=== PATIENT | female | born 1945 | race Caucasian/White ===

== ENCOUNTER 2023-02-04 09:50 | Outpatient (AMB) | payer MEDICARE, OTHER, SELFPAY ==
--- NOTE | 2023-02-04 09:52 | A.OFFVIS_ITS ---
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 Zheng) Co-flex device implant by Dr. Balbuena, arthritis, history of shingles with residual post herpetic neuralgia pain presents today for evaluation for potential spinal cord stimulator. She was referred to our office by Dr. Salguero at [facility] . Her pain is localized to the lower back with radiation to both legs. Pain is aggravated with prolonged standing and walking and relieved with rest or sitting down. Reports occasional and intermittent stabbing and burning pain in the projections of left T9-T10 dermatomes. Back pain is constant and rated at 6/10 on average after taking her medications for pain. She also uses marijuana which she grows at home. Pain affects her daily activities, functioning, mobility and social activities. Denies any fever, weight loss, abdominal or groin pain, weakness, foot drop, bladder or bowel dysfunction or saddle anesthesia. Location Lower back radiates to upper thighs Duration Chronic pain for many years, worse after last back surgery. PHN >15 years Characteristics of symptom or complaint Stabbing, burning, aching, sharp, crushing, wrenching, tight, radiating Aggravating or associated factors Standing, walking, changing positions, cold weather changes, stress Relieving factors Oxycodone, Tylenol, sitting down, lidocaine patches, gabapentin, Flexeril Treatment Injections, PT- completed 2 weeks, massage therapy [facility] Medical History (Updated 02/06/23 @ 10:52 by ARAM Blanco) Hypertension Arthritis Postlaminectomy syndrome, not elsewhere classified Postherpetic polyneuropathy Radiculopathy, lumbar region Surgical History (Updated 02/04/23 @ 10:40 by Alexandra Sanchez) History of back surgery Social History Alcohol intake: current Alcohol intake frequency: 0-2 drinks per day Patient Tobacco Use Status: Former Tobacco user Substance Use Type: Marijuana Substance Use Frequency: Daily Review of Systems Const All systems reviewed & are unremarkable except as noted in HPI and below Physical Exam Vital Signs: Last Vital Signs Pulse 65 02/04/23 09:57 BP 145/67 H 02/04/23 09:57 Pulse Ox 96 02/04/23 09:57 Oxygen Delivery Method Room Air 02/04/23 09:57 BMI result Body Mass Index 29.1 General: Appears afebrile. Alert and oriented. Mood and affect appropriate. Follows and participates in conversation appropriately. Respiratory effort is unlabored. No cough. Able to transition from sit to stand unassisted. Uses cane with ambulation. Ambulates with bilaterally normal heel strike and toe off. Chest Other: Mild TTP and allodynia in the projection of left T9-T10 dermatomes Chest palpation & inspection: normal inspection of the chest, no localized rib tenderness, tenderness no rib xxx, no clavicular xxx, no sternal xxx and no sternoclavicular joint xxx and No rash Back/Spine/Pelvis Other: Limited lumbar ROM due to pain, worse pain with extension. Can flex forward to 65-75 degrees and extend to 5-10 degrees before experiencing lumbar pain. Demonstrates 5/5 strength of quadriceps bilaterally as well as flexion/dorsiflexion of bilateral feet against resistance. 2+ pedal pulses bilaterally. Seated straight leg rise with dorsiflexion negative bilaterally. Diminished patellar and achilles reflexes bilaterally. Facet loading test positive bilaterally. Matt sign, Yg?s, Pelvic compression and Stinchfield tests are negative bilaterally. No groin pain with I/E hip rotations. Valsalva maneuver negative. Cervical Spine: cervical ROM normal and No Cervical spine tenderness Thoracic/Lumbar Spine: thoracic and lumbar spine normal to inspection, Thoracic/lumbar spine scar(s), Lasegue's sign negative, straight leg raise negative bilaterally, pain with thoraco-lumbar ROM, paraspinal muscle tenderness, thoraco-lumbar ROM limited, No thoracic spinal tenderness and lumbar spinal tenderness at L4 and at L5 Pelvis: no buttock tenderness Sacroiliac joints: bilaterally nontender Results Reviewed Results Reviewed: Assessment & Plan Assessment & Plan (1) Lumbar degenerative disc disease: Code(s): M51.36 - Other intervertebral disc degeneration, lumbar region (2) Radiculopathy, lumbar region: Code(s): M54.16 - Radiculopathy, lumbar region (3) Postherpetic polyneuropathy: Code(s): B02.23 - Postherpetic polyneuropathy (4) Postlaminectomy syndrome, not elsewhere classified: Code(s): M96.1 - Postlaminectomy syndrome, not elsewhere classified Plan Discussed treatment options for post laminectomy, lumbar radiculopathy, and PHN including therapeutic injections and neuromodulation with Nevro SCS trial and implant, Sprint PNS trial and Qutenza for PHN. Informational pamphlets were provided to patient today. Patient is hesitant towards SCS trial at this time, she would to review informational pamphlets at home and discuss it with her family. In meantime, she is interested to undergo Caudal KATLYN with catheter with local and fluoroscopy for postlaminectomy syndrome. Expectations, risks and benefits were reviewed. Patient is aware she will be contacted to schedule this procedure. All questions were answered and the patient is in agreement of plan. Follow-up after injections and sooner as needed. Coding Level of Care Code New Pt Level 4 (89632) Diagnoses Lumbar degenerative disc disease M51.36 Radiculopathy, lumbar region M54.16 Postherpetic polyneuropathy B02.23 Postlaminectomy syndrome, not elsewhere classified M96.1
[2023-02-04 09:57] VITALS: BP 145/67; PULSE 65; O2SAT 96; BMI 29.1
== END 2023-02-04 10:40 | disposition home or self-care (01) ==
PROVIDERS: PCP Physician Assistant Medical; Referring Provider Physician Assistant Medical; Visit Provider Nurse Practitioner Family
DX: M51.36 Other intervertebral disc degeneration, lumbar region (principal); M54.16 Radiculopathy, lumbar region; B02.23 Postherpetic polyneuropathy; M96.1 Postlaminectomy syndrome, not elsewhere classified
CPT/HCPCS: 99204

== ENCOUNTER → 2023-02-04 09:50 | Outpatient (BNVA) | payer MEDICARE, OTHER, SELFPAY | PROVIDERS: PCP Physician Assistant Medical; Referring Provider Physician Assistant Medical; Visit Provider Nurse Practitioner Family | DX: M51.36 Other intervertebral disc degeneration, lumbar region (principal); M54.16 Radiculopathy, lumbar region; M96.1 Postlaminectomy syndrome, not elsewhere classified; B02.23 Postherpetic polyneuropathy | CPT/HCPCS: 99202 ==

== ENCOUNTER 2023-03-02 06:08 | Outpatient (REF) | payer MEDICARE, OTHER, SELFPAY ==
--- NOTE | ~2023-03-02 | FL_ITS ---
EXAMINATION: XR FLUOROSCOPY WITH IMAGES CLINICAL INFORMATION: Postlaminectomy syndrome. COMPARISON: None available. TECHNIQUE: Fluoroscopy Supervised By: Little Perry APRN Fluoroscopy Time: 0.3 minutes. Cumulative Dose: 4.76 mGy. DAP: 0.0671 mGym2. Images: 3. FINDINGS: 3 images demonstrate a needle overlying the region of what appears to be the sacrum but this is not optimally seen. Some contrast appears to be present in the epidural space. Please see Little Perry's procedure note for full details. FL/FL guidance in treatment room IMPRESSION: Fluoroscopy provided to the referring physician for pain management.
== END 2023-03-02 06:09 | disposition home or self-care (01) ==
LOC: CF 06:08
PROVIDERS: Visit Provider Anesthesiology
DX: M96.1 Postlaminectomy syndrome, not elsewhere classified (principal); M51.36 Other intervertebral disc degeneration, lumbar region; M54.16 Radiculopathy, lumbar region; B02.23 Postherpetic polyneuropathy
CPT/HCPCS: 62323; J3301; Q9967

== ENCOUNTER 2023-03-02 08:39 | Outpatient (AMB) | payer MEDICARE, OTHER, SELFPAY ==
[2023-03-02 08:43] VITALS: BP 120/60; PULSE 81; RESP 14; O2SAT 98; BMI 29.1
--- NOTE | 2023-03-02 08:43 | MHC.OFFVIS ---
Intake Vital Signs 03/02/23 08:43 03/02/23 09:37 Height 5 ft 2 in 5 ft 2 in Weight 159 lb 2 oz 159 lb 2 oz BMI 29.1 29.1 BP 120/60 130/76 Blood Pressure Location Rt brachial Lt brachial Position Sitting Sitting Respiration 14 14 Pulse 81 67 Pulse Source Pulse Oximeter Pulse Oximeter Pulse Oximetry (%) 98 100 Oxygen Delivery Method Room Air Room Air Comment pre-op post-op Intake Visit Reasons: CAUDAL KATLYN WITH CATHETER Allergies No Known Allergies Allergy (Verified 03/02/23 08:44) [facility] Medical History (Updated 02/06/23 @ 10:52 by ARAM Blanco) Hypertension Arthritis Postlaminectomy syndrome, not elsewhere classified Postherpetic polyneuropathy Radiculopathy, lumbar region Surgical History (Updated 02/04/23 @ 10:40 by Alexandra Sanchez) History of back surgery Social History Alcohol intake: current Alcohol intake frequency: 0-2 drinks per day Patient Tobacco Use Status: Former Tobacco user Substance Use Type: Marijuana Physical Exam Vital Signs: Last Vital Signs Pulse 67 03/02/23 09:37 Resp 14 03/02/23 09:37 BP 130/76 03/02/23 09:37 Pulse Ox 100 03/02/23 09:37 Oxygen Delivery Method Room Air 03/02/23 09:37 BMI result Body Mass Index 29.1 Assessment & Plan Assessment & Plan (1) Lumbar degenerative disc disease: Code(s): M51.36 - Other intervertebral disc degeneration, lumbar region Plan: Caudal KATLYN with catheter. Informed consent was explained to the patient. All questions were explained and answered. The patient was taken inside of the operating room where she was positioned prone on the operating table. Time-out was performed delineating patient's name and date of , correct site, side, the nature of the procedure, patient's allergy, All operating room staff and the patient were participating in OR time-out procedure. the patient's lower back buttock and intragluteal crease were prepped with ChloraPrep and draped with sterile utility draped. C-arm was brought over the operating field and sq picture of sacral bone was delineated on the screen. the target of needle insertion was chosen as a caudal hiatus. The projection of the caudal hiatus to the skin was chosen as point of local anesthetic injection. 2% lidocaine 3 mls were injected into the skin. After that 18 G Tuohy needle was inserted through the skin and under intermittent AP and lateral guide was advanced into the sacral hiatus and into the caudal canal . injection of the contrast demonstrated epidural spread of the contrast. After that 22 g epidual catheter was advanced into the epidural space until the resistance was met and the injection of the contrast was performed again. The injection of the contrast was delineating epidural space at the S1 intervale. After that injection of 30 mls of normal saline was performed into the catheter. Following this injection of the lidocaine 1% PF mixed with kenalog 40 mg was performed with the catheter. The needle and the catheter were removed en mass, the tip of the catheter was intact. Sterile bandaid was applied.The patient tolerated the procedure very well. (2) Radiculopathy, lumbar region: Code(s): M54.16 - Radiculopathy, lumbar region (3) Postherpetic polyneuropathy: Code(s): B02.23 - Postherpetic polyneuropathy (4) Postlaminectomy syndrome, not elsewhere classified: Code(s): M96.1 - Postlaminectomy syndrome, not elsewhere classified Plan Discussed treatment options for post laminectomy, lumbar radiculopathy, and PHN including therapeutic injections and neuromodulation with Nevro SCS trial and implant, Sprint PNS trial and Qutenza for PHN. Informational pamphlets were provided to patient today. Patient is hesitant towards SCS trial at this time, she would to review informational pamphlets at home and discuss it with her family. In meantime, she is interested to undergo Caudal KATLYN with catheter with local and fluoroscopy for postlaminectomy syndrome. Expectations, risks and benefits were reviewed. Patient is aware she will be contacted to schedule this procedure. All questions were answered and the patient is in agreement of plan. Follow-up after injections and sooner as needed. Orders: Orders FL guidance in treatment room Today M96.1 - Postlaminectomy syndrome, not elsewhere classified Coding Level of Care Code Procedure Only Diagnoses Lumbar degenerative disc disease M51.36 Radiculopathy, lumbar region M54.16 Postherpetic polyneuropathy B02.23 Postlaminectomy syndrome, not elsewhere classified M96.1
[2023-03-02 09:37] VITALS: BP 130/76; PULSE 67; RESP 14; O2SAT 100; BMI 29.1
== END 2023-03-02 09:25 | disposition home or self-care (01) ==
PROVIDERS: PCP Physician Assistant Medical; Visit Provider Anesthesiology
DX: M51.36 Other intervertebral disc degeneration, lumbar region (principal); M54.16 Radiculopathy, lumbar region; B02.23 Postherpetic polyneuropathy; M96.1 Postlaminectomy syndrome, not elsewhere classified
CPT/HCPCS: 62323

== ENCOUNTER 2023-03-09 10:37 | Outpatient (AMB) | payer MEDICARE, OTHER, SELFPAY ==
--- NOTE | 2023-03-09 10:39 | A.OFFVIS_ITS ---
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 Cedeno. Patient reports complete resolution of her symptoms for first 2 days after procedure and ongoing 40% pain relief. She continoues to experience increased back pain with prolonged standing and walking for which she takes oxycodone. Patient reports since procedure last week, she took oxycodone only once. We reviewed SCS trial and implant again today for a longer term pain management. Patient will continue her pain levels for next few months and notify our office regarding neuromodulation treatment with SCS trial. Denies any recent cough, cold, infection, fever or other significant changes in medical history or recent hospitalizations since last office visit. Patient denies bladder or bowel dysfunction or saddle anesthesia. Past Procedures: 03/02/23: Caudal KATLYN with catheter- 100% pain relief for 2 days, ongoing 40% pain relief PRIOR: Patient is a pleasant 77 years old female with past medical history of lumbar fusion (2020 Dr. Zheng) Co-flex device implant by Dr. Balbuena, arthritis, history of shingles with residual post herpetic neuralgia pain presents today for evaluation for potential spinal cord stimulator. She was referred to our office by [facility] . Her pain is localized to the lower back with radiation to both legs. Pain is aggravated with prolonged standing and walking and relieved with rest or sitting down. Reports occasional and intermittent stabbing and burning pain in the projections of left T9-T10 dermatomes. Back pain is constant and rated at 6/10 on average after taking her medications for pain. She also uses marijuana which she grows at home. Pain affects her daily activities, functioning, mobility and social activities. Denies any fever, weight loss, abdominal or groin pain, weakness, foot drop, bladder or bowel dysfunction or saddle anesthesia. Location Lower back radiates to upper thighs Duration Chronic pain for many years, worse after last back surgery. PHN >15 years Characteristics of symptom or complaint Stabbing, burning, aching, sharp, crushing, wrenching, tight, radiating Aggravating or associated factors Standing, walking, changing positions, cold weather changes, stress Relieving factors Oxycodone, Tylenol, sitting down, lidocaine patches, gabapentin, Flexeril Treatment Injections, PT- completed 2 weeks, massage therapy [facility] Medical History Hypertension Arthritis Postlaminectomy syndrome, not elsewhere classified Postherpetic polyneuropathy Radiculopathy, lumbar region Surgical History History of back surgery Social History Alcohol intake: current Alcohol intake frequency: 0-2 drinks per day Patient Tobacco Use Status: Former Tobacco user Substance Use Type: Marijuana Review of Systems Const All systems reviewed & are unremarkable except as noted in HPI and below Physical Exam Vital Signs: Last Vital Signs Pulse 89 03/09/23 10:43 BP 158/72 H 03/09/23 10:43 Pulse Ox 97 03/09/23 10:43 Oxygen Delivery Method Room Air 03/09/23 10:43 BMI result Body Mass Index 29.1 General: Appears afebrile. Alert and oriented. Mood and affect appropriate. Follows and participates in conversation appropriately. Respiratory effort is unlabored. No cough. Able to transition from sit to stand unassisted. Uses cane with ambulation. Ambulates with bilaterally normal heel strike and toe off. Back/Spine/Pelvis Cervical Spine: cervical ROM normal and No Cervical spine tenderness Thoracic/Lumbar Spine: thoracic and lumbar spine normal to inspection, Thoracic/lumbar spine scar(s), Lasegue's sign negative, straight leg raise negative bilaterally, pain with thoraco-lumbar ROM, paraspinal muscle tenderness, thoraco-lumbar ROM limited, No thoracic spinal tenderness and lumbar spinal tenderness at L4 and at L5 Extrem General: Yes capillary refill normal, Yes no clubbing, cyanosis or edema and Yes no calf tenderness Results Reviewed Results Reviewed: Assessment & Plan Assessment & Plan (1) Lumbar degenerative disc disease: Code(s): M51.36 - Other intervertebral disc degeneration, lumbar region (2) Radiculopathy, lumbar region: Code(s): M54.16 - Radiculopathy, lumbar region (3) Postlaminectomy syndrome, not elsewhere classified: Code(s): M96.1 - Postlaminectomy syndrome, not elsewhere classified Plan Patient is status post Caudal KATLYN with catheter injection last week. She had 100% pain relief for the first 2 days after procedure and ongoing 40% pain relief. She will continue to monitor her pain levels and notify our office when her symptoms return to baseline. Patient reports improved functioning, mobility and decreased opioid use since procedure. Patient is aware that she can not receive another injection in this area for another three months. Patient is aware to monitor for side effects. We also reviewed longer term interventional treatments and returned to topic of SCS trial and implant. Patient will notify our office on her decision. She is aware of Behavioral Assessment Referral prior to SCS trial. All questions were answered and the patient is in agreement of plan. Follow-up after injections and sooner as needed. Coding Level of Care Code Est Pt Level 3 (10839) Diagnoses Lumbar degenerative disc disease M51.36 Radiculopathy, lumbar region M54.16 Postlaminectomy syndrome, not elsewhere classified M96.1
[2023-03-09 10:43] VITALS: BP 158/72; PULSE 89; O2SAT 97; BMI 29.1
== END 2023-03-09 11:03 | disposition home or self-care (01) ==
PROVIDERS: PCP Physician Assistant Medical; Visit Provider Nurse Practitioner Family
DX: M51.36 Other intervertebral disc degeneration, lumbar region (principal); M54.16 Radiculopathy, lumbar region; M96.1 Postlaminectomy syndrome, not elsewhere classified
CPT/HCPCS: 99213

== ENCOUNTER → 2023-03-09 10:37 | Outpatient (BNVA) | payer MEDICARE, OTHER, SELFPAY | PROVIDERS: PCP Physician Assistant Medical; Visit Provider Nurse Practitioner Family | DX: M96.1 Postlaminectomy syndrome, not elsewhere classified (principal); M51.36 Other intervertebral disc degeneration, lumbar region; M54.16 Radiculopathy, lumbar region; Z98.890 Other specified postprocedural states | CPT/HCPCS: 99212 ==

== ENCOUNTER 2023-05-14 07:16 | Day surgery (SDC) | payer MEDICARE, OTHER, SELFPAY ==
--- NOTE | 2023-05-13 08:53 | P.CONAN_ITS ---
Documented by User: Lorenza Gonzalez NP 05/13/23 08:53 HPI - Anesthesia Eval Consult details Narrative: 77yo F for Spinal Cord Stimulation Trial [facility] Active Problems Active Problems: All Active Problems (Updated 02/06/23 @ 10:52 by ARAM Blanco) Lumbar degenerative disc disease (Acute) Radiculopathy, lumbar region (Acute) Postherpetic polyneuropathy (Acute) Postlaminectomy syndrome, not elsewhere classified (Acute) Past Medical History Medical History Hypertension Arthritis Postlaminectomy syndrome, not elsewhere classified Postherpetic polyneuropathy Radiculopathy, lumbar region Surgical History Surgical History History of back surgery Social History Social History Alcohol intake: current Alcohol intake frequency: a few times a week Patient Tobacco Use Status: Former Tobacco user Second Hand Smoke Exposure: No Use of substances other than those prescribed or required for medical reasons: Yes Substance Use Type: Marijuana Are you DNR?: No Advance Directives: No Advance Directives Information Provided: Yes Advance Directives on File: No Meds Allergies Allergy/AdvReac Type Severity Reaction Status Date / Time No Known Allergies Allergy Verified 03/09/23 10:45 Home Medications Medication Instructions Recorded Confirmed Last Taken Type amlodipine 10 mg tablet 10 mg PO DAILY 02/04/23 05/14/23 Unknown History atorvastatin 40 mg tablet 40 mg PO BEDTIME 02/04/23 05/14/23 05/14/23 History bupropion HCl 300 mg 24 hr tablet, 300 mg PO QAM 02/04/23 05/14/23 05/14/23 History extended release cyclobenzaprine 5 mg tablet 5 mg PO BEDTIME 02/04/23 05/14/23 Unknown History hydrochlorothiazide 25 mg tablet 25 mg PO DAILY 02/04/23 05/14/23 Unknown History oxycodone 5 mg tablet 5 mg PO TID PRN Pain 02/04/23 05/14/23 Unknown History famotidine 40 mg tablet 40 mg PO DAILY 03/09/23 05/14/23 Unknown History lidocaine 5 % topical patch 1 patch topical 03/09/23 03/09/23 Unknown History Assessment and Plan Assessment Anesthesia Assessment: Chart Reviewed Documented by User: Huan Turner MD 05/14/23 08:18 [facility] Past Medical History Medical History Hypertension Arthritis Postlaminectomy syndrome, not elsewhere classified Postherpetic polyneuropathy Radiculopathy, lumbar region Family History Family history of problems with anesthesia: No Surgical History Surgical History History of back surgery History of Problems with Anesthesia: No Social History Social History Alcohol intake: current Alcohol intake frequency: a few times a week Patient Tobacco Use Status: Former Tobacco user Second Hand Smoke Exposure: No Use of substances other than those prescribed or required for medical reasons: Yes Substance Use Type: Marijuana Are you DNR?: No Advance Directives: No Advance Directives Information Provided: Yes Advance Directives on File: No Meds Allergies Allergy/AdvReac Type Severity Reaction Status Date / Time No Known Allergies Allergy Verified 03/09/23 10:45 Home Medications Medication Instructions Recorded Confirmed Last Taken Type amlodipine 10 mg tablet 10 mg PO DAILY 02/04/23 05/14/23 Unknown History atorvastatin 40 mg tablet 40 mg PO BEDTIME 02/04/23 05/14/23 05/14/23 History bupropion HCl 300 mg 24 hr tablet, 300 mg PO QAM 02/04/23 05/14/23 05/14/23 History extended release cyclobenzaprine 5 mg tablet 5 mg PO BEDTIME 02/04/23 05/14/23 Unknown History hydrochlorothiazide 25 mg tablet 25 mg PO DAILY 02/04/23 05/14/23 Unknown History oxycodone 5 mg tablet 5 mg PO TID PRN Pain 02/04/23 05/14/23 Unknown History famotidine 40 mg tablet 40 mg PO DAILY 03/09/23 05/14/23 Unknown History lidocaine 5 % topical patch 1 patch topical 03/09/23 03/09/23 Unknown History Exam Airway Mallampati Class: II TM Dist: <=3cm Neck ROM: Full Loose/Missing/Broken Teeth: No Heart: rrr Lungs: cta b/l Assessment and Plan Assessment Anesthesia Assessment: Anesthesia Plan Discussed and Smoking Cess. Discussed Final Anesthetic Review Family History of Problems with Anesthesia: No History of Problems with Anesthesia: No NPO: Yes ASA Class: II Final Preanesthetic Review: No Changes in Pt Med Stat, Consent Obtained/Reviewed and Anes Risks/Benef Reviewed Patient Risk: Intermediate Procedure Risk: Low Anesthetic Plan Anesthetic Plan: MAC: Disposition: Standard PACU
[2023-05-14] VITALS (7 sets, daily range): BP systolic 115–141; BP diastolic 62–84; PULSE 69–87; RESP 14–19; TEMP 36.2–36.8; O2SAT 96–99; BMI 29.3
--- NOTE | ~2023-05-14 | FL_ITS ---
EXAMINATION: XR FLUOROSCOPY WITH IMAGES CLINICAL INFORMATION: Spinal cord stimulation trial COMPARISON: Intraprocedural fluoroscopy dated 03/12/2023 TECHNIQUE: Fluoroscopy Supervised By: Little Perry. Fluoroscopy Time: 5 minutes 12 seconds. Cumulative Dose: 25.564 mGy. DAP: 75.103 Gycm2. Images: 2. FINDINGS: 2 images demonstrate a spinal cord stimulator overlying the thoracic spine epidural space. Please see Little Perry's procedure note for full details. FL/FL guidance in OR IMPRESSION: Fluoroscopy provided to the referring physician for pain management.
--- NOTE | 2023-05-14 09:13 | MHC.SHP ---
Pre-Procedural Eval Section A - 24 Hr Update-Section A only Date of Service: 05/14/23 The patient is an INPATIENT: No Changes since office visit: Yes Patient answered all questions The patient has been examined within 24 hours of the surgical procedure. The History & Physical has been completed within 30 days and I have reviewed it.: No Section B - Complete if H&P > 30 days Chief Complaint: Postlaminectomy syndrome,Radiculopathy, lumbar Details of Present Illness: as above Relevant Family History (Specify if Yes): No Relevant Social History: None Present Medications: see Short Stay Collaborative assessment Medical History: No relevant PMH History of Previous Operations: Relevant previous surgery/procedure and date(s) Allergies: Allergies Allergy/AdvReac Type Severity Reaction Status Date / Time No Known Allergies Allergy Verified 03/09/23 10:45 Review of Systems Sugical H&P ROS: Negative: Constitution, Cardiovascular, Respiratory, Neurological, Psychiatric, Hem-Onc, Allergic/Immunologic, Gastrointestinal, Genitourinary, Integumentary, Endocrine and Eyes/Ears/Nose/Throat and Yes, Specify: Musculoskeletal (postlaminectomy syndrome ) Exam Surgical H&P Exam: Normal: HEENT, Normal: Heart, Normal: Lungs, Normal: Extremities, Normal: Abdomen, Normal: Skin and Normal: Neurological Plan I have reviewed the history and physical and performed a pertinent physical examination on my patient. No changes have occurred unless specified. Time Spent With Patient Time: Total time managing care of this patient today __5__ minutes.
--- NOTE | 2023-05-14 10:58 | PM.OP ---
Brief Operative Note Date of Service: 05/14/23 Pre-op diagnosis: postlaminectomy syndrome, chronic pain syndrome. Post-op diagnosis: same Procedure: Trial of Nevro SCS. Surgeon: Abdias Cedeno MD Anesthesia: MAC Was an Digital Marketing Assistant used for this Procedure?: No Estimated blood loss (mL): 10 Condition: stable Disposition: PACU
--- NOTE | 2023-05-14 11:00 | P.OP_ITS ---
Operative Note Operative Note Date of Service: 05/14/23 Narrative: Lesa calderon pleasant 77 y.o. female who came to the operating room for trial of spinal cord stimulator Nevro for the treatment of postlaminectomy syndrome and chronic pain syndrome. ?Preoperatively patient received ? cefazolin 2 g approximately 15 minutes before the procedure. After obtaining informed consent the patient was brought to the operating room, he was positioned prone on operating table, ASA monitors were applied and the patient was sedated. ?Time-out was performed delineating correct site, side, the nature of the procedure, patient's allergy, preoperative antibiotic if needed.? All operating room staff was participating in OR time-out procedure. Patient's entire back was prepped with Chloraprep twice and draped with full body fenestrated laparoscopy drape.? Sterilely draped C-arm was brought over operating field and square picture of the T12, L1 and L2 vertebrae? were demonstrated on the screen.? ?Attention FIRST? was concentrated on the T12-L1 epidural interspace. Right pedicle of the L2 was located on the screen and the projection of the pedicle was injected with 5 cc of lidocaine 2% mixture with ropivacaine 0.5% mixture 1- 1.After that 11 blade was used to make a mulugeta on the skin.? 10 cm 14 gauge? introducer epidural needle was inserted through the mulugeta and advanced to T12- L1 epidural interspace.? The advancement of the needle was performed on anterior posterior and lateral views.?Loss of resistance to air? technique were used to locate epidural space., guitar wire was used to confirm epidural space,epidural lead was inserted through the needle and? advanced to the projection of the top of T8 vertebral body strictly on the midline. Lateral view demonstrated posterior position of the lead. ? .? After that? the location of the projection of the LEFT pedicle center of the?L2 vertebras was found on the skin using C-arm.? This location was injected with mixture of lidocaine 2% and Marcaine 0.5% 5 cc.? After that 11 blade was used to make a mulugeta on the skin.? 10 cm 14 gauge introducer epidural needle was inserted through the mulugeta and advanced to T12-L1 epidural interspace.? The advancement of the needle was performed on anterior posterior and lateral views.? Guitar wire and loss of resistance to air technique were used to locate epidural space.? guitar wire was used to confirm epidural space,epidural lead was inserted through the needle and? advanced to the projection of the top T9 vertebral body left to the existing electrode. Lateral view was obtained demonstrating appropriate position of the electrode in the posterior epidural space. Impedance was checked? and it was found to be satisfactory.? Posterior lead placement was verified by lateral x-ray. ?The needles were withdrawn, the stylette wires were removed from the epidural leads.? The anchoring devices were dislodged on the leads and advanced to the level of the skin.? The anchoring devices were sutured with two 0-0 ?Silk sutures per each anchor to the skin of the patient. The central fixation screw of each anchor was rotated until three clicks were heard. The leads were connected to testing device.? Sterile dressing was applied to the patient's back.? The testing device was also taped to the patient's back.? the patient tolerated procedure well she was awaken and taken outside of the operating room to recovery room. he recovered uneventfully.
--- NOTE | 2023-05-14 11:59 | PC.NURSE ---
Addendum entered by Blake Bynum 05/14/23 12:10: Patient was then cleared to be discharged following [employer]IC[employer] giving oxycodone. Original Note: Patient was beleived to have oxycodone allergy by Dr. Cedeno and RUPERT Sanchez. After speaking to patient it was reveiled she takes oxycodone at home. Wilian Garcia and anesthsia cleared patient to have oxycodone at this time. Anesthesia RUPERT Sanchez pulled oxycodone 5mg and oleg to patient. States she will print anesthesia record
== END 2023-05-14 12:25 | disposition home or self-care (01) ==
PROVIDERS: PCP Physician Assistant Medical; Visit Provider Anesthesiology
PROC: (CPT 63650; principal; 2023-05-14 09:20)
DX: M96.1 Postlaminectomy syndrome, not elsewhere classified (principal); G89.4 Chronic pain syndrome; M51.36 Other intervertebral disc degeneration, lumbar region; M54.16 Radiculopathy, lumbar region; B02.29 Other postherpetic nervous system involvement; I10 Essential (primary) hypertension; M19.90 Unspecified osteoarthritis, unspecified site; Z98.1 Arthrodesis status; Z79.899 Other long term (current) drug therapy; Z87.891 Personal history of nicotine dependence
CPT/HCPCS: 63650 ×2; C1713; C1897; J0131; J0690; J1100; J1596; J2250; J2405; J2704; J2795

== ENCOUNTER → 2023-05-14 07:16 | Outpatient (BNV) | payer MEDICARE, OTHER, SELFPAY | PROVIDERS: PCP Physician Assistant Medical; Visit Provider Anesthesiology | DX: M96.1 Postlaminectomy syndrome, not elsewhere classified (principal); M54.16 Radiculopathy, lumbar region | CPT/HCPCS: 63650 ==

== ENCOUNTER 2023-05-20 09:41 | Outpatient (AMB) | payer MEDICARE, OTHER, SELFPAY ==
--- NOTE | 2023-05-20 09:46 | MHC.OFFVIS ---
Intake Vital Signs 05/20/23 09:51 Height 5 ft 2 in Weight 160 lb BMI 29.3 BP 137/65 Blood Pressure Location Rt brachial Position Sitting Pulse 71 Pulse Source Pulse Oximeter Pulse Oximetry (%) 98 Oxygen Delivery Method Room Air Intake Visit Reasons: S/p NEVRO SCS Trial 05/14/23 Intake Note: Pain today 06/01 Balance Wheel Facer Required: No Accompanied by: Self / Same As Patient Allergies No Known Allergies Allergy (Verified 05/20/23 09:51) HPI HPI Comments History of Present Illness Details Patient presents today status post Nevro SCS trial on with Dr. Cedeno. Patient reports 85% pain relief during one week of SCS trial for her back pain and leg pain. Patient notices increased mobility, better functioning, better range of motion in her symptoms and better sleep. She reports being able to stand up almost straight and sleep through the night. Patient would like to proceed with an implant of SCS with Nevro. Frank samuels from [facility] was also present during today's visit. The tape was removed. The stimulating battery pad was disconnected from the epidural leads. These sites of the insertion were cleansed with ChloraPrep and the sutures were severed. The epidural leads were removed and the tips were intact. No erythema, swelling, tenderness or pathological discharge was noted. Bacitracin ointment, dry sterile and Tegaderm dressing were applied. Past Procedures: 05/14/23: Lumbar SCS Trial-85% pain relief 03/02/23: Caudal KATLYN with catheter- 100% pain relief for 2 days, ongoing 40% pain relief PRIOR: Patient is a pleasant 77 years old female with past medical history of lumbar fusion (2020 Dr. Zheng) Co-flex device implant by Dr. Balbuena, arthritis, history of shingles with residual post herpetic neuralgia pain presents today for evaluation for potential spinal cord stimulator. She was referred to our office by Dr. Salguero at [facility] . Her pain is localized to the lower back with radiation to both legs. Pain is aggravated with prolonged standing and walking and relieved with rest or sitting down. Reports occasional and intermittent stabbing and burning pain in the projections of left T9-T10 dermatomes. Back pain is constant and rated at 6/10 on average after taking her medications for pain. She also uses marijuana which she grows at home. Pain affects her daily activities, functioning, mobility and social activities. Denies any fever, weight loss, abdominal or groin pain, weakness, foot drop, bladder or bowel dysfunction or saddle anesthesia. Location Lower back radiates to upper thighs Duration Chronic pain for many years, worse after last back surgery. PHN >15 years Characteristics of symptom or complaint Stabbing, burning, aching, sharp, crushing, wrenching, tight, radiating Aggravating or associated factors Standing, walking, changing positions, cold weather changes, stress Relieving factors Oxycodone, Tylenol, sitting down, lidocaine patches, gabapentin, Flexeril Treatment Injections, PT- completed 2 weeks, massage therapy [facility] Medical History Hypertension Arthritis Postlaminectomy syndrome, not elsewhere classified Postherpetic polyneuropathy Radiculopathy, lumbar region Surgical History History of back surgery Social History Alcohol intake: current Alcohol intake frequency: a few times a week Patient Tobacco Use Status: Former Tobacco user Second Hand Smoke Exposure: No Substance Use Type: Marijuana Review of Systems Const All systems reviewed & are unremarkable except as noted in HPI and below Physical Exam Vital Signs: Last Vital Signs Pulse 71 05/20/23 09:51 BP 137/65 05/20/23 09:51 Pulse Ox 98 05/20/23 09:51 Oxygen Delivery Method Room Air 05/20/23 09:51 BMI result Body Mass Index 29.3 General: Appears afebrile. Alert and oriented. Mood and affect appropriate. Follows and participates in conversation appropriately. Respiratory effort is unlabored. Able to transition from sit to stand unassisted. Uses cane with ambulation. Ambulates with bilaterally normal heel strike and toe off. Leads removed with tips intact. Assessment & Plan Assessment & Plan (1) Lumbar degenerative disc disease: Code(s): M51.36 - Other intervertebral disc degeneration, lumbar region (2) Radiculopathy, lumbar region: Code(s): M54.16 - Radiculopathy, lumbar region (3) Postlaminectomy syndrome, not elsewhere classified: Code(s): M96.1 - Postlaminectomy syndrome, not elsewhere classified (4) Chronic low back pain: Code(s): M54.50 - Low back pain, unspecified; G89.29 - Other chronic pain Plan Schedule for Lumbar SCS Implant with sedation and fluoroscopy given good relief seen from trial. Reviewed with patient the risks and benefits of spinal cord stimulation implant in greater detail. Patient reports better mobility, better social interactions, better activities of daily living and improved sleep. All questions and concerns have been answered and patient agreed with the plan. Follow up after SCS implant and sooner as needed. Anticoagulation: Patient is not on anticoagulation. Justification for interventional therapy: ? Patient with average pain > 6/10 ? Patient has exhausted conservative therapy ? SCS trial 85% pain relief The risks, consequences, alternatives, and benefits of various treatment options were discussed with the patient in great detail, including conservative management, injections and procedures. Coding Level of Care Code Est Pt Level 4 (95533) Diagnoses Lumbar degenerative disc disease M51.36 Radiculopathy, lumbar region M54.16 Postlaminectomy syndrome, not elsewhere classified M96.1 Chronic low back pain M54.50; G89.29
[2023-05-20 09:51] VITALS: BP 137/65; PULSE 71; O2SAT 98; BMI 29.3
== END 2023-05-20 10:10 | disposition home or self-care (01) ==
PROVIDERS: PCP Physician Assistant Medical; Visit Provider Nurse Practitioner Family
DX: M51.36 Other intervertebral disc degeneration, lumbar region (principal); M54.16 Radiculopathy, lumbar region; M96.1 Postlaminectomy syndrome, not elsewhere classified; M54.50 Low back pain, unspecified; G89.29 Other chronic pain
CPT/HCPCS: 99024

== ENCOUNTER → 2023-05-20 09:41 | Outpatient (BNVA) | payer MEDICARE, OTHER, SELFPAY | PROVIDERS: PCP Physician Assistant Medical; Visit Provider Nurse Practitioner Family | DX: M96.1 Postlaminectomy syndrome, not elsewhere classified (principal); M51.16 Intervertebral disc disorders with radiculopathy, lumbar region; M54.50 Low back pain, unspecified; G89.29 Other chronic pain; B02.23 Postherpetic polyneuropathy | CPT/HCPCS: 99212 ==

== ENCOUNTER 2023-06-11 09:21 | Day surgery (SDC) | payer MEDICARE, OTHER, SELFPAY ==
[2023-06-01 15:05] VITALS: BMI 29.3
[2023-06-11] VITALS (11 sets, daily range): BP systolic 127–149; BP diastolic 56–76; PULSE 58–77; RESP 16–18; TEMP 36.2–37.6; O2SAT 98–100; BMI 30.9
--- NOTE | ~2023-06-11 | FL_ITS ---
EXAMINATION: XR FLUOROSCOPY WITH IMAGES CLINICAL INFORMATION: Spinal cord stimulation implant COMPARISON: Fluoroscopic guidance for 05/12/2023 TECHNIQUE: Fluoroscopy Supervised By: Dr. Abdias Cedeno. Fluoroscopy Time: 4 minutes 19.3 seconds. Cumulative Dose: 43.652 mGy. DAP: 18.988 Gycm2. Images: 3. FINDINGS: 2 images demonstrate a spinal cord stimulator overlying the thoracic spine epidural space. A single image demonstrates interpedicular screws and fusion rods in the lower lumbar spine on the right. Please see Dr. Cedeno's procedure note for full details. FL/FL guidance in OR IMPRESSION: Fluoroscopy provided to the referring physician for pain management.
[2023-06-11] MEDS: Lactated Ringers 1,000 ML 80 ML IVCONT (10:34)
--- NOTE | 2023-06-11 10:55 | HO.ANESPROP2 ---
[facility] Active Problems Active Problems: All Active Problems Chronic low back pain (Acute) Lumbar degenerative disc disease (Acute) Radiculopathy, lumbar region (Acute) Postherpetic polyneuropathy (Acute) Postlaminectomy syndrome, not elsewhere classified (Acute) Past Medical History Medical History (Updated 06/01/23 @ 15:00 by Rylee Goodrich RN) Elevated cholesterol Hypertension Arthritis Postlaminectomy syndrome, not elsewhere classified Postherpetic polyneuropathy Radiculopathy, lumbar region Family History Family history of problems with anesthesia: No Surgical History Surgical History (Updated 06/11/23 @ 09:46 by Arianne Mckeon) H/O lumpectomy History of surgery History of back surgery History of Problems with Anesthesia: No Social History Social History Alcohol intake: current Alcohol intake frequency: a few times a week Patient Tobacco Use Status: Former Tobacco user Quit Date: 2003 Tobacco use type: Cigarette Years Smoked: 30 Smoked in Last 30 Days: No Second Hand Smoke Exposure: No Use of substances other than those prescribed or required for medical reasons: Yes Substance Use Type: Marijuana Substance Use Frequency: Daily Are you DNR?: No Advance Directives: No Advance Directives Information Provided: Yes Meds Allergies Allergy/AdvReac Type Severity Reaction Status Date / Time No Known Allergies Allergy Verified 06/11/23 09:44 Active Medications: Current Medications Lactated Ringer's (Lr) 1,000 mls @ 80 mls/hr IVCONT .[id number] WILSON Last Admin: 06/11/23 10:34 Dose: 80 mls/hr Home Medications ?Medication ?Instructions ?Recorded ?Confirmed ?Last Taken ?Type amlodipine 10 mg tablet 10 mg PO DAILY 02/04/23 06/01/23 Unknown History atorvastatin 40 mg tablet 40 mg PO BEDTIME 02/04/23 06/11/23 06/11/23 History bupropion HCl 300 mg 24 hr tablet, 300 mg PO QAM 02/04/23 06/01/23 05/14/23 History extended release hydrochlorothiazide 25 mg tablet 25 mg PO DAILY 02/04/23 06/11/23 06/10/23 History oxycodone 5 mg tablet 5 mg PO TID PRN Pain 02/04/23 06/01/23 Unknown History famotidine 40 mg tablet 40 mg PO DAILY 03/09/23 06/01/23 Unknown History lidocaine 5 % topical patch 1 patch topical DAILY 03/09/23 06/01/23 Unknown History mirabegron 50 mg tablet,extended 50 mg PO DAILY 05/20/23 06/01/23 Unknown History release 24 hr (Myrbetriq) Tylenol 2 tab PO DAILY PRN Pain 06/11/23 06/11/23 06/11/23 History 1000 mg Exam Height,Weight and Vital Signs: Height 5 ft 2 in Weight 76.657 kg Last Vital Signs Temp 99.7 F 06/11/23 09:56 Pulse 63 06/11/23 09:56 Resp 16 06/11/23 09:56 BP 149/57 H 06/11/23 09:56 Pulse Ox 99 06/11/23 09:56 O2 Del Method Room Air 06/11/23 09:56 Airway Mallampati Class: II TM Dist: >3cm Neck ROM: Full Loose/Missing/Broken Teeth: Yes (18 broken) Heart: rrr Lungs: cta Assessment and Plan Final Anesthetic Review Family History of Problems with Anesthesia: No History of Problems with Anesthesia: No NPO: Yes ASA Class: II Final Preanesthetic Review: No Changes in Pt Med Stat, Meds/Allgs Chart Reviewed, Consent Obtained/Reviewed and Anes Risks/Benef Reviewed Patient Risk: Intermediate Procedure Risk: Intermediate Anesthetic Plan Anesthetic Plan: GA Disposition: Standard PACU
--- NOTE | 2023-06-11 12:26 | MHC.SHP ---
Pre-Procedural Eval Section A - 24 Hr Update-Section A only Date of Service: 06/11/23 The patient is an INPATIENT: No Changes since office visit: Yes Patient answered all questions The patient has been examined within 24 hours of the surgical procedure. The History & Physical has been completed within 30 days and I have reviewed it.: No Section B - Complete if H&P > 30 days Chief Complaint: Postlaminectomy syndrome,Other intervertebral disc Details of Present Illness: as above Relevant Family History (Specify if Yes): No Relevant Social History: None Present Medications: None Medical History: No relevant PMH History of Previous Operations: Relevant previous surgery/procedure and date(s) Allergies: Allergies Allergy/AdvReac Type Severity Reaction Status Date / Time No Known Allergies Allergy Verified 06/11/23 09:44 Review of Systems Sugical H&P ROS: Negative: Constitution, Cardiovascular, Respiratory, Neurological, Psychiatric, Hem-Onc, Allergic/Immunologic, Gastrointestinal, Genitourinary, Integumentary, Endocrine and Eyes/Ears/Nose/Throat and Yes, Specify: Musculoskeletal (postlaminectomy syndrome ) Exam Surgical H&P Exam: Normal: HEENT, Normal: Heart, Normal: Lungs, Normal: Extremities, Normal: Abdomen, Normal: Skin and Normal: Neurological Plan I have reviewed the history and physical and performed a pertinent physical examination on my patient. No changes have occurred unless specified. Time Spent With Patient Time: Total time managing care of this patient today ____ minutes.
--- NOTE | 2023-06-11 14:25 | PM.OP ---
Brief Operative Note Date of Service: 06/11/23 Pre-op diagnosis: Postlaminectomy syndrome chronic pain syndrome Post-op diagnosis: same Procedure: Implantation of Nevro spinal cord stimulator Implants: Omnia Nevro battery and 2 ascending epidural stimulating leads. Surgeon: Abdias Ceedno MD Anesthesia: GETA Was an Manager Educational used for this Procedure?: No Estimated blood loss (mL): 16 Pathology: none sent Condition: stable Disposition: PACU
--- NOTE | 2023-06-11 14:28 | W.PM.OPN ---
Operative Note Operative Note Date of Service: 06/11/23 Narrative: Implantation of the SCS Nevro. Mcfadden is very pleasant 77 years old female who came today into the operating room for implantation of spinal cord stimulator for the treatment of chronic pain syndrome and postlaminectomy syndrome.. Preoperatively patient received ?cefazolin 2 g approximately 30 minutes before the procedure. After obtaining informed consent the patient was brought to the operating room, she was supine on the stretcher? [employer] monitors were applied and general anesthesia was induced with endotracheal intubation. After that patient was transferred to the operating table prone all pressure points were protected. ?Time-out was performed delineating correct site, side, the nature of the procedure, patient's allergy, preoperative antibiotic if needed.? All operating room staff was participating in OR time-out procedure Patient's entire back was prepped with ChloraPrep twice and draped with full body fenestrated drape and ioban film.? Sterilely draped C-arm was brought over operating field and square picture of? T12-L1 and [id number] as were demonstrated on the screen.? The skin was? infiltrated with the mixture of lidocaine 2% and ropivacaine 0.5% in the projection of m L1 and L2? spinouse procesess.?? After that? number 10 Blade scalpel was used to perform strict midline 6 cm? long incision.? the incision was widened and deepened until the prevertebral fascia was reached. Thorough hemostasis was obtained,? After that attention? was concentrated on the T12-L1 epidural interspace.? The location of the projection of the right pedicle center of the? L2 vertebra was found on the fascia using C-arm.? This location was injected with mixture of lidocaine 2% and Marcaine 0.5% 5 cc.? ? 10 cm 14 gauge? introducer epidural needle was inserted through the prevertebral fascia and advanced to? T12-L1 epidural interspace.? The advancement of the needle was performed on anterior posterior and lateral views.? Guitar wire and loss of resistance technique were used to locate epidural space.? When guitar wire was spread in the epidural fashion, epidural lead was inserted through the needle and it was advanced to the posterior epidural space.The lead was advanced? strictly at the midline? approximately to the?bottom of T7 vertebra in the posterior epidural space. Location in posterior epidural space was verified on lateral view. ? After that location of the projection of the LEFT pedicle center of the L2 vertebra was found using C-arm.? This location was injected with mixture of lidocaine 2% and Marcaine 0.5% 5 cc.?10 cm 14 gauge? introducer epidural needle was inserted through the fascia and advanced to T12-L1 epidural interspace.? The advancement of the needle was performed on anterior posterior and lateral views.? Guitar wire and loss of resistance technique were used to locate epidural space.? When guitar wire was spread in the epidural fashion, epidural lead was inserted through the needle.? Loss of resistance to air technique and guitar wire were used to locate epidural space. After that the? epidural lead was advanced? slightly left to the existing electrode to the top of the? T9 vertebra in the posterior epidural space slightly left to the existing electrode.? lateral image was obtained demonstrating both epidural leads in posterior epidural space. After satisfactory position of the leads were established the needles were withdrawn, the stylette wires were removed from the epidural leads.? The anchoring devices were dislodged on the leads and advanced to the level of the prevertebral fascia.?After that the anchoring devices were sutured to the prevertebral fascia using Tycron 0-0 sutures - 2 sutures per each anchoroing device?. The both fixation screws were locked until 3 clicks heard. The wound was irrigated with vancomycin containing saline and packed with the 4x4 soaked with the same saline solution. After that attention was concentrated on the right upper buttock of the patient ? were the decision was made to implant the battery.? Three cm below the top of the right iliac crest horizontal incision was made 6.5 cm long using 10 blade scalpel, hemostasis was performed using? electric cautery..? Using sharp and dull dissection pocket for the battery was formed in caudad direction from the incision.? Thorough hemostasis was performed.? After that the? wound pocket was? irrigated with vancomycin containing normal saline and tunneling device was used to connect midline incision and upper buttock incision Tunneling device was used to connect the two wounds.? The epidural leads were dislodged from midline incision to the right upper buttock incision through the tunneling device.? After that they were connected to the [employer] battery and impedance was checked? and found to be satisfactory with all leads connected.? Anchoring? screws were fixed on the back of the battery until 3 clicks were heard..? Tycron of 0- 0 sutures were applied to the superior lateral and superior medial corners of the upper portion of the pocket? wound and after that the anchoring sutures were connected to the anchoring orifices on the battery.? Electrodes were gathered behind the body of the battery and battery was dislodged into the? subcutaneous pocket wound.? The sutures were tied and? irrigation was repeated.? After that?0-0 Polysorb sutures? used to close the? both wounds and the 0-2 polisorb sutures were used to apptoximate the level of the skin , [place] were applied to the skin and bacitracin ointment was applied to the staple lines. The sterile dressing comprised of several 4x4 for each wound was affixed to the skin using Tegaderm tape.. The patient was transferred supine on the stretcher,? awaken, Extubated and transferred stable to the PACU.
[2023-06-11] MEDS: HYDROmorphone HCl 0.5 MG/0.5 ML SYRINGE IVPUSH ×3 (14:48→15:08)
== END 2023-06-11 16:16 | disposition home or self-care (01) ==
PROVIDERS: PCP Physician Assistant Medical; Visit Provider Anesthesiology
PROC: (CPT 63685; principal; 2023-06-11 11:20)
DX: M51.36 Other intervertebral disc degeneration, lumbar region (principal); M54.16 Radiculopathy, lumbar region; M96.1 Postlaminectomy syndrome, not elsewhere classified; G89.29 Other chronic pain; M54.50 Low back pain, unspecified; B02.23 Postherpetic polyneuropathy; I10 Essential (primary) hypertension; E78.00 Pure hypercholesterolemia, unspecified; M19.90 Unspecified osteoarthritis, unspecified site; Z79.899 Other long term (current) drug therapy; Z98.1 Arthrodesis status; Z87.891 Personal history of nicotine dependence
CPT/HCPCS: 63685; 63650 ×2; C1778; C1889; J0690; J1170; J2250; J2704; J2795; J3010; J3370

== ENCOUNTER → 2023-06-11 09:21 | Outpatient (BNV) | payer MEDICARE, OTHER, SELFPAY | PROVIDERS: PCP Physician Assistant Medical; Visit Provider Anesthesiology | DX: M96.1 Postlaminectomy syndrome, not elsewhere classified (principal); G89.4 Chronic pain syndrome | CPT/HCPCS: 63650; 63685 ==

== ENCOUNTER 2023-06-17 09:40 | Outpatient (AMB) | payer MEDICARE, OTHER, SELFPAY ==
[2023-06-17 09:42] VITALS: BP 150/72; PULSE 69; O2SAT 98; BMI 30.6
--- NOTE | 2023-06-17 09:42 | MHC.OFFVIS ---
Vital Signs 06/17/23 09:42 Height 5 ft 2 in Weight 167 lb 2 oz BMI 30.6 BP 150/72 H Blood Pressure Location Rt brachial Position Sitting Pulse 69 Pulse Source Pulse Oximeter Pulse Oximetry (%) 98 Oxygen Delivery Method Room Air Intake Visit Reasons: S/p Nevro SCS Implant 06/11/23 Allergies No Known Allergies Allergy (Verified 06/17/23 09:46) HPI Comments Details: Lesa is here today status post Nevro SCS implant on 05/11/2023. She reports today pain 5/10. She is on minimal power with her Nevro SCS. She continues to were abdominal binder. The abdominal binder was trimmed today appropriately to apply the pressure on the to the area of the device. Limitation in hygiene and mobility explained to the patient again. The patient was asking multiple questions and they were answered. The dressing was removed the area of the wounds were inspected. There is no redness no swelling no pathological discharge no tenderness on palpation in the area of both wounds. Christian are competent. The dressing was changed with bacitracin and sterile gauze. Tegaderm was applied. Patient will be in my office in 1 week to remove christian. After that the device will be turned on to full power. Patient reports 85% pain relief during one week of SCS trial for her back pain and leg pain. Patient notices increased mobility, better functioning, better range of motion in her symptoms and better sleep. She reports being able to stand up almost straight and sleep through the night. Patient would like to proceed with an implant of SCS with Nevro. Frank samuels from [facility] was also present during today's visit. Past Procedures: 05/14/23: Lumbar SCS Trial-85% pain relief 03/02/23: Caudal KATLYN with catheter- 100% pain relief for 2 days, ongoing 40% pain relief PRIOR: Patient is a pleasant 77 years old female with past medical history of lumbar fusion (2020 Dr. Zheng) Co-flex device implant by Dr. Balbuena, arthritis, history of shingles with residual post herpetic neuralgia pain presents today for evaluation for potential spinal cord stimulator. [facility] Her pain is localized to the lower back with radiation to both legs. Pain is aggravated with prolonged standing and walking and relieved with rest or sitting down. Reports occasional and intermittent stabbing and burning pain in the projections of left T9-T10 dermatomes. Back pain is constant and rated at 6/10 on average after taking her medications for pain. She also uses marijuana which she grows at home. Pain affects her daily activities, functioning, mobility and social activities. Denies any fever, weight loss, abdominal or groin pain, weakness, foot drop, bladder or bowel dysfunction or saddle anesthesia. Location Lower back radiates to upper thighs Duration Chronic pain for many years, worse after last back surgery. PHN >15 years Characteristics of symptom or complaint Stabbing, burning, aching, sharp, crushing, wrenching, tight, radiating Aggravating or associated factors Standing, walking, changing positions, cold weather changes, stress Relieving factors Oxycodone, Tylenol, sitting down, lidocaine patches, gabapentin, Flexeril Treatment Injections, PT- completed 2 weeks, massage therapy [facility] Medical History (Updated 06/01/23 @ 15:00 by Rylee Goodrich RN) Elevated cholesterol Hypertension Arthritis Postlaminectomy syndrome, not elsewhere classified Postherpetic polyneuropathy Radiculopathy, lumbar region Surgical History (Updated 06/11/23 @ 09:46 by Arianne Mckeon) H/O lumpectomy History of surgery History of back surgery Social History Alcohol intake: current Alcohol intake frequency: a few times a week Patient Tobacco Use Status: Former Tobacco user Quit Date: 2003 Tobacco use type: Cigarette Years Smoked: 30 Second Hand Smoke Exposure: No Substance Use Type: Marijuana Review of Systems Const All systems reviewed & are unremarkable except as noted in HPI and below Physical Exam Vital Signs: Last Vital Signs Pulse 69 06/17/23 09:42 BP 150/72 H 06/17/23 09:42 Pulse Ox 98 06/17/23 09:42 Oxygen Delivery Method Room Air 06/17/23 09:42 BMI result Body Mass Index 30.6 General: Appears afebrile. Alert and oriented. Mood and affect appropriate. Follows and participates in conversation appropriately. Respiratory effort is unlabored. No cough. Able to transition from sit to stand unassisted. Uses cane with ambulation. Ambulates with bilaterally normal heel strike and toe off. Chest Other: Mild TTP and allodynia in the projection of left T9-T10 dermatomes Chest palpation & inspection: normal inspection of the chest, no localized rib tenderness, tenderness no rib xxx, no clavicular xxx, no sternal xxx and no sternoclavicular joint xxx and No rash Back/Spine/Pelvis Other: Limited lumbar ROM due to pain, worse pain with extension. Can flex forward to 65-75 degrees and extend to 5-10 degrees before experiencing lumbar pain. Demonstrates 5/5 strength of quadriceps bilaterally as well as flexion/dorsiflexion of bilateral feet against resistance. 2+ pedal pulses bilaterally. Seated straight leg rise with dorsiflexion negative bilaterally. Diminished patellar and achilles reflexes bilaterally. Facet loading test positive bilaterally. Matt sign, Yg?s, Pelvic compression and Stinchfield tests are negative bilaterally. No groin pain with I/E hip rotations. Valsalva maneuver negative. Cervical Spine: cervical ROM normal and No Cervical spine tenderness Thoracic/Lumbar Spine: thoracic and lumbar spine normal to inspection, Thoracic/lumbar spine scar(s), Lasegue's sign negative, straight leg raise negative bilaterally, pain with thoraco-lumbar ROM, paraspinal muscle tenderness, thoraco-lumbar ROM limited, No thoracic spinal tenderness and lumbar spinal tenderness at L4 and at L5 Pelvis: no buttock tenderness Sacroiliac joints: bilaterally nontender Assessment & Plan Assessment & Plan (1) Lumbar degenerative disc disease: Code(s): M51.36 - Other intervertebral disc degeneration, lumbar region Category: Medical (2) Radiculopathy, lumbar region: Code(s): M54.16 - Radiculopathy, lumbar region Category: Medical (3) Postlaminectomy syndrome, not elsewhere classified: Code(s): M96.1 - Postlaminectomy syndrome, not elsewhere classified Category: Medical (4) Chronic low back pain: Code(s): M54.50 - Low back pain, unspecified; G89.29 - Other chronic pain Category: Medical Plan Results of the Lumbar SCS Implant as above. Next appointment in 1 week. Staple removals at that appointment. After that the device will be turned full power. Anticoagulation: Patient is not on anticoagulation. Justification for interventional therapy: ? Patient with average pain > 6/10 ? Patient has exhausted conservative therapy ? SCS trial 85% pain relief Coding Level of Care Code Est Pt Level 3 (56423) Diagnoses Lumbar degenerative disc disease M51.36 Radiculopathy, lumbar region M54.16 Postlaminectomy syndrome, not elsewhere classified M96.1 Chronic low back pain M54.50; G89.29
== END 2023-06-17 10:12 | disposition home or self-care (01) ==
PROVIDERS: PCP Physician Assistant Medical; Visit Provider Anesthesiology
DX: M51.36 Other intervertebral disc degeneration, lumbar region (principal); M54.16 Radiculopathy, lumbar region; M96.1 Postlaminectomy syndrome, not elsewhere classified; M54.50 Low back pain, unspecified; G89.29 Other chronic pain
CPT/HCPCS: 99024

== ENCOUNTER → 2023-06-17 09:40 | Outpatient (BNVA) | payer MEDICARE, OTHER, SELFPAY | PROVIDERS: PCP Physician Assistant Medical; Visit Provider Anesthesiology | DX: M51.36 Other intervertebral disc degeneration, lumbar region (principal); M54.16 Radiculopathy, lumbar region; M54.50 Low back pain, unspecified; G89.29 Other chronic pain; M96.1 Postlaminectomy syndrome, not elsewhere classified; Z96.82 Presence of neurostimulator | CPT/HCPCS: 99212 ==

== ENCOUNTER 2023-06-24 09:32 | Outpatient (AMB) | payer MEDICARE, OTHER, SELFPAY ==
--- NOTE | 2023-06-24 09:35 | A.OFFVIS_ITS ---
Vital Signs 06/24/23 09:42 Height 5 ft 2 in Weight 167 lb 2 oz BMI 30.6 BP 132/84 Blood Pressure Location Lt brachial Position Sitting Respiration 16 Pulse 76 Pulse Source Pulse Oximeter Pulse Oximetry (%) 98 Oxygen Delivery Method Room Air Intake Visit Reasons: 2 Week F/u S/p Nevro SCS Implant 06/11/23 Intake Note: Patient comes in for 2 weeks follow up. Reports pain 06/01. Allergies No Known Allergies Allergy (Verified 06/24/23 09:42) HPI Comments Details: Lesa is here today status post Nevro SCS implant on 05/11/2023. SHE REPORTED VERY GOOD PAIN IMPROVEMENT ON NEVRO SCS. She continues to wear abdominal binder. T she bought electrical bicycle to exercise however I requested her to avoid riding it for 6 more weeks. Limitation in hygiene and mobility explained to the patient again. The dressing was removed the area of the wounds were inspected. There is no redness no swelling no pathological discharge no tenderness on palpation in the area of both wounds. [place] were removed The dressing was changed with bacitracin and Tegaderm. The machine will be turned onto full power and patient will start to charge the battery now. Patient reports 85% pain relief during one week of SCS trial for her back pain and leg pain. Patient notices increased mobility, better functioning, better range of motion in her symptoms and better sleep. She reports being able to stand up almost straight and sleep through the night. Patient would like to proceed with an implant of SCS with Nevro. Frank samuels from [facility] was also present during today's visit. Past Procedures: 05/14/23: Lumbar SCS Trial-85% pain relief 03/02/23: Caudal KATLYN with catheter- 100% pain relief for 2 days, ongoing 40% pain relief PRIOR: Patient is a pleasant 77 years old female with past medical history of lumbar fusion (2020 Dr. Zheng) Co-flex device implant by Dr. Balbuena, arthritis, history of shingles with residual post herpetic neuralgia pain presents today for evaluation for potential spinal cord stimulator. She was referred to our office by Dr. Salguero at [facility] . Her pain is localized to the lower back with radiation to both legs. Pain is aggravated with prolonged standing and walking and relieved with rest or sitting down. Reports occasional and intermittent stabbing and burning pain in the projections of left T9-T10 dermatomes. Back pain is constant and rated at 6/10 on average after taking her medications for pain. She also uses marijuana which she grows at home. Pain affects her daily activities, functioning, mobility and social activities. Denies any fever, weight loss, abdominal or groin pain, weakness, foot drop, bladder or bowel dysfunction or saddle anesthesia. Location Lower back radiates to upper thighs Duration Chronic pain for many years, worse after last back surgery. PHN >15 years Characteristics of symptom or complaint Stabbing, burning, aching, sharp, crushing, wrenching, tight, radiating Aggravating or associated factors Standing, walking, changing positions, cold weather changes, stress Relieving factors Oxycodone, Tylenol, sitting down, lidocaine patches, gabapentin, Flexeril Treatment Injections, PT- completed 2 weeks, massage therapy COUNT INCLUDES [facility] Medical History (Updated 06/01/23 @ 15:00 by Rylee Goodrich RN) Elevated cholesterol Hypertension Arthritis Postlaminectomy syndrome, not elsewhere classified Postherpetic polyneuropathy Radiculopathy, lumbar region Surgical History (Updated 06/11/23 @ 09:46 by Arianne Mckeon) H/O lumpectomy History of surgery History of back surgery Social History Alcohol intake: current Alcohol intake frequency: a few times a week Patient Tobacco Use Status: Former Tobacco user Quit Date: 2003 Tobacco use type: Cigarette Years Smoked: 30 Second Hand Smoke Exposure: No Substance Use Type: Marijuana Review of Systems Const All systems reviewed & are unremarkable except as noted in HPI and below Physical Exam Vital Signs: Last Vital Signs Pulse 76 06/24/23 09:42 Resp 16 06/24/23 09:42 BP 132/84 06/24/23 09:42 Pulse Ox 98 06/24/23 09:42 Oxygen Delivery Method Room Air 06/24/23 09:42 BMI result Body Mass Index 30.6 General: Appears afebrile. Alert and oriented. Mood and affect appropriate. Follows and participates in conversation appropriately. Respiratory effort is unlabored. No cough. Able to transition from sit to stand unassisted. Uses cane with ambulation. Ambulates with bilaterally normal heel strike and toe off. Chest Other: Mild TTP and allodynia in the projection of left T9-T10 dermatomes Chest palpation & inspection: normal inspection of the chest, no localized rib tenderness, tenderness no rib xxx, no clavicular xxx, no sternal xxx and no sternoclavicular joint xxx and No rash Back/Spine/Pelvis Other: Limited lumbar ROM due to pain, worse pain with extension. Can flex forward to 65-75 degrees and extend to 5-10 degrees before experiencing lumbar pain. Demonstrates 5/5 strength of quadriceps bilaterally as well as flexion/dorsiflexion of bilateral feet against resistance. 2+ pedal pulses bilaterally. Seated straight leg rise with dorsiflexion negative bilaterally. Diminished patellar and achilles reflexes bilaterally. Facet loading test positive bilaterally. Matt sign, Yg?s, Pelvic compression and Stinchfield tests are negative bilaterally. No groin pain with I/E hip rotations. Valsalva maneuver negative. Cervical Spine: cervical ROM normal and No Cervical spine tenderness Thoracic/Lumbar Spine: thoracic and lumbar spine normal to inspection, Thoracic/lumbar spine scar(s), Lasegue's sign negative, straight leg raise negative bilaterally, pain with thoraco-lumbar ROM, paraspinal muscle tenderness, thoraco-lumbar ROM limited, No thoracic spinal tenderness and lumbar spinal tenderness at L4 and at L5 Pelvis: no buttock tenderness Sacroiliac joints: bilaterally nontender Assessment & Plan Assessment & Plan (1) Lumbar degenerative disc disease: Code(s): M51.36 - Other intervertebral disc degeneration, lumbar region Category: Medical (2) Radiculopathy, lumbar region: Code(s): M54.16 - Radiculopathy, lumbar region Category: Medical (3) Postlaminectomy syndrome, not elsewhere classified: Code(s): M96.1 - Postlaminectomy syndrome, not elsewhere classified Category: Medical (4) Chronic low back pain: Code(s): M54.50 - Low back pain, unspecified; G89.29 - Other chronic pain Category: Medical Plan Results of the Lumbar SCS Implant as above. Christian are removed next appointment is as needed. Coding Level of Care Code Est Pt Level 3 (57485) Diagnoses Lumbar degenerative disc disease M51.36 Radiculopathy, lumbar region M54.16 Postlaminectomy syndrome, not elsewhere classified M96.1 Chronic low back pain M54.50; G89.29
[2023-06-24 09:42] VITALS: BP 132/84; PULSE 76; RESP 16; O2SAT 98; BMI 30.6
== END 2023-06-24 10:05 | disposition home or self-care (01) ==
PROVIDERS: PCP Physician Assistant Medical; Visit Provider Anesthesiology
DX: M51.36 Other intervertebral disc degeneration, lumbar region (principal); M54.16 Radiculopathy, lumbar region; M96.1 Postlaminectomy syndrome, not elsewhere classified; M54.50 Low back pain, unspecified; G89.29 Other chronic pain
CPT/HCPCS: 99213

== ENCOUNTER → 2023-06-24 09:32 | Outpatient (BNVA) | payer MEDICARE, OTHER, SELFPAY | PROVIDERS: PCP Physician Assistant Medical; Visit Provider Anesthesiology | DX: M51.36 Other intervertebral disc degeneration, lumbar region (principal); M54.16 Radiculopathy, lumbar region; M96.1 Postlaminectomy syndrome, not elsewhere classified; M54.50 Low back pain, unspecified; G89.29 Other chronic pain | CPT/HCPCS: 99212 ==

== ENCOUNTER → 2023-11-18 14:35 | Outpatient (BNVA) | payer MEDICARE, OTHER, SELFPAY | PROVIDERS: PCP Physician Assistant Medical; Visit Provider Nurse Practitioner Family ==

== ENCOUNTER 2024-01-27 08:41 | Outpatient (AMB) | payer MEDICARE, OTHER, SELFPAY ==
--- NOTE | 2024-01-27 08:46 | A.OFFVIS_ITS ---
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 Physical exam is as below. I suspect the arthritis of the right hip. I will send her for the x-ray. The battery of Nevro SCS is implanted on the right and could be an obstacle to perform the images as well as to perform the injection. But I do not mind to try. I also recommended her to take ibuprofen 200 mg q.6 hours not p.r.n. and rather on the clock for the next 10 days to help her pain. I will see her for the right hip injection. Prior: status post Nevro SCS implant on 05/11/2023. Past Procedures: 05/14/23: Lumbar SCS Trial-85% pain relief 03/02/23: Caudal KATLYN with catheter- 100% pain relief for 2 days, ongoing 40% pain relief PRIOR: Patient is a pleasant 77 years old female with past medical history of lumbar fusion (2020 Dr. Zheng) Co-flex device implant by Dr. Balbuena, arthritis, history of shingles with residual post herpetic neuralgia pain presents today for evaluation for potential spinal cord stimulator. She was referred to our office by Dr. Salguero at [facility] . Her pain is localized to the lower back with radiation to both legs. Pain is aggravated with prolonged standing and walking and relieved with rest or sitting down. Reports occasional and intermittent stabbing and burning pain in the projections of left T9-T10 dermatomes. Back pain is constant and rated at 6/10 on average after taking her medications for pain. She also uses marijuana which she grows at home. Pain affects her daily activities, functioning, mobility and social activities. Denies any fever, weight loss, abdominal or groin pain, weakness, foot drop, bladder or bowel dysfunction or saddle anesthesia. Location Lower back radiates to upper thighs Duration Chronic pain for many years, worse after last back surgery. PHN >15 years Characteristics of symptom or complaint Stabbing, burning, aching, sharp, crushing, wrenching, tight, radiating Aggravating or associated factors Standing, walking, changing positions, cold weather changes, stress Relieving factors Oxycodone, Tylenol, sitting down, lidocaine patches, gabapentin, Flexeril Treatment Injections, PT- completed 2 weeks, massage therapy [facility] Medical History (Updated 01/27/24 @ 09:19 by Abdias Cedeno MD) Elevated cholesterol Hypertension Arthritis Postlaminectomy syndrome, not elsewhere classified Postherpetic polyneuropathy Radiculopathy, lumbar region Surgical History (Updated 06/11/23 @ 09:46 by Arianne Mckeon RN) H/O lumpectomy History of surgery History of back surgery Social History Alcohol intake: current Alcohol intake frequency: a few times a week Patient Tobacco Use Status: Former Tobacco user Tobacco use type: Cigarette Years Smoked: 30 Second Hand Smoke Exposure: No Substance Use Type: Marijuana Review of Systems Const All systems reviewed & are unremarkable except as noted in HPI and below Physical Exam Vital Signs: Last Vital Signs Pulse 71 01/27/24 08:50 BP 159/73 H 01/27/24 08:50 Pulse Ox 98 01/27/24 08:50 Oxygen Delivery Method Room Air 01/27/24 08:50 BMI result Body Mass Index 28.9 General: Appears afebrile. Alert and oriented. Mood and affect appropriate. Follows and participates in conversation appropriately. Respiratory effort is unlabored. No cough. Able to transition from sit to stand unassisted. Uses cane with ambulation. Ambulates with bilaterally normal heel strike and toe off. Chest Other: Mild TTP and allodynia in the projection of left T9-T10 dermatomes Chest palpation & inspection: normal inspection of the chest, no localized rib tenderness, tenderness no rib xxx, no clavicular xxx, no sternal xxx and no sternoclavicular joint xxx and No rash Back/Spine/Pelvis Other: Limited lumbar ROM due to pain, worse pain with extension. Can flex forward to 65-75 degrees and extend to 5-10 degrees before experiencing lumbar pain. Demonstrates 5/5 strength of quadriceps bilaterally as well as flexion/dorsiflexion of bilateral feet against resistance. 2+ pedal pulses bilaterally. Seated straight leg rise with dorsiflexion negative bilaterally. Diminished patellar and achilles reflexes bilaterally. Facet loading test positive bilaterally. Matt sign, Yg?s, Pelvic compression and Stinchfield tests are negative bilaterally. No groin pain with I/E hip rotations. Valsalva maneuver negative. Cervical Spine: cervical ROM normal and No Cervical spine tenderness Thoracic/Lumbar Spine: thoracic and lumbar spine normal to inspection, Thoracic/lumbar spine scar(s), Lasegue's sign negative, straight leg raise negative bilaterally, pain with thoraco-lumbar ROM, paraspinal muscle tenderness, thoraco-lumbar ROM limited, No thoracic spinal tenderness and lumbar spinal tenderness at L4 and at L5 Pelvis: no buttock tenderness Sacroiliac joints: bilaterally nontender Extrem Other: Lateral and medial rotation of the right thigh severe discomfort in the right groin. Assessment & Plan Assessment & Plan (1) Osteoarthritis of right hip: Code(s): M16.11 - Unilateral primary osteoarthritis, right hip Category: Medical (2) Right hip pain: Code(s): M25.551 - Pain in right hip Category: Medical (3) Lumbar degenerative disc disease: Code(s): M51.36 - Other intervertebral disc degeneration, lumbar region Category: Medical (4) Radiculopathy, lumbar region: Code(s): M54.16 - Radiculopathy, lumbar region Category: Medical (5) Postlaminectomy syndrome, not elsewhere classified: Code(s): M96.1 - Postlaminectomy syndrome, not elsewhere classified Category: Medical (6) Chronic low back pain: Code(s): M54.50 - Low back pain, unspecified; G89.29 - Other chronic pain Category: Medical Plan Status post Nevro SCS implant as above. The implant was performed in April of 2023. Now patient is in my office complaining on pain in the right hip joint. I will schedule her for right hip steroid injection. I will schedule her for x-ray of the right hip with x-ray of the pelvis. It could be difficult evaluation because of the presence of the Nevro battery on the right. Meanwhile while waiting for the procedure I will recommend her to start taking ibuprofen for next 10 days on the clock 200 mg every 6 hours not p.r.n.. I will see her after the procedure. Orders: Orders XR hip RT w PEL1V Today M16.11 - Unilateral primary osteoarthritis, right hip, M25.551 - Pain in right hip Patient Instructions: I here by testify that I spent 32 minutes in conversation with this patient as well as planning her care and organizing this note. Coding Level of Care Code Est Pt Level 4 (17657) Diagnoses Osteoarthritis of right hip M16.11 Right hip pain M25.551 Lumbar degenerative disc disease M51.36 Radiculopathy, lumbar region M54.16 Postlaminectomy syndrome, not elsewhere classified M96.1 Chronic low back pain M54.50; G89.29
[2024-01-27 08:50] VITALS: BP 159/73; PULSE 71; O2SAT 98; BMI 28.9
== END 2024-01-27 09:19 | disposition home or self-care (01) ==
PROVIDERS: PCP Physician Assistant Medical; Visit Provider Anesthesiology
DX: M16.11 Unilateral primary osteoarthritis, right hip (principal); M25.551 Pain in right hip; M51.369 Other intervertebral disc degeneration, lumbar region without mention of lumbar back pain or lower extremity pain; M54.16 Radiculopathy, lumbar region; M96.1 Postlaminectomy syndrome, not elsewhere classified; M54.50 Low back pain, unspecified; G89.29 Other chronic pain
CPT/HCPCS: 99214

== ENCOUNTER 2024-01-27 08:41 | Outpatient (REF) | payer MEDICARE, OTHER, SELFPAY ==
--- NOTE | ~2024-01-27 | XR_ITS ---
EXAMINATION: XR RIGHT HIP CLINICAL INFORMATION: Unilateral primary osteoarthritis, right hip M16.11. COMPARISON: None available. TECHNIQUE: Two views of the right hip. FINDINGS: Bones and soft tissues are normal. No fracture. Alignment is anatomic. Mild right hip degenerative changes. XR/XR hip RT w PEL1V IMPRESSION: Mild right hip degenerative changes. Electronically signed by: Maldonado Kate MD 02/15/2024 01:24 PM EST
== END 2024-01-27 08:42 | disposition home or self-care (01) ==
LOC: HO.XRAY 08:41
PROVIDERS: PCP Physician Assistant Medical; Visit Provider Anesthesiology
DX: M16.11 Unilateral primary osteoarthritis, right hip (principal); M25.551 Pain in right hip; M51.360 Other intervertebral disc degeneration, lumbar region with discogenic back pain only; M54.16 Radiculopathy, lumbar region; M96.1 Postlaminectomy syndrome, not elsewhere classified; M54.50 Low back pain, unspecified; G89.29 Other chronic pain
CPT/HCPCS: 73502; 99212

== ENCOUNTER 2024-06-29 09:48 | Outpatient (AMB) | payer MEDICARE, OTHER, SELFPAY ==
--- NOTE | 2024-06-29 09:52 | A.OFFVIS_ITS ---
Vital Signs 3 06/29/24 09:54 Height 5 ft 2 in Weight 170 lb BMI 31.1 BP 182/75 H Blood Pressure Location Lt brachial Position Sitting Respiration 16 Pulse 78 Pulse Source Pulse Oximeter Pulse Oximetry (%) 98 Oxygen Delivery Method Room Air Intake Visit Reasons: SCS implant not helping/FATOUMATA 01/27/24 Records Officer Required: No Allergies No Known Allergies Allergy (Verified 06/29/24 09:55) Medication List - Last Reconciled 06/29/24 by Yulia Alcocer LPN amlodipine 5 mg PO DAILY atorvastatin 40 mg PO BEDTIME bupropion HCl XL 300 mg PO QAM celecoxib (Celebrex) 200 mg PO DAILY famotidine 40 mg PO DAILY hydrochlorothiazide 25 mg PO DAILY lidocaine 5% 1 patch topical DAILY losartan 50 mg PO DAILY mirabegron ER (Myrbetriq) 50 mg PO DAILY [Tylenol 2 tabs PO DAILY PRN] HPI Comments Details: Lesa is here today with complains on pain in the right hip area. She complains on pain in the right hip and in the right groin. on the x-ray there are mild right hip degenerative changes. Physical exam is as below. Last time she was offered hip steroid injection and she did not want to go for the procedure. She insisted on the procedure to be performed under deep sedation. I agreed to perform this procedure under deep sedation. The battery of Nevro SCS is implanted on the right and could be an obstacle to perform the images as well as to perform the injection. status post Nevro SCS implant on 05/11/2023. She reports that Nevro SCS does not help her pain in the right hip. Past Procedures: 05/14/23: Lumbar SCS Trial-85% pain relief 03/02/23: Caudal KATLYN with catheter- 100% pain relief for 2 days, ongoing 40% pain relief PRIOR: Patient is a pleasant 77 years old female with past medical history of lumbar fusion (2020 Dr. Zheng) Co-flex device implant by Dr. Balbuena, arthritis, history of shingles with residual post herpetic neuralgia pain presents today for evaluation for potential spinal cord stimulator. She was referred to our office by Dr. Salguero at [facility]. Her pain is localized to the lower back with radiation to both legs. Pain is aggravated with prolonged standing and walking and relieved with rest or sitting down. Reports occasional and intermittent stabbing and burning pain in the projections of left T9-T10 dermatomes. Back pain is constant and rated at 6/10 on average after taking her medications for pain. She also uses marijuana which she grows at home. Pain affects her daily activities, functioning, mobility and social activities. Denies any fever, weight loss, abdominal or groin pain, weakness, foot drop, bladder or bowel dysfunction or saddle anesthesia. Location Lower back radiates to upper thighs Duration Chronic pain for many years, worse after last back surgery. PHN >15 years Characteristics of symptom or complaint Stabbing, burning, aching, sharp, crushing, wrenching, tight, radiating Aggravating or associated factors Standing, walking, changing positions, cold weather changes, stress Relieving factors Oxycodone, Tylenol, sitting down, lidocaine patches, gabapentin, Flexeril Treatment Injections, PT- completed 2 weeks, massage therapy [facility] Medical History (Updated 01/27/24 @ 09:19 by Abdias Cedeno MD) Elevated cholesterol Hypertension Arthritis Postlaminectomy syndrome, not elsewhere classified Postherpetic polyneuropathy Radiculopathy, lumbar region Surgical History (Updated 06/11/23 @ 09:46 by Arianne Mckeon RN) H/O lumpectomy History of surgery History of back surgery Social History Alcohol intake: current Alcohol intake frequency: a few times a week Patient Tobacco Use Status: Former Tobacco user Tobacco use type: Cigarette Years Smoked: 30 Second Hand Smoke Exposure: No Substance Use Type: Marijuana Review of Systems Const All systems reviewed & are unremarkable except as noted in HPI and below Physical Exam Vital Signs: Last Vital Signs Pulse 78 06/29/24 09:54 Resp 16 06/29/24 09:54 BP 182/75 H 06/29/24 09:54 Pulse Ox 98 06/29/24 09:54 Oxygen Delivery Method Room Air 06/29/24 09:54 BMI result Body Mass Index 31.1 General: Appears afebrile. Alert and oriented. Mood and affect appropriate. Follows and participates in conversation appropriately. Respiratory effort is unlabored. No cough. Able to transition from sit to stand unassisted. Uses cane with ambulation. Ambulates with bilaterally normal heel strike and toe off. Chest Other: Mild TTP and allodynia in the projection of left T9-T10 dermatomes Chest palpation & inspection: normal inspection of the chest, no localized rib tenderness, tenderness no rib xxx, no clavicular xxx, no sternal xxx and no sternoclavicular joint xxx and No rash Back/Spine/Pelvis Other: Limited lumbar ROM due to pain, worse pain with extension. Can flex forward to 65-75 degrees and extend to 5-10 degrees before experiencing lumbar pain. Demonstrates 5/5 strength of quadriceps bilaterally as well as flexion/dorsiflexion of bilateral feet against resistance. 2+ pedal pulses bilaterally. Seated straight leg rise with dorsiflexion negative bilaterally. Diminished patellar and achilles reflexes bilaterally. Facet loading test positive bilaterally. Matt sign, Yg?s, Pelvic compression and Stinchfield tests are negative bilaterally. No groin pain with I/E hip rotations. Valsalva maneuver negative. Cervical Spine: cervical ROM normal and No Cervical spine tenderness Thoracic/Lumbar Spine: thoracic and lumbar spine normal to inspection, Thoracic/lumbar spine scar(s), Lasegue's sign negative, straight leg raise negative bilaterally, pain with thoraco-lumbar ROM, paraspinal muscle tenderness, thoraco-lumbar ROM limited, No thoracic spinal tenderness and lumbar spinal tenderness at L4 and at L5 Pelvis: no buttock tenderness Sacroiliac joints: bilaterally nontender Extrem Other: Lateral and medial rotation of the right thigh severe discomfort in the right groin. Results Reviewed Results Reviewed: Assessment & Plan Assessment & Plan (1) Osteoarthritis of right hip: Code(s): M16.11 - Unilateral primary osteoarthritis, right hip Category: Medical (2) Right hip pain: Code(s): M25.551 - Pain in right hip Category: Medical (3) Lumbar degenerative disc disease: Code(s): M51.36 - Other intervertebral disc degeneration, lumbar region Category: Medical (4) Radiculopathy, lumbar region: Code(s): M54.16 - Radiculopathy, lumbar region Category: Medical (5) Postlaminectomy syndrome, not elsewhere classified: Code(s): M96.1 - Postlaminectomy syndrome, not elsewhere classified Category: Medical (6) Chronic low back pain: Code(s): M54.50 - Low back pain, unspecified; G89.29 - Other chronic pain Category: Medical Plan Status post Nevro SCS implant April of 2023. Now patient is in my office complaining on pain in the right hip joint. I will schedule her for right hip steroid injection. This will be performed under deep sedation. Coding Level of Care Code Est Pt Level 3 (83026) Diagnoses Osteoarthritis of right hip M16.11 Right hip pain M25.551 Lumbar degenerative disc disease M51.36 Radiculopathy, lumbar region M54.16 Postlaminectomy syndrome, not elsewhere classified M96.1 Chronic low back pain M54.50; G89.29
[2024-06-29 09:54] VITALS: BP 182/75; PULSE 78; RESP 16; O2SAT 98; BMI 31.1
--- OUTSIDE RECORDS SUMMARY | 2024-06-29 10:38 | XMS_ITS | Clinical Summary ---
Author Organization [facility] Address [address] [place] [address] Care Team Providers Care Dining Service Inspector Name Role Phone Nahid Geiger MD Primary Care Provider [phone] Social History Tobacco Use Types Packs/Day Years Used Date Smoking Tobacco: Never Assessed Sex and Gender Information Value Date Recorded Sex Assigned at Not on file Gender Identity Not on file Sexual Orientation Not on file Plan of Treatment Health Maintenance Due Date Last Done Comments Hepatitis C Screening 1945 Depression Screening 1958 Preventative Health Evaluation 1964 Shingrix-Zoster Vaccine (1 of 2) 1996 Fall Risk Assessment 11/14/2011 Osteoporosis Screening (DEXA Scan) 11/14/2011 RSV Adult > 60+ Yrs or (1 - 1-dose 75+ series) 2021 COVID-19 Vaccine ( season) 2023 03/26/2020 Influenza Vaccine (#1) 2023 0, 10/11/2018, 11/03/2017, Additional history exists DTap / Tdap / Td (3 - Td or Tdap) 05/26/2027 05/25/2017, 12/28/2007 Pneumococcal Vaccine Completed 12/19/2015, 12/07/19 15 Hepatitis B Vaccines Aged Out No long er eligible based on patient's age to complete this topic RSV Ped < 20 months Aged Out No longe r eligible based on patient's age to complete this topic Care Teams Dining Service Inspector Relationship Specialty Start Date End Date Nahid Geiger MD [address] [phone] PCP - General Internal Medicine 09/19/19
--- OUTSIDE RECORDS SUMMARY | 2024-06-29 10:38 | XMS_ITS | Clinical Summary ---
Author Organization [facility] Address [address] [place] [phone] Phone Care Team Providers Care Investigator Narcotics Name Role Phone America Hall Primary Care Provider [phone] Allergies Active Allergy Reactions Criticality Noted Date Comments Pollen Extract 02/26/2023 Other reaction(s): sneezing Medications ACETAMINOPHEN-D M PO Take by mouth Active atorvastatin (LIPITOR) 40 MG tablet Take 40 mg by mouth 1 (one) time each day Active Biotin 1 MG capsule Take by mouth Active buPROPion XL (WELLBUTRIN XL) 300 MG 24 hr tablet Take 300 mg by mouth 1 (one) time each day Do not crush, chew, or split. Active fluticasone (FLONASE) 50 MCG/ACT nasal spray Administer 1 spray into each nostril 1 (one) time each day Active hydroCHLOROthia zide 25 MG tablet Take 25 mg by mouth 1 (one) time each day Active Mirabegron ER (Myrbetriq) 50 MG tablet sustained-relea se 24 hour Take 50 mg by mouth 1 (one) time each day Active oxyCODONE (ROXICODONE) 5 MG immediate release tablet Take 5 mg by mouth 3 (three) times a day if needed 3 Active famotidine (PEPCID) 20 MG tablet TAKE 1 TABLET (20 MG TOTAL) BY MOUTH ONE TIME EACH DAY 90 tablet 11 4 Active Additional Information Patient taking differently: 40 mgOral Daily, Reported on 04/25/2024 amLODIPine (NORVASC) 10 MG tablet Take 10 mg by mouth 1 (one) time each day Active gabapentin (NEURONTIN) 300 MG capsule Take 300 mg by mouth 1 (one) time each day 5 Active losartan (COZAAR) 50 MG tablet Take 50 mg by mouth 1 (one) time each day 4 Active exemestane (AROMASIN) 25 MG chemo tablet Take 25 mg by mouth 1 (one) time each day 4 Active Methylcobalamin (O49-KGKONQ PO) Take by mouth Active VITAMIN D PO Take by mouth Act martine Calcium Carbonate Antacid (TUMS PO) Take by mouth Active Active Problems Problem Noted Date Diagnosed Date Chronic kidney disease, stage 2 (mild) 5 Acid reflux 02/26/2023 Arthritis 02/26/2023 Hyperlipidemia 02/26/2023 Hypertension 02/26/2023 Mild major depression 02/26/2023 Severe pediatric obstructive sleep apnea 024 Encounters Date Type Department Care Team Description 05/26/2024 Telephone [facility] [id number] [phone] Stephani Lassiter ARNP 04/25/2024 12:00 PM EST Office Visit [facility] [address] [phone] Stephani Lassiter ARNP Chronic kidney disease, stage 2 (mild) (Primary Dx); Hypertension from Last 3 Months Family History Medical History Relation Comments Deep vein thrombosis Brother Hyperlipidemia Father Hypertension Father Stroke Father Breast cancer Maternal Grandmother Endometriosis Other Cervical cancer Paternal Grandmother Relation Status Comments Brother Father Maternal Grandmother Other Alive Paternal Grandmother Social History Tobacco Use Types Packs/Day Years Used Date Smoking Tobacco: Unknown Comments Unknown Sex and Gender Information Value Date Recorded Sex Assigned at Not on file Legal Sex Female 9:37 AM EDT Gender Identity Not on file Sexual Orientation Not on file Last Filed Vital Signs Vital Sign Reading Time Taken Comments Blood Pressure 120/50 04/25/2024 12:29 PM EST Pulse 75 04/25/2024 11:59 AM EST Temperature - - Respiratory Rate - - Oxygen Saturation 98% 04/25/2024 11:59 AM EST Inhaled Oxygen Concentration - - Weight 77.6 kg (171 lb) 04/25/2024 11:59 AM EST Height - - Body Mass Index - - Plan of Treatment Upcoming Encounters Date Type Department Care Team (Late st Contact Info) Description 04/24/2025 1:00 PM EST Office Visit [facility] [address] [facility] [address] [place] [phone] Rikki Malagon MD [address] [phone] Health Maintenance Due Date Last Done Comments Pneumococcal Vaccine: 50+ Years Completed 12/19/2015, 12/06/2014 Pneumococcal Vaccine: Peds (0 to 5 Years) and At-Risk Patients (6 to 49 Years) Discontinued 12/19/2015, 12/06/2014 Influenza Vaccine Completed 10/21/2023, , 10/11/2018, Additional history exists Hepatitis B Vaccine Aged Out No longe r eligible based on patient's age to complete this topic Procedures Procedure Name Priority Date/Time Associated Diagnosis Comments VITAMIN D 25 HYDROXY Routine 04/26/2024 12:13 PM EST Chronic kidney disease, stage 2 (mild) Hypertension CBC Routine 04/26/2024 12:13 PM EST Chronic kidney disease, stage 2 (mild) Hypertension RENAL FUNCTION PANEL Routine 04/26/2024 12:13 PM EST Chronic kidney disease, stage 2 (mild) Hypertension PTH, INTACT Routine 04/26/2024 12:13 PM EST Chronic kidney disease, stage 2 (mild) Hypertension from Last 3 Months Results * Vitamin D 25 hydroxy (04/26/2024 12:13 PM EST) Vitamin D, 25-OH, Total 47.4 30.0 - 100.0 ng/mL [facility] Comment: Vitamin D deficiency has been defined by the [place] of Medicine and an Endocrine Society practice guideline as a level of serum 25-OH vitamin D less than 20 ng/mL (1,2). The Endocrine Society went on to further define vitamin D insufficiency as a level between 21 and 29 ng/mL (2). 1. IOM ([place] of Medicine). 2010. Dietary reference ?? intakes for calcium and D. [place]: The ?? National Academies Press. 2. Bob MF, Dora NC, Jammie ROONEY, et al. ?? Evaluation, treatment, and prevention of vitamin D ?? deficiency: an Endocrine Society clinical practice ?? guideline. JCEM. 2010; 96(7):1911-30. Blood (Blood, Venous) 04/26/2024 12:13 PM EST 04/26/2024 Stephani OKEEFE LAB BLOOD ORDERABLES Final Result [facility] [address] [place] [address] * CBC (04/26/2024 12:13 PM EST) WBC 9.9 3.4 - 10.8 x10E3/uL [facility] RBC 4.39 3.77 - 5.28 x10E6/uL [facility] Hemoglobin 13.1 11.1 - 15.9 g/dL [facility] Hematocrit 39.7 34.0 - 46.6 % [facility] MCV 90 79 - 97 fL [facility] MCH 29.8 26.6 - 33.0 pg [facility] MCHC 33.0 31.5 - 35.7 g/dL [facility] RDW 13.4 11.7 - 15.4 % [facility] Platelets 352 150 - 450 x10E3/uL [facility] Blood (Blood, Venous) 04/26/2024 12:13 PM EST 04/26/[address] [facility] LAB BLOOD ORDERABLES Final Result [facility] [address] [place] [address] * PTH, intact (04/26/2024 12:13 PM EST) PTH 58 15 - 65 pg/mL [facility] Blood (Blood, Venous) 04/26/2024 12:13 PM EST 04/26/2024 Stephani [facility] LAB BLOOD ORDERABLES Final Result Performing Organization Address City/[facility]/ZIP Co de Phone Number [facility] [place] [address] [place] [phone] * (ABNORMAL) Renal function panel (04/26/2024 12:13 PM EST) Glucose 96 70 - 99 mg/dL [facility] BUN 22 8 - 27 mg/dL [facility] Creatinine 1.19(H) 0.57 - 1.00 mg/dL [facility] eGFR CKD-EPI CR 2020 47(L) >59 mL/min/1.7 3 [facility] BUN/Creatinine Ratio 18 12 - 28 [facility] Sodium 137 134 - 144 mmol/L [facility] Potassium 4.4 3.5 - 5.2 mmol/L [facility] Chloride 100 96 - 106 mmol/L [facility] Bicarbonate (CO2) 21 20 - 29 mmol/L [facility] Calcium 9.2 8.7 - 10.3 mg/dL [facility] Phosphorus 3.5 3.0 - 4.3 mg/dL [facility] Albumin 4.6 3.8 - 4.8 g/dL [facility] Blood (Blood, Venous) 04/26/2024 12:13 PM EST 04/26/2024 Stephani Maikol [facility] LAB BLOOD ORDERABLES Final Result [facility] [address] [place] [phone] from Last 3 Months Insurance Medicare Medicare [facility] Medicare [facility] Care Teams Investigator Narcotics Relationship Specialty Start Date End Date America Hall PA [address] PCP - General Physician Lump Receiver 04/25/24
--- OUTSIDE RECORDS SUMMARY | 2024-06-29 10:39 | XMS_ITS | Data Portability ---
Author Organization [facility], Main Office Address [address] [facility] [address] [place] [address] Care Team Providers Care Field Marketing Specialist Name Role Phone LUISA MCARTHUR Orthopedic Surgeon ELADIA FERRARI Urologist DUSTIN JOHN Tread Cutter OSMIN QUIROZ Physical Therapy Attendant CLARIBEL QUIJANO Manager Metal IBRAHIMA REGALADO [facility] BRYANT BEAUCHAMP Primary Care Provider SOPHIE NICOLAS Neurosurgeon MANOJ ANDERSON Referring Provider [phone] Assessment Encounter Date Assessment Date Assessment LastModified by Organization Details LastModified Time 10/18/2023 10/18/2023 Discussed with patient the signs/symptoms warranted for a return to office visit and/or an ER visit. Patient understood and agreed with the plan. Not available 10/18/2023 10:27:22 12/02/2023 12/02/2023 This diabetes screening test suggests prediabetes. We should recheck this in 6-12 months. In the meantime regular exercise, lower carbohydrate intake and weight loss are the best way to limit the risk of progression. Not available 12/02/2023 15:22:16 Plan of Treatment Reminders Order Date Submit Date Provider Last Modified By Organization Details Last Modified Time Details Appointments FOLLOW UP 2024 10:30A [place] Beauchamp PA-C Not available Not available Not available Lab HbA1c (hemoglob in A1c), blood 2024 GABY [facility] (Centralized Electronic Ordering - All Locations), Patient Can Go To The Location Of Their Choice, 04/27/2024 06:08:49 TSH, ultra-sen sitive, serum 2024 GABY [facility] (Centralized Electronic Ordering - All Locations), Patient Can Go To The Location Of Their Choice, 04/27/2024 06:08:49 microalbu min/creat inine, mass ratio, urine 2024 GABY [facility] (Centralized Electronic Ordering - All Locations), Patient Can Go To The Location Of Their Choice, 04/29/2024 12:06:34 CMP, serum or plasma 2024 GABY [facility] (Centralized Electronic Ordering - All Locations), Patient Can Go To The Location Of Their Choice, 04/27/2024 06:08:48 lipid panel, serum 2024 GABY [facility] (Centralized Electronic Ordering - All Locations), Patient Can Go To The Location Of Their Choice, 04/27/2024 06:08:48 lipid panel, serum 2023 GABY [facility] (Centralized Electronic Ordering - All Locations), Patient Can Go To The Location Of Their Choice, 12/28/2023 14:35:37 CMP, serum or plasma 2023 GABY [facility] (Centralized Electronic Ordering - All Locations), Patient Can Go To The Location Of Their Choice, 12/28/2023 14:35:36 HbA1c (hemoglob in A1c), blood 2023 GABY [facility] (Centralized Electronic Ordering - All Locations), Patient Can Go To The Location Of Their Choice, 12/28/2023 14:35:36 urinalysi s complete, reflex culture 2023 GABY [facility] (Centralized Electronic Ordering - All Locations), Patient Can Go To The Location Of Their Choice, 10/23/2023 12:06:15 urinalysi s, dipstick 2023 024 GABY [facility] (Centralized Electronic Ordering - All Locations), Patient Can Go To The Location Of Their Choice, [address] 10/23/2023 12:06:14 Referral hand surgeon referral 2023 024 vikram Meraz MD, [address] [place] [address] Dimitri Garcia, [place], [address], 02/04/2024 09:18:24 physical therapist referral - At risk for falling 2023 024 [facility], [address], [place], [address], 12/28/2023 14:39:46 Procedures None recorded. Surgeries None recorded. Imaging None recorded. Medication Orders Celebrex 200 mg capsule [address] [facility]acy #[id number], [address] [place] [address], [id number], 06/06/2024 09:31:32 albuterol sulfate HFA 90 mcg/actua tion aerosol inhaler 2023 024 [id number] [address] [place] [address], [address], 12/02/2023 15:23:23 gabapenti n 300 mg capsule 2023 024 [id number] [address] [place] [address], [address], 10/18/2023 10:33:11 Flonase Sensimist 27.5 mcg/actua tion nasal spray,izabella pension [address] [facility] #[id number], [address] [place] [address], [address], 12/28/2023 13:29:57 Patient TargetsNo targets recorded. Patient Instructions Encounter Date Encounter Id Patient Instructions Last Modified By Organization Details Last Modified Time 10/18/2023 [id number] painful urinatio n (dysuria): care instructions Not available 10/18/2023 10:33:11 12/28/2023 [id number] Dupuytren's Dise ase: Care Instructions Not available 12/28/2023 14:35:25 gastroesophageal reflux disease (GERD): care instructions srenzullo Not available 12/28/2023 14:20:18 preventing falls : care instructions srenzullo Not available 12/28/2023 14:20:18 well visit, over 65: care instructions srenzullo Not available 12/28/2023 14:20:18 high cholesterol : care instructions srenzullo Not available 12/28/2023 14:20:17 Urge Incontinenc e: Care Instructions srenzullo Not available 12/28/2023 14:20:18 prediabetes: car e instructions srenzullo Not available 12/28/2023 14:20:17 hearing loss: ca re instructions srenzullo Not available 12/28/2023 14:20:18 lumbar spinal stenosis: care instructions srenzullo Not available 12/28/2023 14:20:18 sleep apnea: car e instructions srenzullo Not available 12/28/2023 14:20:18 medicines to jacob id with kidney disease: care instructions srenzullo Not available 12/28/2023 14:20:17 learning about healthy weight srenzullo Not available 12/28/2023 14:20:18 04/26/2024 [id number] prediabetes: car e instructions Not available 04/26/2024 11:58:52 dash diet: care instructions Not available 04/26/2024 12:51:39 medicines to jacob id with kidney disease: care instructions Not available 04/26/2024 11:55:26 high cholesterol : care instructions Not available 04/26/2024 11:57:55 06/06/2024 [id number] rotator cuff problems: care instructions Not available 06/06/2024 09:31:46 Reason for Referral Physical Therapist Referral for Adult health examination At risk for falling Referring Physician: Bryant Beauchamp, Internal Medicine, Encounter Date: 12/28/2023 Hand Surgeon Referral for Du puytren's disease of palm Referring Physician: Bryant Beauchamp, Internal Medicine, Encounter Date: 12/28/2023 Results Created Date Observation Date Name Description Value Unit Range Abnormal Flag Note LastModifiedBy Organization Detail LastModifiedTime 10/19/19 24 10/20/2023 URINA LYSIS , ROUTI NE specific gravity 1.012 1.005- 1.030 normal Not Available [facility] ([facility]) [address] [place], [address], 10/23/2023 12:06:14 10/19/1910/20/2023 URINA LYSIS , ROUTI NE pH 5.5 5.0-7. 5 normal Not Available [facility] ([facility]) [address] [place], [address], 10/23/2023 12:06:14 10/19/19 24 10/20/2023 URINA LYSIS , ROUTI NE urine-color Yellow yellow Not Available [facility] ([facility]) [address] [place], [address], 10/23/2023 12:06:14 10/19/19 24 10/20/2023 URINA LYSIS , ROUTI NE appearance Cloudy clear abnormal Not Available [facility] ([facility]) [address] [place], [address], 10/23/2023 12:06:14 10/19/19 24 10/20/2023 URINA LYSIS , ROUTI NE WBC esterase 3+ negati ve abnormal Not Available [facility] ([facility]) [address] [place], [address], 10/23/2023 12:06:14 10/19/19 24 10/20/2023 URINA LYSIS , ROUTI NE protein Negati ve negati ve/tra ce Not Available [facility] ([facility]) [address] [place], [address], 10/23/2023 12:06:14 10/19/19 24 10/20/2023 URINA LYSIS , ROUTI NE glucose Negati ve negati ve Not Available [facility] ([facility]) [address] [facility], [place], [address], 10/23/2023 12:06:14 10/19/19 24 10/20/2023 URINA LYSIS , ROUTI NE ketones Negati ve negati ve Not Available [facility] ([facility]) [address] [place], [address], 10/23/2023 12:06:14 10/19/19 24 10/20/2023 URINA LYSIS , ROUTI NE occult blood Trace negati ve abnormal Not Available [facility] ([facility]) [address] [place], [address], 10/23/2023 12:06:14 10/19/19 24 10/20/2023 URINA LYSIS , ROUTI NE bilirubin Negati ve negati ve Not Available [facility] ([facility]) [address] [place], [address], 10/23/2023 12:06:14 10/19/19 24 10/20/2023 URINA LYSIS , ROUTI NE urobilinogen ,semi-qn 0.2 mg/dL 0.2-1. 0 normal Not Available [facility] ([facility]) [address] [place], [address], 10/23/2023 12:06:14 10/19/19 24 10/20/2023 URINA LYSIS , ROUTI NE nitrite, urine Positi ve negati ve abnormal Not Available [facility] ([facility]) [address] [place], [address], 10/23/2023 12:06:14 10/19/19 24 10/20/2023 URINA LYSIS , ROUTI NE microscopic examination See below: Micro scopi c was indic ated and was perfo rmed. Not Available [facility] ([facility]) [address] [facility], [place], [address], 10/23/2023 12:06:14 10/19/19 24 10/20/2023 URINA LYSIS , ROUTI NE WBC >30 /hpf 0 - 5 abnormal Not Available [facility] ([facility]) [address] [facility], [place], [address], 10/23/2023 12:06:14 10/19/19 24 10/20/2023 URINA LYSIS , ROUTI NE RBC None seen /hpf 0 - 2 Not Available [facility] ([facility]) [address] [facility], [place], [address], 10/23/2023 12:06:14 10/19/19 24 10/20/2023 URINA LYSIS , ROUTI NE epithelial cells (non renal) 0-10 /hpf 0 - 10 Not Available [facility] ([facility]) [address] [facility], [place], [address], 10/23/2023 12:06:14 10/19/19 24 10/20/2023 URINA LYSIS , ROUTI NE epithelial cells (renal) SUPERVISOR COREMAKER Not Available [facility] ([facility]) [address] [facility], [place], [address], 10/23/2023 12:06:14 10/19/19 24 10/20/2023 URINA LYSIS , ROUTI NE casts None seen /lpf none seen Not Available [facility] ([facility]) [address] [facility], [place], [address], 10/23/2023 12:06:14 10/19/19 24 10/20/2023 URINA LYSIS , ROUTI NE cast type SUPERVISOR COREMAKER Not Available [facility] ([facility]) [address] [facility], [place], [address], 10/23/2023 12:06:14 10/19/19 24 10/20/2023 URINA LYSIS , ROUTI NE crystals SUPERVISOR COREMAKER Not Available [facility] ([facility]) [address] [facility], [place], [address], 10/23/2023 12:06:14 10/19/19 24 10/20/2023 URINA LYSIS , ROUTI NE crystal type SUPERVISOR COREMAKER Not Available [facility] ([facility]) [address] [facility], [place], [address], 10/23/2023 12:06:14 10/19/19 24 10/20/2023 URINA LYSIS , ROUTI NE mucus threads SUPERVISOR COREMAKER Not Available [facility] ([facility]) [address] [facility], [place], [address], 10/23/2023 12:06:14 10/19/19 24 10/20/2023 URINA LYSIS , ROUTI NE bacteria Many none seen/f ew abnormal Not Available [facility] ([facility]) [address] [facility], [place], [address], 10/23/2023 12:06:14 10/19/19 24 10/20/2023 URINA LYSIS , ROUTI NE yeast SUPERVISOR COREMAKER Not Available [facility] ([facility]) [address] [facility], [place], [address], 10/23/2023 12:06:14 10/19/19 24 10/20/2023 URINA LYSIS , ROUTI NE trichomonas SUPERVISOR COREMAKER Not Available [facility] ([facility]) [address] [facility], [place], [address], 10/23/2023 12:06:14 10/19/19 24 10/20/2023 URINA LYSIS , ROUTI NE comment SUPERVISOR COREMAKER Not Available [facility] ([facility]) [address] [facility], [place], [address], 10/23/2023 12:06:14 10/19/19 24 10/20/2023 UA/M W/RFL X CULTU RE, ROUTI NE microscopic examination SUPERVISOR COREMAKER Not Available [facility]) [address] [facility], [place], [address], 10/23/2023 12:06:15 10/19/19 24 10/20/2023 UA/M W/RFL X CULTU RE, ROUTI NE urinalysis reflex Commen t This speci men has refle xed to a Urine Cultu re. Not Available [facility] ([facility]) [address] [facility], [place], [address], 10/23/2023 12:06:15 10/19/19 24 10/23/2023 UA/M W/RFL X CULTU RE, ROUTI NE urine culture, routine Final report abnormal Not Available [facility] ([facility]) [address] [facility], [place], [address], 10/23/2023 12:06:15 10/19/19 24 10/23/2023 UA/M W/RFL X CULTU RE, ROUTI NE result 1 Escher ichia coli abnormal Great er than 100,0 00 colon y formi ng units per mL Cefaz maciel <=4 ug/mL Cefaz amciel with an MADHU <=16 predi cts susce ptibi lity to the oral agent s cefac cassius, cefdi gabo, cefpo doxim e, cefpr ozil, cefur oxime , cepha lexin , and lorac arbef when used for thera py of uncom plica carin urina ry tract infec tions due to E. coli, Klebs iella pneum oniae , and Prote us mirab ilis. This speci men was submi tted in a steri le cup which requi res refri gerat ed tempe ratur es to maint ain the organ isms witho ut exces sive growt h in trans port. [facility] recom mends the use of the urine cultu re trans port devic e (avai lable from your profe janine al servi eden repre senta tive) for clean catch urine speci mens. Not Available [facility] ([facility]) [address] [place], [address], 10/23/2023 12:06:15 10/19/19 24 10/23/2023 UA/M W/RFL X CULTU RE, ROUTI NE antimicrobia l susceptibili ty Commen t S = Susce ptibl e; I = Inter media te; R = Resis tant P = Posit martine; N = Negat martine MICS are expre ssed in micro grams per mL Antib iotic RSLT# 1 RSLT# 2 RSLT# 3 RSLT# 4 Amoxi cilli n/Cla vulan ic Acid S Ampic illin S Cefep felix S Ceftr iaxon e S Cefur oxime S Cipro floxa la S Ertap enem S Genta micin S Imipe nem S Levof loxac in S Merop enem S Nitro furan toin S Piper acill in/Ta zobac sloan S Tetra cycli ne S Tobra mycin S Trime thopr im/Stratton lfa S Not Available [facility] ([facility]) [address] [place], [address], 10/23/2023 12:06:15 04/27/19 25 04/26/2024 COMP. METAB OLIC PANEL (14) glucose 99 mg/dL 70-99 normal Not Available [facility] ([facility]) [address] [place], [address], 04/27/2024 06:08:48 04/27/19 25 04/26/2024 COMP. METAB OLIC PANEL (14) BUN 22 mg/dL 8-27 normal Not Available [facility] ([facility]) [address] [place], [address], 04/27/2024 06:08:48 04/27/19 25 04/26/2024 COMP. METAB OLIC PANEL (14) creatinine 1.16 mg/dL 0.57-1 .00 above high normal Not Available [facility] ([facility]) [address] [place], [address], 04/27/2024 06:08:48 04/27/19 25 04/26/2024 COMP. METAB OLIC PANEL (14) eGFR 49 mL/mi n/1.7 3 >59 below low normal Not Available [facility] ([facility]) [address] [place], [address], 04/27/2024 06:08:48 04/27/19 25 04/26/2024 COMP. METAB OLIC PANEL (14) BUN/creatini ne ratio 19 12-28 normal Not Available [facility] ([facility]) [address] [place], [address], 04/27/2024 06:08:48 04/27/19 25 04/26/2024 COMP. METAB OLIC PANEL (14) sodium 137 mmol/ L 134-14 4 normal Not Available [facility] ([facility]) [address] [facility] [place], [address], 04/27/2024 06:08:48 04/27/19 25 04/26/2024 COMP. METAB OLIC PANEL (14) potassium 4.3 mmol/ L 3.5-5. 2 normal Not Available [facility] ([facility]) [address] [place], [address], 04/27/2024 06:08:48 04/27/19 25 04/26/2024 COMP. METAB OLIC PANEL (14) chloride 100 mmol/ L 96-106 normal Not Available [facility] ([facility]) [address] [place], [address], 04/27/2024 06:08:48 04/27/19 25 04/26/2024 COMP. METAB OLIC PANEL (14) carbon dioxide, total 21 mmol/ L 20-29 normal Not Available [facility] ([facility]) [address] [facility] [place], [address], 04/27/2024 06:08:48 04/27/19 25 04/26/2024 COMP. METAB OLIC PANEL (14) calcium 9.3 mg/dL 8.7-10 .3 normal Not Available [facility] ([facility]) [address] [place], [address], 04/27/2024 06:08:48 04/27/19 25 04/26/2024 COMP. METAB OLIC PANEL (14) protein, total 7.1 g/dL 6.0-8. 5 normal Not Available [facility] ([facility]) [address] [place], [address], 04/27/2024 06:08:48 04/27/19 25 04/26/2024 COMP. METAB OLIC PANEL (14) albumin 4.5 g/dL 3.8-4. 8 normal Not Available [facility] ([facility]) [address] [place], [address], 04/27/2024 06:08:48 04/27/19 25 04/26/2024 COMP. METAB OLIC PANEL (14) globulin, total 2.6 g/dL 1.5-4. 5 Not Available [facility] ([facility]) [address] [place], [address], 04/27/2024 06:08:48 04/27/19 25 04/26/2024 COMP. METAB OLIC PANEL (14) bilirubin, total 0.4 mg/dL 0.0-1. 2 normal Not Available [facility] ([facility]) [address] [place], [address], 04/27/2024 06:08:48 04/27/19 25 04/26/2024 COMP. METAB OLIC PANEL (14) alkaline phosphatase 81 IU/L 44-121 normal Not Available [facility]) [address] [place], [address], 04/27/2024 06:08:48 04/27/19 25 04/26/2024 COMP. METAB OLIC PANEL (14) AST (SGOT) 16 IU/L 0-40 normal Not Available [facility] ([facility]) [address] [place], [address], 04/27/2024 06:08:48 04/27/19 25 04/26/2024 COMP. METAB OLIC PANEL (14) ALT (SGPT) 14 IU/L 0-32 normal Not Available [facility] ([facility]) [address] [place], [address], 04/27/2024 06:08:48 04/27/19 25 04/26/2024 LIPID PANEL cholesterol, total 195 mg/dL 100-19 9 normal Not Available [facility] ([facility]) [address] [place], [address], 04/27/2024 06:08:48 04/27/19 25 04/26/2024 LIPID PANEL triglyceride s 104 mg/dL 0-149 normal Not Available [facility] ([facility]) [address] [place], [address], 04/27/2024 06:08:48 04/27/19 25 04/26/2024 LIPID PANEL HDL cholesterol 69 mg/dL >39 normal Not Available [facility]) [address] [place], [address], 04/27/2024 06:08:48 04/27/19 25 04/26/2024 LIPID PANEL VLDL cholesterol saurabh 18 mg/dL 5-40 Not Available [facility] ([facility]) [address] [place], [address], 04/27/2024 06:08:48 04/27/19 25 04/26/2024 LIPID PANEL LDL chol calc ([facility]) 108 mg/dL 0-99 above high normal Not Available [facility] ([facility]) [address] [place], [address], 04/27/2024 06:08:48 04/27/19 25 04/26/2024 LIPID PANEL LDL calc comment: SUPERVISOR COREMAKER Not Available [facility] ([facility]) [address] [facility], [place], [address], 04/27/2024 06:08:48 04/27/19 25 04/26/2024 HEMOG LOBIN A1C hemoglobin A1C 5.8 % 4.8-5. 6 above high normal Predi abete s: 5.7 - 6.4 Diabe saul: >6.4 Glyce madhu contr ol for adult s with diabe saul: <7.0 Not Available [facility] ([facility]) [address] [place], [address], 04/27/2024 06:08:49 04/27/19 25 04/26/2024 TSH TSH 1.640 uIU/m L 0.450- 4.500 normal Not Available [facility] ([facility]) [address] [place], [address], 04/27/2024 06:08:49 04/27/19 25 04/29/2024 ALBUM IN/CR EAT RATIO , RANDO M UR creatinine, urine 73.8 mg/dL not estab. normal Not Available [facility] ([facility]) [address] [place], [address], 04/29/2024 12:06:34 04/27/19 25 04/29/2024 ALBUM IN/CR EAT RATIO , RANDO M UR albumin, urine 8.5 ug/mL not estab. Not Available [facility] ([facility]) [address] [place], [address], 04/29/2024 12:06:34 04/27/19 25 04/29/2024 ALBUM IN/CR EAT RATIO , RANDO M UR alb/creat ratio 12 mg/g_ creat 0-29 Mayra l: 0 - 29 Moder ately incre ased: 30 - 300 Sever brea incre ased: >300 Not Available [facility] ([facility]) [address], [place], [address], 04/29/2024 12:06:34 12/24/19 24 12/24/2023 LDCT, chest , for lung arnol glasgow No observ ation record ed. [facility] [address] [facility], [place], [address], 12/24/2023 13:46:28 12/24/19 24 12/24/2023 CT chest ldct lung progr am CT Chest LDCT Lung Progra m Reason : Other: ; LDCT LUNG CANCER SCREEN ING PROGRA M, FORMER SMOKER , QUIT AT AGE 66, 50 PACK YEAR HX; Clinic al Quest[facility] on(s): Other: ; Specia l Instru ctions : BOOK AT [address], [place] BOOK AFTER [address] IN THE LAST 12 MONTHS NO LUNG CA OR SIGNS AND SYMPTO MS OF LUNG CA Visit type: Annual Screen ing TECHNI QUE: Low-do se helica l CT of the chest withou t IV contra st (Adult Lung Cancer Screen ing) protoc ol was perfor med. Soares l reform ats were obtain ed. Weight -based protoc ol using automa tic tube modula tion was used to optimi ze exposu re parame ters. CTDIvo l Body: 2.38 mGy, DLP Body: 86 mGy*cm . COMPAR MIGUEL: 2022 FINDIN GS: LUNG NODULE S (measu red on thin axial series 4): RIGHT lung: No new pulmon yohana nodule . Unchan ged granul jack at image 147 in the right upper lobe LEFT lung: No new pulmon yohana nodule . Unchan ged 3 mm nodule anteri or left upper lobe abutti ng the anteri or juncti on line. OTHER FINDIN GS: Data Recovery Planner view findin gs, lines and tubes: Stimul ator leads projec ting at the level of the mid thorac ic spine. Trache a and airway s: Patent withou t eviden ce of trache al or endobr onchia l lesion . Lungs and pleura : Clear lungs. No effusi on or pneumo thorax . Medias tinum and camille: No mass or hemato ma. No medias tinal or hilar lympha denopa thy. No esopha geal abnorm ality. Partia lly imaged thyroi d is unrema rkable . Heart: Heart is normal in size. No perica rdial effusi on. Modera te to severe soares ry artery calcif icatio n. Aorta: Mild vascul ar calcif icatio n but no aneury sm. Pulmon yohana arteri es: Normal calibe r. Chest wall soft tissue s: No axilla ry adenop athy. No acute abnorm ality. Diaphr agm: Intact . Upper abdome n: No acute abnorm ality. Vascul ar athero sclero sis. Bones: No acute abnorm ality. IMPRES SARAH: 1. LungRa d Catego ry: 2 Benign Appear ance or Behavi or. Nodule s with a very low likeli jose of becomi ng a clinic ally active cancer due to size or lack of growth . Contin ue annual screen ing with LDCT in 12 months . 2. No signif icant additi onal findin gs requir ing furthe r evalua tion. Lung-R AD Catego ry Modifi er: None. Catego rizati on based on Lung-R ADS 2021 criter ia. [email or web address]: [email or web address] R/File s/RADS /Lung- RADS/L inder-RA DS-[email or web address] 2.pdf WSN: [id number] 1 Orderi ng Physic stephie: Melvin Beauchamp ia Dictat ed By: Charline Mcleod MD Dictat ed Date/T felix: 11:40 a Review ed By: Charline Mcleod MD Signed By: Charline Mcleod MD Signed Date/T felix: 11:40 am Transc ribed By: ROBINSON Transc ribed Date/T felix: 11:35 am Patien t Class: [facility] [address] , [place], [address], 01/07/2024 11:54:18 11/04/20 24 12/24/2023 LDCT, chest , for lung martice r gonzalo glasgow No observ ation record ed. [facility] [address] [place], [address], 01/10/2024 09:35:09 02/15/20 24 01/27/2024 XR, hip, unila teral No observ ation record ed. [email or web address] [facility] (Medical Records) [address] [facility], [place], [address], 02/17/2024 08:21:53 Result Notes None recorded. Problems Name Problem SNOMED Code Status Onset Date Resolution Date Notes Provider Name and Address Organization Details Recorded Time Acute sinusiti s 55467228 Completed 200809/12/2013 RECORDED 04/02/19 09 3:39PM BY URI SAVAGE, NEELIMAATI ON/ADDEN DUM Not Available [facility] 4 15:04:04 Adult health examinat ion Completed 201312/19/2015 URI Bunn [facility] 6 14:03:03 Screenin g for malignan t neoplasm of breast Completed 201109/12/2013 RECORDED 10/06/19 12 3:45PM BY RUSTY WILCOX MA, NEELIMAATI ON/ADDEN DUM Not Available [facility] 4 15:04:04 Screenin g for malignan t neoplasm of cervix Completed 201109/12/2013 RECORDED 10/06/19 12 3:45PM BY RUSTY WILCOX MA, NEELIMAATI ON/ADDEN DUM Not Available [facility] 4 15:04:04 Neck pain [id number] Completed 201307/01/2016 Pooja potter [facility] 7 09:28:47 Chest pain [id number] Completed 200709/12/2013 RECORDED 11/07/19 08 2:49PM BY RUSTY WILCOX MA, ALEJANDRO ON/ADDEN DUM Not Available [facility] 4 15:04:04 Malaise and fatigue [id number] Completed 201307/01/2016 Pooja potter, [place] 7 09:28:41 Tobacco user [id number] Completed 201312/19/2015 Removal Reason: quit URI Bunn, [place] 6 14:04:28 History of clinical finding in subject [id number] Completed 201312/19/2015 URI Bunn, [place] 6 14:03:36 Gastroes ophageal reflux disease 258356266 Active 2013 Not Available [facility] 3 12:18:48 Hearing loss 91772015 Completed 201312/13/2018 Removal Reason: entered twice Jessie Jigar potter, [place] 9 16:51:59 Herpes zoster [id number] Completed 201307/09/2023 Bryant Beauchamp PA-C [address], [place], [address] , [facility] 4 11:17:16 Hyperlip idemia 83956161 Active 2013 Not Available [facility] 3 12:18:48 Low back pain 271510696 Completed 201209/12/2013 RECORDED 03/16/19 13 1:57PM BY RUSTY WILCOX MA, ANNOTATI ON/ADDEN DUM Bryant Beauchamp PA-C [address], [place], [address] , [facility] 4 11:16:47 Renewal of prescrip tion Completed 201209/12/2013 RECORDED 03/16/19 13 1:57PM BY RUSTY I MERRILL- JERI, MA, ANNOTATI ON/ADDEN DUM Not Available [facility] 4 15:04:05 Influenz a vaccine needed [id number] 06 Completed 201209/12/2013 RECORDED 03/16/19 13 1:57PM BY RUSTY WILCOX MA, ANNOTATI ON/ADDEN DUM Not Available [facility] 4 15:04:05 Administ ration of viral vaccine Completed 200809/12/2013 RECORDED 10/12/19 09 4:46PM BY NAHID GEIGER MD, OFFICE VISIT Not Available [facility] 4 15:04:05 Administ ration of bacteria l and viral vaccine Completed 200709/12/2013 RECORDED 12/28/19 08 3:42PM BY MARIELY MOORE, OFFICE VISIT Not Available [facility] 4 15:04:05 Osteoart hritis 070047813 Completed 201312/13/2018 Bryant Beauchamp PA-C [address], [place], [address] , [facility] 9 11:40:52 Infectiv e otitis externa 02814023 Completed 201109/12/2013 RECORDED 10/06/19 12 3:45PM BY RUSTY WILCOX MA, ANNOTATI ON/ADDEN DUM Not Available [facility] 4 15:04:05 Enthesop athy of ankle AND/OR tarsus 51435691 Completed 201109/12/2013 RECORDED 10/06/19 12 3:45PM BY RUSTY WILCOX MA, ANNOTATI ON/ADDEN DUM Not Available [facility] 4 15:04:05 Polymyal clark rheumati ca 95969725 Completed 201209/12/2013 RECORDED 03/16/19 13 1:57PM BY NAHID GEIGER MD, ANNOTATI ON/ADDEN DUM Not Available [facility] 4 15:04:05 Screenin g for malignan t neoplasm of colon Completed 200809/12/2013 RECORDED 10/12/19 09 3:56PM BY URI SALES, NEELIMAATI ON/ADDEN DUM Not Available [facility] 4 15:04:05 Spinal stenosis 73163852 Completed 201312/13/2018 Bryant Beauchamp PA-C [address], [place], [address] , [facility] 9 11:46:20 Spinal stenosis of lumbar region 58842883 Active 2013 S/p Nervo CSC implanta tion in April. Bryant Beauchamp PA-C [address], [place], [address] , [facility] 4 11:19:02 Temporom andibula r joint disorder 76884640 Completed 201301/02/2020 Bryant Beauchamp PA-C [address], [place], [address] , [facility] 0 11:52:19 Tobacco dependen ce syndrome 01291594 Completed 201109/12/2013 RECORDED 03/31/19 12 4:11PM BY RUSTY WILCOX MA, NEELIMAATI ON/ADDEN DUM Not Available [facility] 4 15:04:05 Enthesop athy of hip region 62243932 Completed 201109/12/2013 RECORDED 10/06/19 12 3:45PM BY RUSTY WILCOX MA, ANNOTATI ON/ADDEN DUM Not Available [facility] 4 15:04:05 Patient status finding [id number] Completed 201312/19/2015 URI Bunn, [place] 6 14:02:48 Acute sinusiti s 68119177 Completed 200810/02/2013 RECORDED 04/02/19 09 3:39PM BY URI SAVAGE, NEELIMAATI ON/ADDEN DUM Not Available [facility] 4 06:58:53 Adult health examinat ion Completed 201310/02/2013 RECORDED 09/01/19 14 10:24AM BY RUSTY WILCOX MA, ANNOTATI ON/ADDEN DUM URI Bunn, [place] 6 14:03:03 Screenin g for malignan t neoplasm of breast Completed 201110/02/2013 RECORDED 10/06/19 12 3:45PM BY RUSTY WILCOX MA, ANNOTATI ON/ADDEN DUM Not Available [facility] 4 06:58:53 Open wound [id number] Completed 201310/02/2013 RECORDED 09/02/19 14 11:57AM BY LA NENA PEREZ I, ANNOTATI ON/ADDEN DUM Not Available [facility] 4 06:58:53 Screenin g for malignan t neoplasm of cervix Completed 201110/02/2013 RECORDED 10/06/19 12 3:45PM BY RUSTY WILCOX MA, ANNOTATI ON/ADDEN DUM Not Available [facility] 4 06:58:53 Chest pain 28793799 Completed 200710/02/2013 RECORDED 11/07/19 08 2:49PM BY RUSTY WILCOX MA, ANNOTATI ON/ADDEN DUM Not Available [facility] 4 06:58:53 Malaise and fatigue 358634596 Completed 201310/02/2013 RECORDED 09/01/19 14 10:24AM BY RUSTY WILCOX MA, ANNOTATI ON/ADDEN DUM Pooja potter, [place] 7 09:28:41 Tobacco user [id number] Completed 201310/02/2013 RECORDED 09/01/19 14 10:24AM BY RUSYT WILCOX MA, ANNOTATI ON/ADDEN DUM RUI Bunn, [place] 6 14:04:28 Low back pain 060862230 Completed 201210/02/2013 RECORDED 03/16/19 13 1:57PM BY RUSTY WILCOX MA, ANNOTATI ON/ADDEN DUM Bryant Beauchamp PA-C [address] [facility] [address], [place], [address] , [facility] 4 11:16:47 Renewal of prescrip tion Completed 201210/02/2013 RECORDED 03/16/19 13 1:57PM BY RUSTY WILCOX MA, ANNOTYOLIS ON/ADDEN DUM Not Available [facility] 4 06:58:54 Influenz a vaccine needed [id number] 06 Completed 201210/02/2013 RECORDED 03/16/19 13 1:57PM BY RUSTY WILCOX MA, ANNOTATI ON/ADDEN DUM Not Available [facility] 4 06:58:54 Administ ration of viral vaccine Completed 200810/02/2013 RECORDED 10/12/19 09 4:46PM BY NAHID GEIGER MD, OFFICE VISIT Not Available [facility] 4 06:58:54 Administ ration of bacteria l and viral vaccine Completed 200710/02/2013 RECORDED 12/28/19 08 3:42PM BY MARIELY MOORE, OFFICE VISIT Not Available [facility] 4 06:58:54 Infectiv e otitis externa 35620400 Completed 201110/02/2013 RECORDED 10/06/19 12 3:45PM BY RUSTY WILCOX MA, ANNOTATI ON/ADDEN DUM Not Available [facility] 4 06:58:54 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 Not Available [facility] 3 12:18:48 Enthesop athy of ankle AND/OR tarsus 02317202 Completed 201110/02/2013 RECORDED 10/06/19 12 3:45PM BY RUSTY WILCOX MA, ANNOTATI ON/ADDEN DUM Not Available [facility] 4 06:58:54 Polymyal clark rheumati ca 05386533 Completed 201210/02/2013 RECORDED 03/16/19 13 1:57PM BY NAHID GEIGER MD, ANNOTATI ON/ADDEN DUM Not Available [facility] 4 06:58:54 Screenin g for malignan t neoplasm of colon Completed 200810/02/2013 RECORDED 10/12/19 09 3:56PM BY URI SALES, ANNOTATI ON/ADDEN DUM Not Available [facility] 4 06:58:54 Tobacco dependen ce syndrome 04820185 Completed 201110/02/2013 RECORDED 03/31/19 12 4:11PM BY RUSTY WILCOX MA, ANNOTATI ON/ADDEN DUM Not Available [facility] 4 06:58:54 Enthesop athy of hip region 07065923 Completed 201110/02/2013 RECORDED 10/06/19 12 3:45PM BY RUSTY WILCOX MA, ANNOTATI ON/ADDEN DUM Not Available [facility] 4 06:58:54 Fatigue 79347410 Completed 07/01/2016 Pooja potter [place] 7 09:28:51 Body mass index 30+ - obesity 314573857 Completed 12/13/2018 Removal Reason: dx changed Jessie potter [place] 9 16:52:08 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 wrist correcte d Bryant Beauchamp PA-C [address] [address], [place], [address] , [facility] 4 11:17:08 Elevated blood-pr essure reading without diagnosi s of hyperten sarah 637716567 Completed 05/25/2017 Bryant Beauchamp PA-C [address], [place], [address] , [facility] 8 10:47:33 Ex-smoke r 6322222 Active 2015 Not Available [facility] 3 12:18:49 Osteopen ia 402063230 Active 2017 Not Available [facility] 3 12:18:48 Hyperten sive disorder 62416807 Completed 201701/02/2020 Bryant [employer] [address], [place], [address] , [facility] 0 12:06:51 Stress-r elated problem 462169038 Completed 201712/13/2018 Bryant ABEL[employer]PlayWinBernadette [address], [place], [address] , [facility] 9 11:46:27 Impaired fasting glycemia 451944012 Active 2018 Not Available [facility] 3 12:18:48 Hearing loss 24714256 Active 2018 Not Available [facility] 3 12:18:48 Urge incontin ence of urine 70207555 Active 2018 Not Available [facility] 3 12:18:49 Obesity 178899104 Completed 201801/02/2020 [facility] 12:45[facility]16 Postherp etic neuralgi a 0483576 Completed 201801/02/2020 Bryant [employer]ette [address], [place], [address] , [facility] 0 11:51:48 Major depressi on in full remissio n 17666040 Completed 201907/09/2023 Bryant [employer] [address], [place], [address] , [facility] 4 11:16:31 Hyperten sive renal disease 82165414 Active 2019 Not Available [facility] 3 12:18:48 Obstruct martine sleep apnea of adult 32560131623 03 Active 2019 Not Available [facility] 3 12:18:48 Obesity 108181944 Active 2021 Not Available [facility] 3 12:18:48 Obstruct martine sleep apnea syndrome 08485164 Active 2021 Not Available [facility] 3 12:18:48 Periodic limb movement disorder 535673704 Active 2022 Not Available [facility] 3 12:18:48 Muscle spasm of cervical muscle of neck 08770338190 4 Active 2022 Not Available [facility] 3 12:18:48 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 01544563136 16805 Active 2023 Bryant Beauchamp PA-C [address], [place], [address] , [facility] 4 13:27:23 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 90279950588 9108 Active 2023 Bryant ABEL-C [address], [place], [address] , [facility] 4 11:16:06 Body mass index 25-29 - overweig ht 972043190 Active 2023 Bryant ABEL-C [address], [place], [address] , [facility] 4 13:40:21 Dupuytre n's disease of palm 237413507 Active 2023 Bryant DE LA OC [address], [place], [address] , [facility] 4 14:32:00 Chronic kidney disease stage 3A 468261623 Active 2024 Bryant Beauchamp PA-C [address], [place], [address] , [facility] 5 20:04:34 Prediabe saul 903164727 Active 2024 Bryant Beauchamp PA-C [address], [place], [address] , [facility] 5 20:07:06 Notes:Some problems listed i n Document: #[id number] could not be added to this patient's chart. Please review this document and add these problems to the patient's chart manually as needed. Problem Notes None recorded. Procedures Surgical History Date Name Laterality Status Provider Name and Address Organization Details Recorded Time 12/28/19 24 Advanced Care Planning completed Saniya Jackson LPN [place] 12/28/2023 13:23:47 12/24/19 24 CT of lungs completed Tiffanie Lawrence [place] 01/10/2024 09:35:07 06/11/19 24 implantation of temporary spinal cord stimulator completed Tiffanie Lawrence [place] 06/14/2023 10:27:58 05/14/19 24 implantation of temporary spinal cord stimulator completed Tiffanie Lawrence [place] 05/17/2023 09:06:53 04/09/19 24 Most Recent Mammogram completed Tiffanie Lawrence [place] 02/17/2024 08:22:32 08/12/19 23 Advanced Care Planning completed Yana Carias MA [place] 08/11/2022 14:34:06 09/16/19 22 transforaminal lumbar interbody fusion completed Simona Lora [place] 09/23/2021 15:53:19 04/01/19 22 Mammogram screening completed Leticia Ruiz [place] 04/07/2021 13:21:53 03/22/19 21 Most Recent Bone Density completed Kay David MA [place] 04/30/2021 15:12:39 01/02/20 20 Six-Item Cognitive Test completed Eliane Sales MA [place] 01/02/2020 11:19:38 11/13/19 20 Egd diagnostic brush wash completed Saniyadeja Centeno [place] 11/14/2019 10:08:01 09/28/19 20 epidural steroid injection completed [facility] 10/02/2019 09:09:17 02/18/20 19 injection of tendon sheath completed [facility] 02/20/2019 15:08:15 12/14/19 19 Mini-Cog Test completed Rusty barth [facility] 12/13/2018 11:23:15 07/13/19 18 Dxa bone density stacia vrt fx completed Rusty barth [facility] 12/13/2018 11:09:12 05/26/19 18 Mini-Cog Test completed La Nena Guillen [place] 05/25/2017 10:01:28 05/14/19 17 Date of Last Colonoscopy completed Rusty barth [facility] 12/13/2018 11:19:18 05/14/19 17 Colonoscopy completed Rusty barth [facility] 12/13/2018 11:19:08 12/19/19 16 Fall Risk Assessment completed Rusty barth [facility] 12/19/2015 14:16:52 12/19/19 16 Mini-Cog Test completed Rusty GageChrisade barth [facility] 12/19/2015 14:18:45 12/07/19 15 Fall Risk Assessment completed Rusty barth [facility] 12/06/2014 09:28:12 12/07/19 15 Mini-Cog Test completed Rusty barth [facility] 12/06/2014 09:30:58 04/01/19 14 completed Keeley Bowman MA [place] 11/14/2013 13:20:07 03/27/19 14 Back Surgery completed Rusty barth MA [place] 12/06/2014 09:29:02 08/31/19 13 Date of Last Pap Smear completed Keeley Bowman MA [place] 11/14/2013 13:20:07 06/15/19 07 completed Keeley Bowman MA [place] 11/14/2013 13:20:07 Imaging Results Imaging Date Name Status LastModified by [facility] Details LastModified Time 12/24/2023 LDCT, chest, for lung cancer screening completed [address] [facility] [address] [place], [address], 12/24/2023 13:46:28 12/24/2023 CT chest ldct lung program completed [facility] (Outpt Imaging) [address] [place], [address], 01/07/2024 11:54:18 12/24/2023 LDCT, chest, for lung cancer screening completed [address] [facility] [address] [place], [address], 01/10/2024 09:35:09 01/27/2024 XR, hip, unilateral completed [address] (Medical Records) [address] [place], [address], 02/17/2024 08:21:53 Procedure Notes None recorded. Medical Equipment None Reported. Allergies No known drug allergies Medications Name Sig Start Date Stop Date Status Note LastModified by Organization Details LastModified Time Prescript ion - Prior Authoriza tion Request 12/18 completed Not Available Not Available Not Available losartan 50 mg tablet TAKE 1 TABLET BY MOUTH EVERY DAY active Not Available Not Available No t Available celecoxib 200 mg capsule TAKE 1 CAPSULE BY MOUTH EVERY DAY active Not Available Not Available No t Available amoxicill in 500 mg capsule TAKE 1 TABLET THREE TIMES DAILY 09/05 completed Not Available Not Available Not Available atorvasta tin 40 mg tablet TAKE 1 TABLET BY MOUTH EVERY DAY active Not Available Not Available No t Available anastrozo le 1 mg tablet TAKE 1 TABLET BY MOUTH EVERY DAY 06/06 completed Not Available Not Available Not Available prednison e 10 mg tablet 09/30 completed Not Available Not Available Not Available gabapenti n 600 mg tablet TAKE 1 TABLET BY MOUTH EVERYDAY AT BEDTIME and 1 in the am 11/05 completed decrease d Not Available Not Available Not Available atorvasta tin 20 mg tablet TAKE 1 TABLET BY MOUTH EVERY DAY DIRECTED 01/01 completed Not Available Not Available Not Available oxybutyni n chloride ER 10 mg tablet,ex tended release 24 hr Take 1 tablet every day by oral route for 30 days. 12/13 completed changed to Myrbetri q Not Available Not Available Not Available biotin 5 mg capsule Take 1 capsule every day by oral route. active Not Available Not Available No t Available ibuprofen 800 mg tablet active Not Available Not Available Not Available tizanidin e 4 mg tablet TAKE 1 TABLET BY MOUTH THREE TIMES DAY 03/03 completed Not Available Not Available Not Available benzonata te 200 mg capsule 10/23 completed Not Available Not Available Not Available valacyclo vir 1 gram tablet EVERY 8 HOURS for 1 week 11/01 completed Not Available Not Available Not Available meloxicam 15 mg tablet Take 1 tablet every day by oral route for 30 days. 12/11 completed Not Available Not Available Not Available famotidin e 40 mg tablet TAKE 1 TABLET BY MOUTH EVERYDAY AT BEDTIME active Not Available Not Available No t Available prednison e 20 mg tablet TAKE 2 TABLETS BY MOUTH EVERY DAY DIRECTED FOR 5 DAYS 09/30 completed Not Available Not Available Not Available cyanocoba iftikhar (vit B-12) 1,000 mcg tablet Take 1 tablet every day by oral route. active Not Available Not Available No t Available amlodipin e 5 mg tablet TAKE 1 TABLET BY MOUTH EVERY DAY active Not Available Not Available No t Available sulfameth oxazole 800 mg-trimet hoprim 160 mg tablet TAKE 1 TABLET BY MOUTH EVERY 12 HOURS DIRECTED FOR 3 DAYS 12/01 completed Not Available Not Available Not Available Ditropan 5 mg tablet 11/26 completed RECORDED 11/27/19 10 2:59PM BY URI SALES OFFICE VISIT;DR Jerald AGUIRRE I Not Available Not Available Not Available acetamino phen 500 mg tablet Take 2 tablets 3 times a day by oral route as needed. 04/30 completed per rheumato logist Not Available Not Available Not Available simvastat in 40 mg tablet TAKE 1 TABLET BY MOUTH EVERY DAY 11/23 completed Not Available Not Available Not Available acetamino phen ER 650 mg tablet,ex tended release Take 2 tablets every 8 hours by oral route as needed. active Not Available Not Available No t Available ketorolac 0.5 % eye drops INSTILL 1 DROP INTO AFFECTED EYE 3 TIMES A DAY START 2 DAYS PRIOR TO EACH SURGERY. TAPER DIRECTED 08/11 completed Not Available Not Available Not Available Aleve 220 mg tablet Take 1 tablet every 12 hours by oral route as needed. active Not Available Not Available No t Available oxycodone -acetamin ophen 5 mg-325 mg tablet EVERY 6 HOURS NEEDED 02/20 completed RECORDED 09/20/19 11 12:51PM BY LETY PRICE MD, MEDICATI ON AUTO-BEN CTIVATIO N; Not Available Not Available Not Available hydromorp alphonso 2 mg tablet active Not Available Not Available Not Available famotidin e 20 mg tablet TAKE 1 TABLET (20 MG TOTAL) BY MOUTH ONCE DAILY 04/26 completed Not Available Not Available Not Available cyanocoba iftikhar (vit B-12) 500 mcg tablet Take 1 tablet every day by oral route. 04/30 completed Not Available Not Available Not Available exemestan e 25 mg tablet TAKE 1 TABLET BY MOUTH EVERY DAY active Not Available Not Available No t Available desonide 0.05 % topical ointment Apply by topical route as needed for 7 days. active Not Available Not Available No t Available gabapenti n 800 mg tablet Take 1 tablet every day by oral route as directed . 12/13 completed Not Available Not Available Not Available amlodipin e 5 mg-benaze pril 10 mg capsule Take 1 capsule every day by oral route as directed for 90 days. 11/23 completed Not Available Not Available Not Available amlodipin e 10 mg tablet TAKE 1 TABLET BY MOUTH EVERY DAY active Not Available Not Available No t Available benzonata te 100 mg capsule Take 1 capsule 3 times a day by oral route for 10 days. 08/11 completed Not Available Not Available Not Available econazole nitrate 1 % topical cream 12/18 completed Not Available Not Available Not Available cephalexi n 500 mg capsule TAKE 2 CAPS BY MOUTH EVERY 8 HOURS FOR 6 DAYS 07/08 completed Not Available Not Available Not Available biotin 10,000 mcg capsule Take 1 capsule every day by oral route. active Not Available Not Available No t Available Tums Ultra 400 mg (as calcium carbonate 1,000 mg) chewable tablet Take 2 tablets 3 times a day by oral route. active for calcium Not Available Not Available Not Available lisinopri l 10 mg tablet TAKE 1 TABLET BY MOUTH EVERY DAY 10/23 completed Not Available Not Available Not Available lidocaine 5 % topical patch APPLY 1-3 TOPICAL EVERY DAY FOR 30 DAYS. 12 HOURS ON/12 HOURS OFF active Not Available Not Available No t Available brimonidi ne 0.2 % eye drops INSTILL 1 DROP IN RIGHT EYE THREE TIMES DAILY 09/01 completed Not Available Not Available Not Available oxycodone 5 mg capsule 07/08 completed Not Available Not Available Not Available oxybutyni n chloride ER 5 mg tablet,ex tended release 24 hr 05/25 completed Not Available Not Available Not Available gabapenti n 300 mg capsule PLEASE TAKE 1 CAPSULE IN THE EVENING NEEDED FOR THE PAIN active Not Available Not Available No t Available omeprazol e 20 mg capsule,d elayed release TAKE 1 CAPSULE BY MOUTH TWICE A DAY DIRECTED 03/24 completed Not Available Not Available Not Available hydrochlo rothiazid e 25 mg tablet TAKE 1 TABLET BY MOUTH EVERY DAY active Not Available Not Available No t Available mirtazapi ne 15 mg tablet TAKE 1 TABLET BY MOUTH EVERYDAY AT BEDTIME 09/05 completed Not Available Not Available Not Available methylpre dnisolone 4 mg tablets in a dose pack TAKE 6 TABLETS ON DAY 1 DIRECTED ON PACKAGE AND DECREASE BY 1 TAB EACH DAY FOR A TOTAL OF 6 DAYS 03/03 completed Not Available Not Available Not Available albuterol sulfate HFA 90 mcg/actua tion aerosol inhaler INHALE 2 PUFFS INTO THE LUNGS EVERY 4 HOURS NEEDED active Not Available Not Available No t Available Cortispor in-TC 3.3 mg-3 mg-10 mg-0.5 mg/mL ear drops,izabella pension 3 TIMES A DAY FOR INFECTIV E OTITIS EXTERNA 10/05 completed RECORDED 10/06/19 12 3:58PM BY RUSTY WILCOX MA, OFFICE VISIT; Not Available Not Available Not Available losartan 100 mg tablet TAKE 1 TABLET BY MOUTH EVERY DAY active Not Available Not Available No t Available fluticaso ne propionat e 50 mcg/actua tion nasal spray,izabella pension Inhale 1 spray every day by nasal route as needed for 30 days. 06/16 completed Not Available Not Available Not Available ipratropi um bromide 21 mcg (0.03 %) nasal spray [place] 1 spray every day by nasal route for 90 days. 12/01 completed Not Available Not Available Not Available diazepam 5 mg tablet 10/11 completed RECORDED 10/12/19 13 3:59PM BY RUSTY WILCOX MA, OFFICE VISIT; Not Available Not Available Not Available amoxicill in 875 mg-potass ium clavulana te 125 mg tablet TAKE 1 TABLET BY MOUTH EVERY 12 HOURS FOR 10 DAYS 08/11 completed Not Available Not Available Not Available oxycodone 5 mg tablet TAKE 1 TABLET BY MOUTH EVERY 6 HOURS FOR 1 DAYS NEEDED FOR PAIN 06/06 completed Not Available Not Available Not Available Estrace 0.01% (0.1 mg/gram) vaginal cream Insert 1 g every 72 hours by vaginal route as directed for 120 days. 12/13 completed Not Available Not Available Not Available Saline Nasal 0.65 % spray aerosol Take 1 spray every day by nasal route in the morning for 30 days. 2022 active Not Available Not Available Not Avai lable Vitamin D3 25 mcg (1,000 unit) capsule Take 1 capsule every day by oral route. active Not Available Not Available No t Available cyclobenz aprine 5 mg tablet TAKE 1 TABLET BY MOUTH THREE TIMES A DAY DIRECTED FOR 10 DAYS 12/11 completed Not Available Not Available Not Available Premarin 0.625 mg/gram vaginal cream Insert 1 applicat ion 3 times a week by vaginal route for 30 days. 10/23 completed Not Available Not Available Not Available bupropion HCl XL 300 mg 24 hr tablet, extended release TAKE 1 TABLET BY MOUTH EVERY DAY active Not Available Not Available No t Available Prefest 1 mg (15)/1 mg-0.09 mg (15) tablet QD 12/27 completed RECORDED 12/28/19 08 3:39PM BY MARIELY MOORE, OFFICE VISIT;DR Jerald AGUIRRE I Not Available Not Available Not Available Boostrix Tdap 2.5 Lf unit-8 mcg-5 Lf/0.5 mL intramusc ular syringe 06/22 completed Not Available Not Available Not Available Lyrica 75 mg capsule Take 1 capsule twice a day by oral route for 30 days. 12/11 completed Not Available Not Available Not Available chlorhexi dine gluconate 0.12 % mouthwash Place by mucous mem route for 30 days. 12/18 completed Not Available Not Available Not Available Vicodin QID PRN 06/12 completed RECORDED 10/11/19 09 10:26AM BY NAHID GEIGER MD, MEDICATI ON AUTO-BEN CTIVATIO N; Not Available Not Available Not Available omeprazol e NEEDED 11/26 completed RECORDED 11/27/19 10 2:59PM BY URI SALES, OFFICE VISIT; Not Available Not Available Not Available varenicli ne tartrate 1 mg tablet BID 12/26 completed RECORDED 02/14/20 10 9:31AM BY NAHID GEIGER MD, MEDICATI ON AUTO-BEN CTIVATIO N; Not Available Not Available Not Available Zostavax (PF) 19,400 unit/0.65 mL subcutane ous suspensio n YOLIS X 1 10/12 completed RECORDED 10/13/19 09 8:52AM BY NAHID GEIGER MD, MEDICATI ON AUTO-BEN CTIVATIO N; Not Available Not Available Not Available Chantix Starting Month Peng 0.5 mg (11)-1 mg (42) tablets in dose pack BID 12/24 completed RECORDED 02/14/20 10 9:31AM BY NAHID GEIGER MD, MEDICATI ON AUTO-BEN CTIVATIO N; Not Available Not Available Not Available peg 3350-elec trolytes 236 gram-22.7 4 gram-6.74 gram-5.86 gram solution 07/01 completed Not Available Not Available Not Available biotin 2,500 mcg capsule Take 1 capsule every day by oral route. 05/25 completed Not Available Not Available Not Available Myrbetriq 25 mg tablet,ex tended release TAKE 1 TABLET BY MOUTH EVERY DAY DO NOT CRUSH OR CHEW 08/11 completed Not Available Not Available Not Available Myrbetriq 50 mg tablet,ex tended release TAKE 1 TABLET BY MOUTH EVERY DAY DO NOT CRUSH OR CHEW active Not Available Not Available No t Available Caltrate with Vitamin D3 600 mg-20 mcg (800 unit) tablet Take 1 tablet every day by oral route. 05/25 completed Not Available Not Available Not Available Flonase Sensimist 27.5 mcg/actua tion nasal spray,izabella pension Take 1 spray every day by nasal route at bedtime for 30 days. 2022 active PRN Not Available Not Available Not Avai lable Fluad 65yr up(PF)45 mcg(15 mcgx3)/0. 5 mL intramusc ular syringe 11/15 completed Not Available Not Available Not Available Vitals Date Recorded Body height Body mass index (BMI) Body weight Heart rate Oxygen saturation Oxygen saturation in Arterial blood by Pulse oximetry Body temperature Systolic blood pressure Diastolic blood pressure Provider Name and Address Organization Details Last Updated DateTime 159.39 cm 29.5 kg/m2 07001.7 4 g 76 /min 96 % 96 % 97.5 [degF] 123 mm[Hg] 68 mm[Hg] Pamella samuel MA [facility] 4 10:21:06 Date Recorded Heart rate Systolic blood pressure Diastolic blood pressure Provider Name and Address Organization Details Last Updated DateTime 10/19/2023 75 /min 124 mm[Hg] 78 mm[Hg] Not Available [facility] 10/19/2023 12:13:03 Date Recorded Heart rate Systolic blood pressure Diastolic blood pressure Provider Name and Address Organization Details Last Updated DateTime 10/22/2023 66 /min 140 mm[Hg] 65 mm[Hg] Not Available [facility] 10/22/2023 10:41:04 Date Recorded Heart rate Systolic blood pressure Diastolic blood pressure Provider Name and Address Organization Details Last Updated DateTime 10/23/2023 85 /min 125 mm[Hg] 63 mm[Hg] Not Available [facility] 10/23/2023 11:53:03 Date Recorded Heart rate Systolic blood pressure Diastolic blood pressure Provider Name and Address Organization Details Last Updated DateTime 10/31/2023 72 /min 129 mm[Hg] 63 mm[Hg] Not Available [facility] 10/31/2023 11:30:05 Date Recorded Heart rate Systolic blood pressure Diastolic blood pressure Provider Name and Address Organization Details Last Updated DateTime 11/03/2023 66 /min 147 mm[Hg] 73 mm[Hg] Not Available [facility] 11/03/2023 09:35:02 Date Recorded Heart rate Systolic blood pressure Diastolic blood pressure Provider Name and Address Organization Details Last Updated DateTime 11/05/2023 63 /min 138 mm[Hg] 62 mm[Hg] Not Available [facility] 11/05/2023 10:20:01 Date Recorded Heart rate Systolic blood pressure Diastolic blood pressure Provider Name and Address Organization Details Last Updated DateTime 11/06/2023 70 /min 134 mm[Hg] 68 mm[Hg] Not Available [facility] 11/06/2023 10:51:05 Date Recorded Heart rate Systolic blood pressure Diastolic blood pressure Provider Name and Address Organization Details Last Updated DateTime 11/09/2023 90 /min 132 mm[Hg] 67 mm[Hg] Not Available [facility] 11/09/2023 13:32:06 Date Recorded Heart rate Systolic blood pressure Diastolic blood pressure Provider Name and Address Organization Details Last Updated DateTime 11/11/2023 74 /min 131 mm[Hg] 66 mm[Hg] Not Available [facility] 11/11/2023 11:14:06 Date Recorded Heart rate Systolic blood pressure Diastolic blood pressure Provider Name and Address Organization Details Last Updated DateTime 11/12/2023 70 /min 133 mm[Hg] 68 mm[Hg] Not Available [facility] 11/12/2023 09:33:05 Date Recorded Heart rate Systolic blood pressure Diastolic blood pressure Provider Name and Address Organization Details Last Updated DateTime 11/15/2023 70 /min 120 mm[Hg] 61 mm[Hg] Not Available [facility] 11/15/2023 12:39:04 Date Recorded Heart rate Systolic blood pressure Diastolic blood pressure Provider Name and Address Organization Details Last Updated DateTime 11/22/2023 68 /min 142 mm[Hg] 65 mm[Hg] Not Available [facility] 11/22/2023 09:22:02 Date Recorded Heart rate Systolic blood pressure Diastolic blood pressure Provider Name and Address Organization Details Last Updated DateTime 11/23/2023 68 /min 141 mm[Hg] 69 mm[Hg] Not Available [facility] 11/23/2023 08:42:03 Date Recorded Heart rate Systolic blood pressure Diastolic blood pressure Provider Name and Address Organization Details Last Updated DateTime 12/02/2023 106 /min 98 mm[Hg] 57 mm[Hg] Not Available [facility] 12/02/2023 13:03:04 Date Recorded Body height Body mass index (BMI) Body weight Heart rate Oxygen saturation Oxygen saturation in Arterial blood by Pulse oximetry Body temperature Systolic blood pressure Diastolic blood pressure Provider Name and Address Organization Details Last Updated DateTime 159.39 cm 27.9 kg/m2 50670.8 1 g 85 /min 97 % 97 % 98 [degF] 128 mm[Hg] 76 mm[Hg] Kay Andersen [facility] 15:13:02 Date Recorded Heart rate Systolic blood pressure Diastolic blood pressure Provider Name and Address Organization Details Last Updated DateTime 12/04/2023 90 /min 114 mm[Hg] 69 mm[Hg] Not Available [facility] 12/04/2023 10:35:07 Date Recorded Heart rate Systolic blood pressure Diastolic blood pressure Provider Name and Address Organization Details Last Updated DateTime 12/06/2023 75 /min 145 mm[Hg] 70 mm[Hg] Not Available [facility] 12/06/2023 08:32:06 Date Recorded Heart rate Systolic blood pressure Diastolic blood pressure Provider Name and Address Organization Details Last Updated DateTime 12/14/2023 84 /min 111 mm[Hg] 52 mm[Hg] Not Available [facility] 12/14/2023 14:00:11 Date Recorded Heart rate Heart rate Systolic blood pressure Diastolic blood pressure Systolic blood pressure Diastolic blood pressure Provider Name and Address Organization Details Last Updated DateTime 90 /min 96 /min 117 mm[Hg] 81 mm[Hg] 127 mm[Hg] 58 mm[Hg] Not Available [facility] 10:08:03 Date Recorded Heart rate Systolic blood pressure Diastolic blood pressure Provider Name and Address Organization Details Last Updated DateTime 12/17/2023 88 /min 117 mm[Hg] 70 mm[Hg] Not Available [facility] 12/17/2023 09:15:03 Date Recorded Heart rate Systolic blood pressure Diastolic blood pressure Provider Name and Address Organization Details Last Updated DateTime 12/21/2023 90 /min 132 mm[Hg] 69 mm[Hg] Not Available [facility] 12/21/2023 11:06:07 Date Recorded Heart rate Systolic blood pressure Diastolic blood pressure Provider Name and Address Organization Details Last Updated DateTime 12/24/2023 75 /min 126 mm[Hg] 62 mm[Hg] Not Available [facility] 12/24/2023 09:38:03 Date Recorded Heart rate Systolic blood pressure Diastolic blood pressure Provider Name and Address Organization Details Last Updated DateTime 12/26/2023 81 /min 137 mm[Hg] 70 mm[Hg] Not Available [facility] 12/26/2023 11:55:03 Date Recorded Heart rate Systolic blood pressure Diastolic blood pressure Provider Name and Address Organization Details Last Updated DateTime 12/28/2023 83 /min 115 mm[Hg] 58 mm[Hg] Not Available [facility] 12/28/2023 08:41:07 Date Recorded Body height Body mass index (BMI) Body weight Heart rate Oxygen saturation Oxygen saturation in Arterial blood by Pulse oximetry Body temperature Systolic blood pressure Diastolic blood pressure Provider Name and Address Organization Details Last Updated DateTime 159.39 cm 27.9 kg/m2 81955.5 1 g 92 /min 98 % 98 % 98.5 [degF] 121 mm[Hg] 71 mm[Hg] Saniya Jackson LPN [facility] 13:28:31 Date Recorded Heart rate Systolic blood pressure Diastolic blood pressure Provider Name and Address Organization Details Last Updated DateTime 01/03/2024 72 /min 127 mm[Hg] 61 mm[Hg] Not Available [facility] 01/03/2024 07:30:05 Date Recorded Heart rate Systolic blood pressure Diastolic blood pressure Provider Name and Address Organization Details Last Updated DateTime 01/21/2024 74 /min 138 mm[Hg] 68 mm[Hg] Not Available [facility] 01/21/2024 11:11:06 Date Recorded Heart rate Systolic blood pressure Diastolic blood pressure Provider Name and Address Organization Details Last Updated DateTime 01/24/2024 96 /min 104 mm[Hg] 57 mm[Hg] Not Available [facility] 01/24/2024 12:28:05 Date Recorded Heart rate Systolic blood pressure Diastolic blood pressure Provider Name and Address Organization Details Last Updated DateTime 02/02/2024 69 /min 133 mm[Hg] 66 mm[Hg] Not Available [facility] 02/02/2024 08:33:02 Date Recorded Heart rate Systolic blood pressure Diastolic blood pressure Provider Name and Address Organization Details Last Updated DateTime 02/07/2024 77 /min 137 mm[Hg] 64 mm[Hg] Not Available [facility] 02/07/2024 10:36:07 Date Recorded Heart rate Systolic blood pressure Diastolic blood pressure Provider Name and Address Organization Details Last Updated DateTime 02/19/2024 85 /min 115 mm[Hg] 54 mm[Hg] Not Available [facility] 02/19/2024 12:13:06 Date Recorded Heart rate Systolic blood pressure Diastolic blood pressure Provider Name and Address Organization Details Last Updated DateTime 02/23/2024 84 /min 113 mm[Hg] 64 mm[Hg] Not Available [facility] 02/23/2024 12:29:03 Date Recorded Heart rate Heart rate Systolic blood pressure Diastolic blood pressure Systolic blood pressure Diastolic blood pressure Provider Name and Address Organization Details Last Updated DateTime 63 /min 68 /min 141 mm[Hg] 64 mm[Hg] 137 mm[Hg] 68 mm[Hg] Not Available [facility] 09:10:06 Date Recorded Heart rate Systolic blood pressure Diastolic blood pressure Provider Name and Address Organization Details Last Updated DateTime 03/06/2024 74 /min 134 mm[Hg] 69 mm[Hg] Not Available [facility] 03/06/2024 09:46:07 Date Recorded Heart rate Systolic blood pressure Diastolic blood pressure Provider Name and Address Organization Details Last Updated DateTime 03/28/2024 87 /min 121 mm[Hg] 64 mm[Hg] Not Available [facility] 03/28/2024 10:13:03 Date Recorded Heart rate Systolic blood pressure Diastolic blood pressure Provider Name and Address Organization Details Last Updated DateTime 04/02/2024 94 /min 121 mm[Hg] 62 mm[Hg] Not Available [facility] 04/02/2024 09:53:07 Date Recorded Heart rate Systolic blood pressure Diastolic blood pressure Provider Name and Address Organization Details Last Updated DateTime 04/04/2024 76 /min 121 mm[Hg] 61 mm[Hg] Not Available [facility] 04/04/2024 10:38:02 Date Recorded Heart rate Systolic blood pressure Diastolic blood pressure Provider Name and Address Organization Details Last Updated DateTime 04/12/2024 86 /min 125 mm[Hg] 66 mm[Hg] Not Available [facility] 04/12/2024 10:37:02 Date Recorded Heart rate Systolic blood pressure Diastolic blood pressure Provider Name and Address Organization Details Last Updated DateTime 04/19/2024 72 /min 126 mm[Hg] 60 mm[Hg] Not Available [facility] 04/19/2024 10:27:09 Date Recorded Heart rate Systolic blood pressure Diastolic blood pressure Provider Name and Address Organization Details Last Updated DateTime 04/20/2024 92 /min 99 mm[Hg] 56 mm[Hg] Not Available [facility] 04/20/2024 09:04:02 Date Recorded Heart rate Systolic blood pressure Diastolic blood pressure Provider Name and Address Organization Details Last Updated DateTime 04/24/2024 69 /min 152 mm[Hg] 73 mm[Hg] Not Available [facility] 04/24/2024 09:47:07 Date Recorded Body height Body mass index (BMI) Body weight Heart rate Oxygen saturation Oxygen saturation in Arterial blood by Pulse oximetry Body temperature Systolic blood pressure Diastolic blood pressure Provider Name and Address Organization Details Last Updated DateTime 159.39 cm 30 kg/m2 52103.5 2 g 69 /min 96 % 96 % 98.1 [degF] 137 mm[Hg] 67 mm[Hg] Rusty gonzalez MA [facility] 11:46:01 Date Recorded Heart rate Systolic blood pressure Diastolic blood pressure Provider Name and Address Organization Details Last Updated DateTime 05/05/2024 68 /min 154 mm[Hg] 73 mm[Hg] Not Available [facility] 05/05/2024 08:16:39 Date Recorded Heart rate Systolic blood pressure Diastolic blood pressure Provider Name and Address Organization Details Last Updated DateTime 05/23/2024 65 /min 133 mm[Hg] 63 mm[Hg] Not Available [facility] 05/23/2024 09:25:36 Date Recorded Heart rate Systolic blood pressure Diastolic blood pressure Provider Name and Address Organization Details Last Updated DateTime 06/01/2024 76 /min 139 mm[Hg] 71 mm[Hg] Not Available [facility] 06/01/2024 09:53:37 Date Recorded Heart rate Heart rate Systolic blood pressure Diastolic blood pressure Systolic blood pressure Diastolic blood pressure Provider Name and Address Organization Details Last Updated DateTime 89 /min 74 /min 97 mm[Hg] 53 mm[Hg] 112 mm[Hg] 56 mm[Hg] Not Available [facility] 11:22:37 Date Recorded Body height Body mass index (BMI) Body weight Heart rate Oxygen saturation Oxygen saturation in Arterial blood by Pulse oximetry Body temperature Systolic blood pressure Diastolic blood pressure Provider Name and Address Organization Details Last Updated DateTime 159.39 cm 29.8 kg/m2 53384.9 3 g 69 /min 96 % 96 % 98.1 [degF] 133 mm[Hg] 68 mm[Hg] Pamella samuel MA [facility] 09:11:56 Date Recorded Heart rate Systolic blood pressure Diastolic blood pressure Provider Name and Address Organization Details Last Updated DateTime 06/07/2024 66 /min 139 mm[Hg] 64 mm[Hg] Not Available [facility] 06/07/2024 09:35:36 Date Recorded Heart rate Systolic blood pressure Diastolic blood pressure Provider Name and Address Organization Details Last Updated DateTime 06/08/2024 65 /min 127 mm[Hg] 66 mm[Hg] Not Available [facility] 06/08/2024 08:32:41 Date Recorded Heart rate Systolic blood pressure Diastolic blood pressure Provider Name and Address Organization Details Last Updated DateTime 06/18/2024 71 /min 143 mm[Hg] 66 mm[Hg] Not Available [facility] 06/18/2024 09:35:35 Date Recorded Heart rate Systolic blood pressure Diastolic blood pressure Provider Name and Address Organization Details Last Updated DateTime 06/23/2024 63 /min 134 mm[Hg] 63 mm[Hg] Not Available [facility] 06/23/2024 09:53:40 Date Recorded Heart rate Systolic blood pressure Diastolic blood pressure Provider Name and Address Organization Details Last Updated DateTime 06/25/2024 59 /min 134 mm[Hg] 63 mm[Hg] Not Available [facility] 06/25/2024 09:55:38 Date Recorded Heart rate Systolic blood pressure Diastolic blood pressure Provider Name and Address Organization Details Last Updated DateTime 06/28/2024 65 /min 148 mm[Hg] 68 mm[Hg] Not Available [facility] 06/28/2024 08:34:36 Social History Question Answer Notes LastModified by Organizat ion Details LastModified Time Tobacco Smoking Status Former Smoker Keeley Bowman MA [facility] 11/14/2013 15:12:21 Do You Have An Advance Directive? Yes Claribel Mejia Information not available 12/02/2021 What Is Your Level Of Alcohol Consumption? Occasional Information not available 11/14/2013 Is Blood Transfusion Acceptable In An Emergency? Yes Information not available 12/06/2014 What Is Your Level Of Caffeine Consumption? Moderate 2 Servings Of Coffee Daily Information not available 04/30/2021 How Much Tobacco Do You Chew? None Information not available 12/06/2014 Are You Currently Employed? No Retired As Of 06/22/2014 Information not available 06/07/2014 What Type Of Diet Are You Following? REGULAR Information not available 11/14/2013 Which Illicit Or Recreational Drugs Have You Used? Marijuana Information not available 04/30/2021 Do You Or Have You Ever Used E-cigarettes Or Vape? 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 6-10yearssinc elastcigarett e Information not available 04/03/2020 Live Alone Or With Others? With Others (Claribel) Information not available 12/02/2021 Do You Take Precautions To Prevent Distracted Driving? Yes Information not available 12/06/2014 How Often Do You Need To Have Someone Help You When You Read Instructions, Pamphlets, Or Other Written Material From Your Doctor Or Pharmacy? Never Information not available 12/06/2014 Have You Served In The ? No Information not available 12/19/2015 *AWV ONLY* Are You Presently Prescribed Opioid Medication By PCP Or Specialist? If YES -Provider Assess The Benefit For Other, Non-opioid Pain Therapies Instead, Even If The Patient Does Not Have OUD But Is Possibly At Risk. No Information not available 04/03/2020 What Was The Date Of Your Most Recent Tobacco Screening? 06/16/2022 Information not available 06/16/2022 How Many Children Do You Have? 3 Jammie, Neyda, And Jerrica Information not available 12/13/2018 What Is Your Current Pack Years? 30ormorepacky ears Information not available 12/02/2021 Do You Use Your Seat Belt Or Car Seat Routinely? Yes Information not available 04/30/2021 Seat Belts Used Routinely Yes Information not available 12/02/2021 Are You Sexually Active? No Information not available 12/06/2014 Smoke Alarm In Home Yes Information not available 12/02/2021 Do You Have Smoke And Carbon Monoxide Detectors In Your Home? Yes Information not available 04/30/2021 At What Age Did You Start Smoking Tobacco? 13 Quit Age 66 Information not available 12/06/2014 Are You Passively Exposed To Smoke? No Information not available 12/06/2014 Do You Or Have You Ever Used Smokeless Tobacco? Never Used Smokeless Tobacco [email or web address] Information not available 01/02/2020 How Much Tobacco Do You Smoke? 1 PPD Information not available 01/02/2020 Do You Use Any Illicit Or Recreational Drugs? Yes Information not available 06/16/2022 Do You Use Sunscreen Routinely? Yes Information not available 04/30/2021 How Many Years Have You Smoked Tobacco? 53 Information not available 12/06/2014 Do You Or Have You Ever Used Any Other Forms Of Tobacco Or Nicotine? No Information not available 06/16/2022 Sex: Unknown Functional Status Question Answer Note LastModified by Organization D etails LastModified Time Are you able to walk? YESWOREST Information not available 12/02/2021 Are you able to care for yourself? Yes Information not available 12/06/2014 What is your exercise level? None Information not available 04/30/2021 Mental Status None recorded. Family History Relationship Description Onset Age of this Age Resolved Age Notes LastModified by Organization Details LastModified Time Father Hypertensive disorder [email or web address] Not available 12/06/2014 09:24:17 Father Chronic obstructive pulmonary disease Not available 2021 14:55:04 Maternal Aunt Malignant neoplastic disease Not available 2021 10:33:48 Maternal Grandmother Malignant neoplastic disease Not available 2021 10:33:48 Paternal Grandmother Malignant neoplastic disease Not available 2021 10:33:48 Mother Chronic obstructive pulmonary disease Not available 2021 14:55:04 Paternal Aunt Diabetes mellitus Not available 2021 14:55:04 Paternal Uncle Diabetes mellitus Not available 2021 14:55:05 Medical History Condition Response Coronary Artery Disease N Other N Gout N Kidney Stones N Blood Diseases N Hyperthyroidism N Breast Cancer N mrsa exposure N Hypothyroidism N Depression N COPD N Lung Disease N Developmental or Behavioral Disorders N Defects or Inherited Disease N Breast Problem N Anesthesia Complications N Headaches/Migraines N Varicose Veins N Anxiety Disorder N Muscle, Joint, or Bone Problems N Obesity Y Vision or Eye Problems Y Arthritis N Head Injury/Concussion N Polyps N Infertility N Mental Disorder N Congenital Anomalies N Acid Reflux (GERD) Y Cancer N Stroke N ADHD N Endometriosis N High Cholesterol Y Liver Disease N Headaches N Fibromyalgia N Kidney Disease N Heart Problems N Ear or Hearing Problems N Hospitalizations Y Thyroid Problems N GI Problems N Developmental Delay N Acne N Skin Problems N Eating Disorder N Anemia N Constipation N Bladder Problems Y Mental Illness N Ovarian Cancer N Diabetes N Bedwetting N Blood Transfusions N Seizures/Epilepsy N Heart Problems/Murmur N Tuberculosis N AIDS/HIV N Congestive Heart Failure (CHF) N Eczema N Diverticulitis N Abuse/Domestic Violence N Asthma N Allergies N Reflux/GERD Y Hepatitis N Heart Disease N Pulmonary Embolism N Hypertension Y Chicken Pox N Autism Spectrum Disorder (ASD) N Osteoporosis N Gynecological History Statement/Question Response Date of Last Pap Smear 08/30/2012 Most Recent Mammogram 04/09/2023 04/01/2013 Date of Last Colonoscopy 05/13/2016 Most Recent Bone Density 03/22/2020 06/14/2006 Obstetrics History GPAL:G 0 P 0 0 0 0 Immunizations Vaccine Type Date Status Note Provider Nam e and Address Organization Details Recorded Time Influenza, split virus, trivalent, preservative 8 completed Tiffanie potter [place] 11/27/2022 12:31:13 Tdap 8 completed Tiffanie potter [place] 11/27/2022 12:31:13 Influenza, split virus, trivalent, preservative 1 completed Tiffanie potter [place] 11/27/2022 12:31:13 zoster live 2 completed Tiffanie potter [place] 11/27/2022 12:31:13 Influenza, split virus, trivalent, preservative 2 completed Tiffanie potter [place] 11/27/2022 12:31:13 Influenza, high-dose, trivalent, PF 5 completed Tiffanie potter [place] 11/27/2022 12:31:13 Tdap 8 completed Tiffanie potter [place] 11/27/2022 12:31:13 Influenza, adjuvanted, trivalent, PF 9 completed Tiffanie potter [place] 11/27/2022 12:31:13 Influenza, high-dose, trivalent, PF 0 completed Tiffanie Lawrence null, [place] 11/27/2022 12:31:13 COVID-19, mRNA, LNP-S, PF, 30 mcg/0.3 mL dose 1 completed Tiffanie Lawrence null, [place] 11/27/2022 12:31:13 Influenza, adjuvanted, trivalent, PF 7 completed Tiffanie Lawrence null, [place] 11/27/2022 12:31:13 Influenza, adjuvanted, trivalent, PF 8 completed Tiffanie Lawrence null, [place] 11/27/2022 12:31:13 COVID-19, mRNA, LNP-S, PF, 30 mcg/0.3 mL dose 1 completed Tiffanie Lawrence null, [place] 11/27/2022 12:31:13 Influenza, high-dose, quadrivalent, PF 1 completed Tiffanie Lawrence null, [place] 11/27/2022 12:31:13 COVID-19, mRNA, LNP-S, PF, 30 mcg/0.3 mL dose 1 completed Tiffanie Lawrence null, [place] 11/27/2022 12:31:13 Influenza, adjuvanted, trivalent, PF 6 completed Tiffanie Lawrence null, [place] 11/27/2022 12:31:13 pneumococcal polysaccharide PPV23 5 completed Tiffanie Lawrence null, [place] 11/27/2022 12:31:13 Influenza, split virus, trivalent, PF 4 completed Tiffanie Lawrence null, [place] 11/27/2022 12:31:13 Pneumococcal conjugate PCV 13 6 completed Tiffanie Lawrence null, [place] 11/27/2022 12:31:13 Influenza, split virus, trivalent, preservative 1 completed Tiffanie Lawrence null, [place] 11/27/2022 12:31:13 COVID-19, mRNA, LNP-S, PF, 30 mcg/0.3 mL dose, drew-sucrose 2 completed Tiffanie Lawrence null, [place] 11/27/2022 12:31:13 Influenza, high-dose, quadrivalent, PF 2 completed Tiffanie Lawrence null, [place] 11/27/2022 12:31:13 zoster recombinant 2 completed Tiffanie Lawrence null, [place] [facility] 11/27/2022 12:31:13 COVID-19, mRNA, LNP-S, bivalent, PF, 50 mcg/0.5 mL or 25mcg/0.25 mL dose 2 completed Tiffanie Howard null, [place] [facility] 11/27/2022 12:31:13 zoster recombinant 2 completed Tiffanie Lawrence null, [place] 11/27/2022 12:31:13 Influenza, high-dose, quadrivalent, PF 3 completed Tiffanie Lawrence null, [place] 11/27/2022 12:31:13 COVID-19, mRNA, LNP-S, PF, 50 mcg/0.5 mL 3 completed Tiffanie Lawrence null, [place] 11/27/2022 12:31:13 SARS-COV-2 (COVID-19) vaccine, UNSPECIFIED 4 completed Tiffanie Lawrence null, [place] 10/29/2023 08:44:29 influenza, unspecified formulation 4 completed Tiffanie Lawrence null, [place] 10/26/2023 10:03:36 Influenza, high-dose, trivalent, PF 4 completed Tiffanietoshia Lawrence null, [place] [facility] 10/26/2023 10:03:36 COVID-19, mRNA, LNP-S, PF, 50 mcg/0.5 mL 4 completed Tiffanie potter [facility] 10/29/2023 08:44:29 Pneumococcal conjugate PCV20, polysaccharide [id number] conjugate, adjuvant, PF 4 completed URI Fuentes, [place] [facility] 04/26/2024 11:32:05 RSV, recombinant, protein subunit RSVpreF, adjuvant reconstituted, 0.5 mL, PF 4 completed URI Fuentes, [place] 04/26/2024 11:32:05 Past Encounters Encounter ID Performer Location Encounter Start Date Encounter Closed Date Diagnosis/Indication Diagnosis SNOMED-CT Code Diagnosis ICD10 Code Diagnosis Note [id number] [facility] [address] [facility] [place] [address] 12/31/2006 00:00:00 [id number] [facility] [address] [facility] [place] [address] 03/30/2007 00:00:00 [id number] [facility] [address] [facility] [place] [address] 03/30/2007 00:00:00 [id number] [facility] [address] [facility] [place] [address] 05/30/2007 00:00:00 [id number] [facility] [address] [facility] [place] [address] 05/30/2007 00:00:00 [id number] [facility] [address] [facility] [place] [address] 02/23/2006 00:00:00 [id number] [facility] [address] [facility] [place] [address] 02/23/2006 00:00:[address] [id number] [facility] [address] [place] [address] 07/04/2007 00:00:00 [id number] [facility] [address] [place] [address] 07/04/2007 00:00:00 [id number] [facility] [address] [facility] [address] [place] [address] 11/07/2007 00:00:00 [id number] [facility] [address] [facility] [address] [place] [address] 11/07/2007 00:00:00 [id number] [facility] [address] [facility] [place] [address] 12/28/2007 00:00:00 [id number] [facility] [address] [facility] [place] [address] 12/28/2007 00:00:00 [id number] [facility] [address] [facility] [place] [address] 12/28/2007 00:00:00 [id number] [facility] [address] [facility] [place] [address] 04/02/2008 00:00:00 [id number] [facility] [address] [facility] [place] [address] 05/22/2008 00:00:00 [id number] [facility] [address] [facility] [place] [address] 05/22/2008 00:00:00 [id number] [facility] [address] [facility] [place] [address] 10/11/2008 00:00:00 [id number] [facility] [address] [facility] [place] [address] 04/09/2009 00:00:00 [id number] [facility] [address] [facility] [place] [address] 04/09/2009 00:00:00 [id number] [facility] [address] [place] [address] 04/09/2009 00:00:00 [id number] [facility] [address] [place] [address] 11/26/2009 00:00:00 [id number] [facility] [address] [place] [address] 11/26/2009 00:00:00 [id number] [facility] [address] [place] [address] 11/26/2009 00:00:00 [id number] [facility] [address] [place] [address] 02/13/2010 00:00:00 [id number] [facility] [address] [facility] [address] [place] [address] 09/24/2010 00:00:00 [id number] [facility] [address] [facility] [address] [place] [address] 09/24/2010 00:00:00 [id number] [facility] [address] [facility] [address] [place] [address] 09/24/2010 00:00:00 [id number] [facility] [address] [facility] [address] [place] [address] 09/24/2010 00:00:00 [id number] [facility] [address] [place] [address] 03/31/2011 00:00:00 [id number] [facility] [address] [place] [address] 03/31/2011 00:00:00 [id number] [facility] [address] [facility] [place] [address] 10/06/2011 00:00:00 [id number] [facility] [address] [facility] [address] [place] [address] 10/06/2011 00:00:00 [id number] [facility] [address] [place] [address] 03/16/2012 00:00:00 [id number] [facility] [address] [place] [address] 03/16/2012 00:00:00 [id number] [facility] [address] [place] [address] 04/04/2012 00:00:00 [id number] [facility] [address] [facility] [place] [address] 04/04/2012 00:00:00 [id number] [facility] [address] [facility] [place] [address] 10/11/2012 00:00:00 [id number] [facility] [address] [facility] [place] [address] 06/06/2013 00:00:00 [id number] [facility] [address] [facility] [place] [address] 06/06/2013 00:00:00 [id number] [facility] [address] [facility] [place] [address] 08/31/2013 00:00:00 [id number] [facility] [address] [facility] [place] [address] 08/31/2013 00:00:00 [id number] [facility] [address] [facility] [place] [address] 08/31/2013 00:00:00 [id number] Nahid Geiger MD Main Office [address] [facility] [address] [place] [address] 11/14/2013 15:02:44 11/14/2013 16:11:48 Adult health examination 294058352 Needs infl uenza immunization 914945694 Spinal stenosis 79914169 Hyperlipidemia 76118925 Fatigue 66851652 Body mass index 30+ - obesity 455685176 [id number] Nahid Geiger MD Main Office [address] [address] [place] [address] 06/07/2014 08:55:20 06/07/2014 09:33:10 Hyperlipidemia 81899663 Spinal stenosis 95473391 S/P decompress ion in 03/2014. [id number] Nahid Geiger MD Main Office [address] [address] [place] [address] 12/06/2014 09:03:40 12/06/2014 10:14:07 Adult health examination 719071727 Z00.00 Gastroesop hageal reflux disease 714662774 K21.9 Administra tion of pneumococcal vaccine 85155065 Z23 Hyperlipidemia 61032812 E78.5 Fatigue 48965603 R53.83 Arthritis of acromioclavicular joint 084977517 M13.811 Carpal rommel moose syndrome 75830315 G56.01 Menopause present 816616 006 Z78.0 Elevated blood-pressure reading without diagnosis of hypertension 849741860 R03.0 Will monitor home readings [id number] Nahid Geiger MD Main Office [address] [address] [place] [address] 12/19/2015 13:47:42 12/19/2015 15:19:40 Adult health examination 475247950 Z00.00 Screening for malignant neoplasm of colon 100792006 Z12.11 Screening for malignant neoplasm of lung 247709003 Z12.2 Elevated blood-pressure reading without diagnosis of hypertension 043058538 R03.0 Blood pressure in the pre-hypert ensive range. Discussed management of cardiovasc ular risks and strategies to control BP. Administra tion of pneumococcal vaccine 23843869 Z23 [id number] Nahid Geiger MD Main Office [address] [address] [place] [address] 07/01/2016 10:24:19 07/01/2016 11:33:32 Elevated blood-pressure reading without diagnosis of hypertension 834898540 R03.0 Blood pressure in the pre-hypert ensive range. Discussed management of cardiovasc ular risks and strategies to control BP. Hyperlipidemia 03970414 E78.5 Fatigue 11188335 R53.83 [id number] Bryant Beauchamp PA-C Main Office [address] [address] [place] [address] 05/25/2017 09:43:44 05/25/2017 11:15:52 Adult health examination 750344198 Z00.00 Hyperlipidemia 14728023 E78.00 Continue current meds. Continue low fat diet . WEight loss is recommende d. Recheck fast. labs. Administra tion of tetanus vaccine 974412973 Z23 Essential hypertension 11184745 I10 Start diuretic. Test BP at and return in 4 weeks with BP log or meter. Body mass index 30+ - obesity 085411313 E66.9 Z68.35 Z68.31 Osteopenia 547606429 M85 .80 Spinal dimitri nosis of lumbar region 48667770 M48.061 stable Screening for malignant neoplasm of breast 576483165 Z12.31 [id number] Bryant Beauchamp PA-C Main Office [address] [address] [place] [address] 06/22/2017 10:21:59 06/22/2017 11:01:15 Essential hypertension 56770233 I10 Stable control now on HCTZ. PT. had labs drawn this am. Will continue low sodium diet and increase exercise activity as discussed. F/u for BP recheck in 4 m. Fatigue 13455274 R53.83 Vit D levels drawn this am. Menopause present 998104 006 N95.1 [id number] Bryant Beauchamp PA-C Main Office [address] [address] [place] [address] 11/15/2017 11:30:06 11/15/2017 12:32:46 Hypertensive disorder 09501735 I10 STable HTN on meds. Continue low sodium diet and repeat labs. Stress-rel ated problem 320827599 F43.9 PQH-2 and EDDIE performed and appeared to be very low scoring. Pt.is advised to see counselor at this point and notify me if symptoms change or worsen. Body mass index 30+ - obesity 651740697 E66.9 Z68.35 [id number] Nahid Geiger MD Main Office [address] [address] [place] [address] 12/13/2018 10:58:32 12/13/2018 12:04:00 Adult health examination 418800976 Z00.00 vaccines are utd. Hepatitis C screening 41 8810199 Z11.59 Hypertensive disorder 38 807436 I10 BP is elevated today. PT. is advised to test at home daily and return with meter in 4-6 weeks to f/u. Hyperlipidemia 10371187 E78.00 Continue current meds. Continue low fat diet . WEight loss is recommende d. Recheck fast. labs. Insomnia 201876243 F51.0 9 continue gabapentin Impaired f asting glycemia 397791353 R73.01 Hearing loss 15898488 H9 1.93 refer for hearing test. Spinal stenosis 04325162 M48.00 stable. Gastroesop hageal reflux disease 931637020 K21.9 Takes PPI daily. MIght need repeat EGD at a time of next colonoscop y. 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 Screening for malignant neoplasm of cervix 638455697 Z12.4 Obesity 989049924 E66.9 [id number] Nahid Geiger MD Main Office [address] [facility] [address] [facility] [place] [address] 12/28/2018 10:05:13 12/28/2018 10:52:57 Tight chest 06843958 R07.89 normal EKG, chest pain related to shingles Essential hypertension 50167479 I10 Stable control now on HCTZ and Lisinopril at home. Elevated today due to postherpet ic pain . Herpes zoster 2274104 B0 2.9 Start antiviral . PT. is on Gabapentin 300 mg for her back pain. Advised to increase to 600 mg at HS.If pain persists after 3-5 days, increase to 300 mg in the am and 600 at HS. F/u 2 weeks as needed. 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 Start amlodipine -benzapril 5-10 mg daily and continue HCTZ. Test BP through [facility] and return in 6 weeks for f/u. Repeat labs 2 days prior to the visit. Spinal dimitri nosis of lumbar region 06921910 M48.061 Pt. lapsed her gabapentin prescripti on , so we will restart at 600 mg daily for 5 days, then increase to 1 in the am and 1/2 in the pm. Pt. is advised to try with smallest possible dose due to renal insufficie ncy. Renal insufficiency 7231 20928 N28.9 Avoid NSAIDs. Retest labs in 6 weeks. Increase hydration. Consider renal consult. [id number] Lety Doll MD Main Office [address] [address] [place] [address] 11/01/2019 09:13:05 11/01/2019 12:53:36 [id number] Lety Doll MD [facility] [address] [address] [place] [address] 11/02/2019 09:01:03 11/03/2019 11:10:13 Hyponatremia 86143947 E87.1 sodium on day of discharge 124, will recheck. Pain of mu ltiple joints 77938228 M25.50 hx of arthritis, she is seen by rheum but is havign a lot of increased pain. Gastroesop hageal reflux disease 306469407 K21.9 increase omeprazole to BID for now, check bloodwork. Unintentio nal weight loss 784221303 R63.4 15 lbs weight loss in last 3-4 months, decreased appetite. Intermitte nt confusion 201679256 R41.0 she is on 600mg gabapentin BID. will discuss with PCP, ? decrease dosing and start trazodone for sleep? [id number] Nahid Geiger MD Main Office [address] [address] [place] [address] 11/24/2019 09:57:36 11/24/2019 10:35:05 [id number] Lety Doll MD Main Office [address] [address] [place] [address] 12/01/2019 12:54:30 12/01/2019 14:08:18 Spinal stenosis in cervical region 87707062 M48.02 was having severe pain upon admission and overmedica ting gabapentin at first admission. will refer for outpatient consult. Hallucinations 5339262 R 44.3 resolved. feeling better, does not remember 1st hospital visit and being discharged ,also does not recall most of thr 2nd hospital stay. Hyponatremia 12840021 E8 7.1 sodium low thought to be SIADH but resolved with urea. 140 on 11/22. she has an order for repeat Cranial ne rve disorder 17471667 G52.9 inflammati on of cranial nerves on MRI no clear cause found. Sleep apnea 40689215 G47 .30 Essential hypertension 47395701 I10 [id number] Nahid Geiger MD Main Office [address] [facility] [address] [facility] [place] [place] [address] 01/02/2020 10:55:38 01/02/2020 12:19:05 Adult health examination 505449557 Z00.00 vaccines are utd. Screening for malignant neoplasm of breast 046220612 Z12.31 Hyperlipidemia 01104242 E78.00 Increase Atorvastat in to 40 mg. Repeat fasting lipids in 6 weeks. 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 Martinez. Pt. takes TYlenol PRN for pain. Body mass index 25-29 - overweight 855310794 E66.3 Z68.27 Impaired f asting glycemia 281761752 R73.01 continue working and weight loss. Hypertensi ve renal disease 43452260 I12.9 BP is at goal on medication s. Chronic ki dney disease stage 2 902283197 N18.2 Gastroesop hageal reflux disease 772034147 K21.9 Takes PPI daily. MIght need repeat EGD at a time of next colonoscop y. Insomnia 541484789 F51.0 9 continue mirtazapin e. Dependent edema 50479000 4 R60.0 probably due to amlodipine . Pt. is advised to control with sodium reduction. Carpal rommel moose syndrome 29390834 G56.02 stable at this point/ [id number] Bryant Beauchamp PA-C [facility] [address] [place] [address] 04/03/2020 08:58:32 04/03/2020 11:16:47 Hypertensive renal disease 70949466 I12.9 BP is above goal due to amlodipine lowered to 5 mg . PT. has minimal edema. Continue 5 mg and add HCTZ 25 mg daily. Continue daily amand PM bp monitoring via [facility] and f/u 4 weeks. Chronic ki dney disease stage 2 354557052 N18.2 [id number] Keo Swartz MD Main Office [address] [place] [address] 11/05/2020 14:34:31 11/05/2020 15:15:54 Low back pain 938690129 M54.5 r/o UTI, pylonephri tis Hyperlipidemia 11577741 E78.00 check fasting labs. Impaired f asting glycemia 042786655 R73.01 continue working and weight loss.retes t A1c. Chronic ki dney disease stage 2 068378070 N18.2 [id number] Keo Swartz MD Main Office [address] [place] [address] 11/27/2020 08:20:44 11/27/2020 16:40:44 Lumbar radiculopathy 660544786 M54.16 At this point due to radicular symptoms worsening , we will obtain a new MRI and depending on findings refer either to pain management /physiatry or back to Dr. Balbuena . Pt. will take meloxicam 15 mg daily and supplement with ES Tylenol for pain. [id number] Eric Gu[place] MD Main Office [address] [facility] [address] [place] [address] 04/30/2021 14:54:44 04/30/2021 15:56:18 Adult health examination 381158028 Z00.00 vaccines are utd. recom to get shingrix. Spinal dimitri nosis of lumbar region 55579679 M48.061 F/u with Dr. Martinez and Dr. Calvin. Urge incon tinence of urine 82629220 N39.41 F/u with urologist. Osteopenia 160543396 M85 .80 repeat DEXA scan in 2022 Impaired f asting glycemia 735427373 R73.01 continue working and weight loss.retes t A1c. Chronic ki dney disease stage 2 997779092 N18.2 Varicella vaccination 68 542684 Z23 Hypertensi ve renal disease 90570769 I12.9 Continue current meds. Low sodium diet and test BP at least 3 times weekly by [facility]. F/u 3 m. repeat BMP and magnesium. Gastroesop hageal reflux disease 374998003 K21.9 Takes PPI daily. Hyperlipidemia 36360182 E78.00 continue medication s. Repeat lipids in October. Body mass index 30+ - obesity 130568980 Z68.31 Obesity 391979877 E66.9 [id number] Eric Gupta MD Main Office [address] [facility] [address] [place] [address] 09/05/2021 10:26:48 09/05/2021 11:15:07 Hypertensive renal disease 69205397 I12.9 Increase amlodipine to 10 mg dialy and continue HCTZ 25 mg. Repeat labs today. . F/u 3 m. Chronic ki dney disease stage 2 779293034 N18.2 [id number] Bryant Beauchamp PA-C Main Office [address] [facility] [address] [place] [address] 12/02/2021 10:32:14 12/02/2021 11:20:50 Obstructive sleep apnea syndrome 25870395 G47.33 Having an at home sleep study done at the end of the month. Hypertensi ve renal disease 25305988 I12.9 [facility] bp data reviewed with pt. BP appears stable to continue current medication s. Continue amlodipine 10 mg daily and HCTZ 25 mg. Continue low sodium diet. F/u 3 m. Repeat cmp and magnesium today. Chronic ki dney disease stage 2 310208351 N18.2 repeat labs. [id number] Eric Gupta MD Main Office [address] [facility] [address] [place] [address] 03/03/2022 10:44:58 03/03/2022 11:21:41 Hypertensive renal disease 51982767 I12.9 [facility] bp data reviewed with pt. BP appears stable to continue current medication s. Continue amlodipine 10 mg daily and HCTZ 25 mg. Continue low sodium diet. F/u 3 m. Repeat bmp and magnesium. Chronic ki dney disease stage 2 082369964 N18.2 repeat labs. Hyperlipidemia 35684609 E78.00 Repeat lipids prior to next visit. Impaired f asting glycemia 755138623 R73.01 continue working and weight loss.retes t A1c. Osteopenia 642470907 M85 .80 repeat DEXA scan in 2022 Urge incon tinence of urine 08161515 N39.41 Check U/A and culture. Refer to urogyn. [id number] Eric Gu[place] MD Main Office [address] [place] [address] 05/12/2022 09:54:52 05/12/2022 10:32:34 Pre-surgery evaluation 942029752 Z01.818 Pt. clinically stable to undergo bilateral cataract procedure under MAC anesthesia . Bilateral cataracts 9572 2003 H26.9 Hypertensi ve renal disease 86777136 I12.9 stable Chronic ki dney disease stage 2 842090840 N18.2 [id number] Eric [place] MD Main Office [address] [place] [address] 06/13/2022 08:00:58 06/13/2022 09:33:35 Upper respiratory infection 56072389 J06.9 Tylenol 15mg/kg for pain or fever q6h.Throat Lozengessa lt water gargleAdeq uate hydration enforcedSa line spraysHumi difier use enforced.R est advised.Ad vised to invest in thermomete r if fever >100.4 to call will start abx.Likely viral etiology, if shortness of breath at rest will start abx.Advise d viral can take up to 2 weeks and cough 8 weeks to go away.Lin libby cabellol sentAdvise d also can use honey for cough.Advi sed to be careful with tylenol as also in nyquil and dayquil, Advise to be careful with Pratibha D and switch to regular Pratibha as she has dx of htn and similar class of medication also in Dayquil/Ny quil.Will have triage nurse follow up Wednesday on sx as well, if no better, consider office visit to examin lungs/need for abx. [id number] Eric Gupta MD Main Office [address] [address] [place] [address] 06/16/2022 11:12:48 06/16/2022 12:16:09 Upper respiratory infection 12597021 J06.9 Tylenol 15mg/kg for pain or fever q6h.Throat Lozengessa lt water gargleAdeq uate hydration enforcedSa line spraysHumi difier use enforced.R est advised.Ad vised to invest in thermomete r if fever >100.4 to call will start abx.Likely viral etiology, if shortness of breath at rest will start abx.Advise d viral can take up to 2 weeks and cough 8 weeks to go away.Lin pate sentAdvisshayne d also can use honey for cough.Advi sed to be careful with tylenol as also in nyquil and dayquil, Advise to be careful with Pratibha D and switch to regular Pratibha as she has dx of htn and similar class of medication also in Dayquil/Ny quil.Will have triage nurse follow up Wednesday on sx as well. Acute sinusitis 60752727 J01.90 Impacted c erumen in right ear 8614034650 326039 H61.21 [id number] Eric [place] MD Main Office [address] [address] [place] [address] 08/11/2022 14:32:39 08/11/2022 15:34:24 Adult health examination 739232576 Z00.00 vaccines are utd Advance di rective discussed with patient 576234930 Z71.89 Discussed and signed. Hypertensi ve renal disease 50358990 I12.9 stable Hyperlipidemia 35293856 E78.00 Repeat lipids prior to next visit. Chronic ki dney disease stage 2 541199492 N18.2 Pt has appointmen t scheduled for October f asting glycemia 291424288 R73.01 continue working and weight loss. retest A1c. Gastroesop hageal reflux disease 608981144 K21.9 Takes PPI daily. Stable Osteopenia 602431424 M85 .80 repeat DEXA scan in 2022 Obstructiv e sleep apnea syndrome 91357494 G47.33 Pt has not been given a CPAP. It is on back order. Urge incon tinence of urine 67944228 N39.41 Continue taking Myebetriq Abnormal weight gain 161 363377 R63.5 check TSH Body mass index 25-29 - overweight 777912168 E66.3 Z68.28 continue working on more regular exercise activity and low calorie diet. Hearing loss 50896451 H9 1.93 refer for hearing test. [id number] Lety Doll MD Main Office [address] [place] [address] 09/01/2022 13:22:05 09/01/2022 14:00:08 Muscle spasm of cervical muscle of neck 9577785663 04 M62.838 Heat/ ice 20-30 mins at a time 3-4 times per day. prednisone burst x 5 days, flexeril as needed at bedtime- no driving or alcohol with med. gentle stretching as tolerated. Will refer to PT for neck/ shoulder. Chronic ki dney disease stage 2 [id number] N18.2 Osteopenia [id number] M85 .80 Spinal dimitri nosis of lumbar region 35616317 M48.061 [id number] Lety Doll MD [facility] [address] [address] 09/30/2022 09:09:22 09/30/2022 09:47:59 Muscle spasm of cervical muscle of neck [id number] 04 M62.838 Heat/ ice 20-30 mins at a time 3-4 times per day. flexeril as needed at bedtime- no driving or alcohol with med. gentle stretching as tolerated. Low back pain 127405047 M54.50 [id number] Keo Swartz MD Main Office [address] [address] 11/26/2022 15:46:12 11/26/2022 16:11:58 Spinal stenosis of lumbar region 65826973 M48.061 s/p sx c dr nicolas ~ 1.5 yrs ago - encouraged pt to resume PT as diravoid nsaids d/t age/ckdcon t prn m relaxerrec alt ice/heat, cont hep, lumbar pillowcont tyl 500mg 1-2 tabs up to 3x/day prntried gbn in past - initially helpful, but then tolerant to it - didn't help any more so stoppedtrrajesh guzman of lyricacont f/u c pmr - dr. calvin - last seen 05.14, rec PT = ? may need neural stimulator [id number] Eric Gupta MD Main Office [address] [facility] [address] [place] [address] 12/11/2022 09:51:16 12/11/2022 11:31:55 Hypertensive renal disease 00807346 I12.9 stable by telemonito ring , continue current meds , lower dietary sodium. F/u 3 m. PT. was advised to increase frequency of blood pressure testing to at least every other day. Chronic ki dney disease stage 2 602784900 N18.2 encouraged to have blood draw this week. Impaired f asting glycemia 699856963 R73.01 retest A1c. cotninue low carb diet. Spinal dimitri nosis of lumbar region 08042761 M48.061 F/u with Dr. Calvin. [id number] Eric Gupta MD Main Office [address] [facility] [address] [place] [address] 03/24/2023 13:09:20 03/24/2023 13:36:56 Hypertensive renal disease 51760520 I12.9 stable by telemonito ring , continue current meds , lower dietary sodium. PT. was advised to increase frequency of blood pressure testing to at least every other day. F/u in July. repeat bmp and magnesium in 6 weeks. Chronic ki dney disease stage 2 215913239 N18.2 F/u with renal. microalbum in is normal. Impaired f asting glycemia 794556027 R73.01 continue low carb diet. [id number] Eric Gupta MD Main Office [address] [facility] [address] [facility] [place] [address] 07/09/2023 10:36:18 07/09/2023 11:08:55 Hypertensive renal disease 85887265 I12.9 stable by telemonito ring , continue current meds , lower dietary sodium. Repeat bmp and magnesium levels. F/u 3 m. Chronic ki dney disease stage 2 591130010 N18.2 F/u with renal. microalbum in is normal. 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 Spinal dimitri nosis of lumbar region 52261013 M48.061 S/p nerve stimulator implantati on. [id number] Keo Swartz MD Main Office [address] [facility] [address] [facility] [place] [address] 12/28/2023 13:20:32 12/28/2023 14:39:45 Body mass index 25-29 - overweight 091631442 E66.3 Z68.27 Continue working on more regular exercise activity and low calorie diet. Administra tion of pneumococcal vaccine 73645543 Z23 Dupuytren' s disease of palm 235815091 M72.0 refer to hand specialist . Arthritis of acromioclavicular joint 686469581 M13.819 stable. 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 Adult heal th examination 216483893 Z00.00 Recom Prevnar 20 and RSV vaccines in the pharmacy. refer to fall risk PT as STEADI risk screen is 8. Hypertensi ve renal disease 78011526 I12.9 Stable by telemonito [facility], accu health data reviewed and discussed with pt. Occasional bp elevations , but are not consistent . Overall stable on current treatment. F/u 4 m. Chronic ki dney disease stage 2 277846102 N18.2 F/u with renal - has an appointmen t coming up in February. Microalbum in is normal. Hyperlipidemia 91630312 E78.00 Most recent lipid panel WNL 11/2022. Impaired f asting glycemia 082643013 R73.01 Continue low carb diet and weight loss. Repeat fasting labs and A1c. Obstructiv e sleep apnea syndrome 50078602 G47.33 Uses CPAP nightly. Osteopenia 744191325 M85 .80 Dexa scan done 2022 - showed osteopenia . Pt. is on oral Vit D. 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 Spinal dimitri nosis of lumbar region 10570008 M48.061 S/p nerve stimulator implantati on. Urge incon tinence of urine 17291978 N39.41 Continue taking Myebetriq. Gastroesop hageal reflux disease 085640481 K21.9 Takes PPI daily. Stable Hearing loss 31091330 H9 1.93 Had hearing test earlier this year - now has bilateral hearing aids. [id number] Lety Doll MD Main Office [address] [address] [place] [address] 10/18/2023 10:11:44 10/18/2023 10:31:47 Upper respiratory infection 14862983 J06.9 refill per pt request Spinal dimitri nosis of lumbar region 89980557 M48.061 refill per pt request Dysuria 83147932 R30.0 x1 week of burning sensation with urination- associated symptoms of increase urinary frequency and cloudy appearance -denies of any fever, chills, abdominal/ pelvic pain, hematuria- pt unable to provide urine sample in office-[facility] send out urinalysis with reflex to the lab for pt to drop off urine [id number] Lety Doll MD Main Office [address] [address] [place] [address] 12/02/2023 14:56:59 12/02/2023 15:26:23 Viral upper respiratory tract infection 054877300 J06.9 1.5 weeks of symptoms; cough, congestion , fatigue, sob-denies of any fever, chills, n/v/d, chest pain-has done conservati ve measuremen ts-notes of improvemen ts in symptoms since onset; the cough, congestion , and fatigue have significan tly improved-d iscussed to continue with conservati ve measuremen ts, likely viral in origin-rosemary e covid test is negative Expiratory wheezing 9763 007 R06.2 -mild expiratory wheezing in the upper left lobe, no crackles/r aleswill provide albuterol inhaler prn [id number] Lety Doll MD Main Office [address] [address] [place] [address] 04/26/2024 11:24:41 04/26/2024 12:05:02 Hypertensive renal disease 80151381 I12.9 Telemonito ring blood pressure log reviewed with pt. Stable by telemonito ring and is stable on current meds. Pt. is advised to continue current treatment plan , DASH diet and work on weight loss. Repeat cmp and microalbum in as well as lipids. F/u 4 m. Chronic ki dney disease stage 2 490533759 N18.2 F/u with renal. Microalbum in was normal in 12/14, will repeat albumin/cr eatinine ratio. Hyperlipidemia 97920554 E78.00 Continue atorvastat in and low fat diet. Repeat fasting lipids. Impaired f asting glycemia 454307674 R73.01 Continue low carb diet and weight loss. Repeat fasting labs and A1c. [id number] Lety oDll MD Main Office [address] [place] [address] 06/06/2024 08:58:17 06/06/2024 09:37:50 Strain of rotator cuff of shoulder 754979211 S46.011A Recommend antiinflam matory and icing 3 times per day 15 minutes each time. If no improvemen t in 2 weeks, pt was advised to be seen at orthopedic urgent care clinic for cortisone injection. Health Concerns Section Related Observation LastModified by Organization Detai ls LastModified Time None Recorded Concern Status LastModified by Organization Details LastModified Time None Recorded Advance Directives Directive Y: Claribel Mejia Payers Encounter Date Sequence Insurance Name Policy Number Policy Kwon Covered Member ID Kwon Member ID Guarantor Name 10/18/2023 1 MEDICARE B-[place]: [facility] [id number] Lesa [facility] 10/18/2023 2 [facility] UNICARE [id number] 2 [facility] [id number] Lesa [facility] 12/02/2023 1 MEDICARE B-[place]: [facility] [id number] Lesa [facility] 12/02/2023 2 [facility] [employer] [id number] 2 [facility] [id number] Lesa [facility] 12/28/2023 1 MEDICARE B-[place]: [facility] Lesa Mejia [id number] Lesa Mejia 12/28/2023 2 [facility] [id number] 2 Lesa Mejia [id number] Lesa Mejia 04/26/2024 1 MED[place]: [facility] Lesa Mejia [id number] [facility] 04/26/2024 2 [facility] [id number] 2 Lesa Mejia [id number] Lesa Mejia 06/06/2024 1 MEDIC[place]: [facility] Lesa Mejia [id number] Lesa Mejia 06/06/2024 2 [facility] [id number] 2 Lesa Mejia [id number] Lesa Mejia Notes Date Note Type Note Provider Name and Address Organization Details Recorded Time 10/18/2023 text/html Lesa is a 77y r old F who presents for symptoms of UTI x1 week. Reports of having a burning sensation towards the end of her stream, increase urinary frequency, and a cloudy appearance in the urine. Denies of any blood in the urine, pelvic/abdominal pain, fever, chills, fatigue. COLTEN GARCIA [address], [address], [facility] 10/18/2023 10:33:46 12/02/2023 text/html Lesa is a 78y r old F who presents for URI symptoms x1.5 weeks. Reports of initially having a cough, congestion, and fatigue. Has been completing conservative measurements and reports of feeling improvements since symptom onset. Reports the cough, congestion, and fatigue have almost completely resolved. Is experiencing occasional SOB throughout the day. COLTEN GARCIA [address], [address], [facility] 12/02/2023 15:29:42 12/28/2023 text/html Medicare Annual Wellness VisitReported bypatient.Diet and Nutrition:healthy diet; discussed portion control; discussed diet improvement Fracture Risk:no history of fractures Physical Activity:exercises on a regular basis; discussed weightbearing activities; discussed exercise habits; No longer sees PT after back implant - didn't find that it was beneficial anymore. Depression Risk:never feels sad, empty, or tearful; no loss of interest in activities; no significant changes in weight; no sleep disturbances or insomnia; no agitation; no loss of energy; no feelings of worthlessness or guilt; no thoughts of suicide; no history of depression; no history of mood disorders Orientation:no disorientation to time; no disorientation to date; no disorientation to place Concentration and Memory:no decreased concentrating ability; no memory lapses or loss;forgetting words; Pt reports that she will be in the middle of a sentence and will forget her words. Speech/Motor difficulties:no speech difficulties; no difficulty expressing formulated concepts; no difficulty with fine manipulative tasks; no difficulty writing/copying; no slowed reaction time; does not knock things over when trying to pick them up Hearing:wears hearing aids; Saw youth officer earlier this year. Vision:no vision problems; Had cataract surgery in the past - no issues currently. Activities of Daily Living:able to bathe with limited or no assistance; able to contol urination and bowels; able to dress with limited or no assistance; able to feed self with limited or no assistance; able to get out of chair or bed with limited or no assistance; able to groom with limited or no assistance; able to toilet with limited or no assistance Instrumental Activities of Daily Living:able to do house work with limited or no assistance; able to grocery shop with limited or no assistance; able to manage medications with limited or no assistance; able to manage money with limited or no assistance; able to prepare meals with limited or no assistance; able to use the phone with limited or no assistance Falls Risk Assessment:no dizziness/vertigo Home Safety:no unsafe shilpa hazzards; no unsafe stairs; no unsafe gas appliances; working smoke/CO detectors; wears protective head gear for biking/high velocity; use of seatbelts; no vision or hearing loss while driving; no fire arms; has hand bars in the bathroom/shower; good lighting in the home 78 year old female for annual Medicare wellness visit.Lumbar stenosis. Pt is seeing Dr. Calvin as needed. Cortisone shots are no longer helping. She had an implant placed within the last year and states that it has slightly helped with her symptoms.Colonoscopy was in 2016 with 10 year recall.Vaccines: up to date on all vaccinesMammogram was normal in April of 2023. Pt. was discharged from [facility] care.GERD stable with PPI.Last bone density was in 2022 with osteopenia. Pt had normal Vit D level roughly 1 year ago. No fractures within the last year, but reports that she has fallen multiple times.Labs were stable in July.Only concern today is she is requesting to see an orthopedic hand specialist for her Dupuytren's Contracture. She states that it flares up and she cannot close her hands at times. She has gotten cortisone shots in the past which helped, but it has been several years and she is wondering if she needs another referral or not if she has been a patient with them in the past for carpal tunnel. Bryant Beauchamp PA-C [address] [address], [place], [address], [facility] 12/28/2023 14:51:36 04/26/2024 text/html Hypertension F/UReported bypatient.Associated Symptoms:no dizziness; no lightheadedness; no chest pain; no shortness of breath; no palpitations; no edema; no calf pain with exertion Lifestyle:limiting/jacob iding salt;not exercising regularly Medications:taking medications as directed; no side effects from medication; checks blood pressure at home, range:Notes:Pt. is on [employer] telemonitoring. Readings reviewed and were mostly under 140/90, some outliers but not of significant concern. Blood pressure in office is at goal. 78 year old female for f/u on hypertension. Pt. was diagnosed with R. breast cancer and had lumpectomy with adjuvant radiation therapy.Lumbar stenosis s/o Nervo CSC implant in April followed closely by pain management. So far stable post implant placement. She is currently taking amlodipine 5 mg, HCTZ 25 mg and losartan 100 mg. Bryant Beauchamp PA-C [address] [facility] [address], [place], [address], [facility] 04/26/2024 12:52:12 06/06/2024 text/html 78 year old fema le c/o anterior R. shoulder pain started after she had hand surgery. Pain is worse with rotation and at night. Bryant Beauchamp PA-C [address] [facility] [address], [place], [address], [facility] 06/06/2024 11:29:04 OBGyn Episode No OBEpisode recorded.
== END 2024-06-29 10:26 | disposition home or self-care (01) ==
LOC: HO.PMC 09:49
PROVIDERS: PCP Physician Assistant Medical; Visit Provider Anesthesiology
DX: M16.11 Unilateral primary osteoarthritis, right hip (principal); M25.551 Pain in right hip; M51.369 Other intervertebral disc degeneration, lumbar region without mention of lumbar back pain or lower extremity pain; M54.16 Radiculopathy, lumbar region; M96.1 Postlaminectomy syndrome, not elsewhere classified; M54.50 Low back pain, unspecified; G89.29 Other chronic pain
CPT/HCPCS: 99213

== ENCOUNTER → 2024-06-29 09:48 | Outpatient (BNVA) | payer MEDICARE, OTHER, SELFPAY | PROVIDERS: PCP Physician Assistant Medical; Visit Provider Anesthesiology | DX: M16.11 Unilateral primary osteoarthritis, right hip (principal); M51.360 Other intervertebral disc degeneration, lumbar region with discogenic back pain only; M54.16 Radiculopathy, lumbar region; M96.1 Postlaminectomy syndrome, not elsewhere classified; G89.29 Other chronic pain; R10.31 Right lower quadrant pain | CPT/HCPCS: 99212 ==

== ENCOUNTER 2024-07-14 05:47 | Day surgery (SDC) | payer MEDICARE, OTHER, SELFPAY ==
[2024-07-12 13:21] VITALS: BMI 31.1
--- OUTSIDE RECORDS SUMMARY | 2024-07-13 10:27 | XMS_ITS | Clinical Summary ---
Author Organization [facility] Address [address] [place] [address] Care Team Providers Care Sheet Metal Installer Name Role Phone Nahid Geiger MD Primary Care Provider [phone] Social History Tobacco Use Types Packs/Day Years [...] age to complete this topic Care Teams Sheet Metal Installer Relationship Specialty Start Date End Date Nahid Geiger MD [address] [address] PCP - General Internal Medicine 09/19/19
--- OUTSIDE RECORDS SUMMARY | 2024-07-13 10:27 | XMS_ITS | Continuity of Care Document ---
Author Organization [facility] Kait venita Address [address] [place] [address] [address] [place] [address]- Care Team Providers Care Grill Associate Name Role Phone Natalie Fontana Primary Care Physician Encounter [facility] Date(s): 06/12/24 - 07/12/24 [facility] [address] [id number] Encounter Type: Triage Allergies, Adverse Reactions, Alerts Substance Criticality Severity Reaction Reaction Severity Status Pollen sneezing Active Immunizations Given and Recorded Vaccine Date Status Refusal Reason influenza virus vaccine, inactivated 1 11/10/19 Gi patti 1Early/Late Reason: Med Not Available Medications Acetaminophen 0 Refills, Maintenance, 05/13/22 9:32:00 AM EDT, Partial fill upon patient request if the prescription is for a schedule II opioid drug. Start Date: 05/13/22 Status: Ordered Repeat number: 1 amLODIPine 5 mg oral tablet 10 mg, 2, tablet, By Mouth, Daily, # 60 tablet, Refills 0, Tot. Refills 0, Maintenance, 11/23/19 11:02:00 AM EDT, Route to Pharmacy Electronically, [facility], 160, cm, 11/23/19 5:01:00 EDT, Height, 73.3, kg, 11/08/19 21:42:00 EDT, Dry Weight Start Date: 11/23/19 Status: Ordered Quantity: 60.0 Unit: tablet Repeat number: 1 atorvastatin 40 mg oral tablet 1 tablet = 40 mg, By Mouth, Daily at bedtime, 0 Refills, Maintenance, 09/12/21 11:13:00 AM EDT, Partial fill upon patient request if the prescription is for a schedule II opioid drug. Start Date: 09/12/21 Status: Ordered Repeat number: 1 Biotin By Mouth, Daily, 0 Refills, Maintenance, 05/13/22 9:31:00 AM EDT, Partial fill upon patient request if the prescription is for a schedule II opioid drug. Start Date: 05/13/22 Status: Ordered Repeat number: 1 buPROPion 300 mg/24 hours (XL) oral tablet, extended release 1 tablet = 300 mg, By Mouth, Daily, # 30 tablet, 0 Refills, Maintenance, 10/30/19 4:54:00 AM EDT, ER Tablet Start Date: 10/30/19 Status: Ordered Quantity: 30.0 Unit: tablet Repeat number: 1 CPAP Machine CPAP 10; DME [facility], Maintenance, 04/30/24 5:31:00 PM EDT, Supply Start Date: 04/30/24 Status: Ordered Repeat number: 1 cyclobenzaprine 5 mg oral tablet 1 tablet = 5 mg, By Mouth, 3 times a day, pt takes when needed, # 90 tablet, 0 Refills, Maintenance, 11/11/22 4:34:00 PM EDT, Partial fill upon patient request if the prescription is for a schedule IIopioid drug. Start Date: 11/11/22 Status: Ordered Quantity: 90.0 Unit: tablet Repeat number: 1 exemestane 25 mg oral tablet 1 tablet, By Mouth, Daily, # 90 tablet, 3 Refills, Maintenance, 04/02/24 3:33:00 PM EST, [id number], 159.1, cm, 02/22/24 11:41:00 EST, Height, 80, kg, 02/22/24 10:47:00 EST, Dry Weight Start Date: 04/02/24 Status: Ordered Quantity: 90.0 Unit: tablet Repeat number: 1 famotidine 40 mg oral tablet 1 tablet = 40 mg, By Mouth, Daily at bedtime, # 30 tablet, 11 Refills, Maintenance, 11/11/22 4:54:00PM EDT, Tablet, [facility] #[id number], Partial fill upon patient request if the prescription is for a schedule II opioid drug., 158.6, cm, 11/11/22 16:35:00 EDT, Height, 70.4, kg, 05/12/22 14:02:00 EDT,Dry Weight Start Date: 11/11/22 Status: Ordered Quantity: 30.0 Unit: tablet Repeat number: 12 fluticasone 50 mcg/inh nasal spray Daily, 0 Refills, Maintenance, 07/15/22 8:31:00 PM EDT, Partial fill upon patient request if the prescription is for a schedule II opioid drug. Start Date: 07/15/22 Status: Ordered Repeat number: 1 gabapentin 300 mg oral capsule 30 each, 0 Refill(s), PLEASE TAKE 1 CAPSULE IN THE EVENING NEEDED FOR THE PAIN, Refills 0, 04/07/24 8:53:00 AM EST, Partial fill upon patient request if the prescription is for a schedule II opioiddrug. Start Date: 04/07/24 Status: Ordered Repeat number: 1 hydrochlorothiazide 25 mg oral tablet 25 mg, 1, tablet, By Mouth, Daily, Refills 0, Maintenance, 09/12/21 11:14:00 AM EDT, Partial fill upon patient request if the prescription is for a schedule II opioid drug. Start Date: 09/12/21 Status: Ordered Repeat number: 1 ipratropium nasal 21 mcg/inh spray 2 sprays = 42 mcg, 3 times a day, 0 Refills, Maintenance, 07/15/22 8:31:00 PM EDT, Partial fill uponpatient request if the prescription is for a schedule II opioid drug. Start Date: 07/15/22 Status: Ordered Repeat number: 1 losartan 100 mg oral tablet 90 each, 0 Refill(s), TAKE 1 TABLET BY MOUTH EVERY DAY, 0 Refills, 04/07/24 8:53:00 AM EST, Partial fill upon patient request if the prescription is for a schedule II opioid drug. Start Date: 04/07/24 Status: Ordered Repeat number: 1 Myrbetriq 50 mg oral tablet, extended release 1 tablet, By Mouth, Daily, DO NOT CRUSH OR CHEW., # 90 tablet, 3 Refills, Maintenance, 01/25/24 2:43:00 PM EST, [facility], 159.1, cm, 09/30/23 10:06:00 EDT, Height, 72.9, kg, 09/30/23 10:06:00 EDT, Dry Weight Start Date: 01/25/24 Status: Ordered Quantity: 90.0 Unit: tablet Repeat number: 1 oxyCODONE 5 mg oral tablet 5 mg, 1, tablet, TAKE 1 TABLET THREE TIMES A DAY NEEDED FOR 28 DAYS Start Date: 05/19/23 Status: Ordered Repeat number: 1 turmeric 1000 mg oral capsule 2 capsule = 2,000 mg, By Mouth, Daily, with food, # 90 capsule, 0 Refills, Maintenance, 05/19/23 11:25:00 AM EDT, Capsule, Partial fill upon patient request if the prescription is for a schedule II opioid drug. Start Date: 05/19/23 Status: Ordered Quantity: 90.0 Unit: capsule Repeat number: 1 Problem List Condition Confirmation Course Effective Dates Status H ealth Status Informant Hypertension Confirmed Active Acid reflux Confirmed Active Hyperlipidemia Confirmed Active Arthritis of lumbar spine Confirmed Active Breast cancer of lower-inner quadrant of right female breast Confirmed Active Mild major depression Confirmed Active Severe obstructive sleep apnea Confirmed Active Malignant neoplasm of overlapping sites of right breast in female, estrogen receptor positive Confirmed Active Social History Social History Type Response Tobacco Interested in cessat ion: No. No Sex Female Sex Representation Female (finding) Patient Care team information Care Team Personnel Name: Мария Jurado RN Position: S RN Member Role: Primary Care Nurse Name: Yessenia Thomason RN Position: [facility] HBO Wound Member Role: Primary Care Nurse Name: Prema Hernández RN Position: [facility] Onco RN Member Role: Primary Care Nurse Name: Guillermo Stover RN Position: [facility] RN Member Role: Primary Care Nurse Name: Sheng Zheng DO Position: [facility] Renal MD Member Role: Lifetime Consulting Physician Address: [address] [place], [place] [address] [place] [address]- Telecom: Name: Natalie Fontana Position: Reference Physician Member Role: PCP Address: [address] [place] [address]- Telecom: Name: Adriel Luna RN Position: [facility] SN RN Member Role: Primary Care Nurse Name: Nani Fleming RN Position: [facility] Onco RN Member Role: Primary Care Nurse Name: Joanne Santiago RN Position: S RN Member Role: Primary Care Nurse Name: Winsome Carlson RN Position: S RN Member Role: Primary Care Nurse Name: Kamini Paula RN Position: [facility] RN Member Role: Primary Care Nurse Name: Vibha Butler RN Position: [facility] Hospital Grease Man Member Role: Primary Care Nurse Care Team Related Persons Name: AMANDA SIERRA Name: CLARIBEL NINO Insurance Providers Guarantor name: JASIEL NINO Health Plan Information #: 1 Payer: MEDICARE PART B OUTPT Member Number: NA Policy Number: NA Group Number: NA Health Plan Information #: 2 Payer: [facility] Member Number: NA Policy Number: NA Group Number: NA
--- OUTSIDE RECORDS SUMMARY | 2024-07-13 10:27 | XMS_ITS | Clinical Summary ---
Author Organization [facility] Address [address] [place] [phone] Phone Care Team Providers Care Handling Tech Name Role Phone America Hall Primary Care Provider + [phone] Allergies Active Allergy Reactions Criticality Noted Date [...] (one) time each day 4 Active Methylcobalamin ([id number] PO) Take by mouth Active VITAMIN D [...] 05/26/2024 Telephone [facility] [place] [id number] [phone] Stephani Lassiter ARNP 04/25/2024 12:00 PM EST Office Visit [facility] [address] [phone] Stephani Lassiter ARNP Chronic kidney disease, stage [...] Visit [facility] [address] [facility] [address] [place] [phone] Rikki Malagon MD [address] [phone] Health Maintenance Due Date Last [...] 25-OH, Total 47.4 30.0 - 100.0 ng/mL [facility] Comment: Vitamin D deficiency has been defined by the [place] of Medicine and an Endocrine Society practice guideline as a level of serum 25-OH vitamin D less than 20 ng/mL (1,2). The Endocrine Society went on to further define vitamin D insufficiency as a level between 21 and 29 ng/mL (2). 1. IOM ([place] of Medicine). 2010. Dietary reference ?? intakes for calcium and D. [place]: The ?? National Academies Press. 2. Bob MF, Dora [place], Jammie ROONEY, et al. ?? Evaluation, treatment, and prevention of vitamin D ?? deficiency: an Endocrine Society clinical practice ?? guideline. JCEM. 2010; 96(7):1911-30. Blood specimen (specimen) Venous blood / Unknown 04/26/2024 12:13 PM EST 04/26/2024 Stephani [facility]EEFE LAB BLOOD ORDERABLES Final Result [facility] [address] [place] [address] * CBC (04/26/2024 12:13 PM EST) WBC 9.9 3.4 - 10.8 x10E3/uL [facility] RBC 4.39 3.77 - 5.28 x10E6/uL [facility] Hemoglobin 13.1 11.1 - 15.9 g/dL [facility] Hematocrit 39.7 34.0 - 46.6 % [facility] MCV 90 79 - 97 fL [facility] MCH 29.8 26.6 - 33.0 pg [facility] MCHC 33.0 31.5 - 35.7 g/dL [facility] RDW 13.4 11.7 - 15.4 % [facility] Platelets 352 150 - 450 x10E3/uL [facility] Blood specimen (specimen) Venous blood / Unknown 04/26/2024 12:13 PM EST 04/26/2024 Steph[facility] LAB BLOOD ORDERABLES Final Result [facility] [address] [place] [address] * PTH, intact (04/26/2024 12:13 PM EST) Pathologist [facility] [place] PTH 58 15 - 65 pg/mL [facility] Blood specimen (specimen) Venous blood / Unknown 04/26/2024 12:13 PM EST 04/26/2024 Stephani [facility] LAB BLOOD ORDERABLES Final Result Performing Organization Address [facility]/ZIP Co de Phone Number [facility] [address] [place] [address] * (ABNORMAL) Renal function panel (04/26/2024 12:13 PM EST) Pathologist [facility] Glucose 96 70 - 99 mg/dL [facility] BUN 22 8 - 27 mg/dL [facility] Creatinine 1.19(H) 0.57 - 1.00 mg/dL [facility] eGFR CKD-EPI CR 2020 47(L) >59 mL/min/1.7 3 [facility] BUN/Creatinine Ratio 18 12 - 28 [facility] Sodium 137 134 - 144 mmol/L [facility] Potassium 4.4 3.5 - 5.2 mmol/L [facility] Chloride 100 96 - 106 mmol/L [facility] Bicarbonate (CO2) 21 20 - 29 mmol/L [facility] Calcium 9.2 8.7 - 10.3 mg/dL [facility] Phosphorus 3.5 3.0 - 4.3 mg/dL [facility] Albumin 4.6 3.8 - 4.8 g/dL [facility] Blood specimen (specimen) Venous blood / Unknown 04/26/2024 12:13 PM EST 04/26/2024 Stephani [facility] LAB BLOOD ORDERABLES Final Result [facility] [address] [place] [phone] from Last 3 Months Insurance Medicare Medicare [facility] Medicare [facility] Care Teams Handling Tech Relationship Specialty Start Date End Date America Hall PA [address] PCP - General Physician Manager Investment 04/25/24
--- OUTSIDE RECORDS SUMMARY | 2024-07-13 10:28 | XMS_ITS | Data Portability ---
Author Organization [facility], Main Office Address [address] [facility] [address] [place] [address] Care Team Providers Care Paper Cone Grader Name Role Phone LUISA MCARTHUR Orthopedic Surgeon [phone] ELADIA FERRARI Urologist DUSTIN JOHN Insurance Claims Processor OSMIN QUIROZ Ged Teacher CLARIBEL QUIJANO Supervisor Elementary Education IBRAHIMA REGALADO Phys. Med. [facility] Rehab BRYANT BEAUCHAMP Primary Care Provider SOPHIE NICOLAS Neurosurgeon MANOJ ANDERSON Referring Provider Assessment Encounter Date Assessment Date Assessment LastModified [...] Go To The Location Of Their Choice, [id number] 10/23/2023 12:06:14 Referral hand surgeon referral 2023 024 vikram Meraz MD, [address] [place] [address] Dimitri Garcia, [place], [address], 02/04/2024 09:18:24 physical therapist referral - At risk for falling 2023 024 [email or web address] Falls Prevention Initiative - [facility], [address], [place], [address], 12/28/2023 14:39:46 Procedures None recorded. Surgeries None recorded. Imaging None recorded. Medication Orders Celebrex 200 [address] capsule [address] [facility][id number], [address] [place] [address], [address], 06/06/2024 09:31:32 albuterol sulfate HFA 90 mcg/actua tion aerosol inhaler 2023 024 [facility] [address] [place] [address], [address], 12/02/2023 15:23:23 gabapenti n 300 mg capsule 2023 024 [facility] [address] [place] [address], [address], 10/18/2023 10:33:11 Flonase Sensimist 27.5 mcg/actua tion nasal spray,izabella pension [address] [facility][id number], [address] [place] [address], [address], 12/28/2023 13:29:57 Patient TargetsNo targets recorded. Patient Instructions Encounter Date Encounter Id Patient Instructions Last Modified By Organization Details Last Modified Time 10/18/2023 [id number] painful urinatio n (dysuria): care instructions Not available 10/18/2023 10:33:11 12/28/2023 [id number] Dupuytren's Dise ase: Care Instructions Not available [...] weight srenzullo Not available 12/28/2023 14:20:18 04/26/2024 [id number] prediabetes: car e instructions Not available 04/26/2024 11:58:52 dash diet: care instructions Not available 04/26/2024 12:51:39 medicines to jacob id with kidney disease: care instructions Not available 04/26/2024 11:55:26 high cholesterol : care instructions Not available 04/26/2024 11:57:55 06/06/2024 [id number] rotator cuff problems: care instructions Not available [...] 1.012 1.005- 1.030 normal Not Available [facility] ([facility]) [address] [place], [address], 10/23/2023 12:06:14 10/19/1910/20/2023 URINA LYSIS , ROUTI NE pH 5.5 5.0-7. 5 normal Not Available [facility] ([facility]) [address] [place], [address], 10/23/2023 12:06:14 10/19/19 24 10/20/2023 URINA LYSIS , ROUTI NE urine-color Yellow yellow Not Available [facility] [address] [place], [address], 10/23/2023 12:06:14 10/19/19 24 10/20/2023 URINA LYSIS , ROUTI NE appearance Cloudy clear abnormal Not Available [facility] ([facility]) [address] [place], [address], 10/23/2023 12:06:14 10/19/19 24 10/20/2023 URINA LYSIS , ROUTI NE WBC esterase 3+ negati ve abnormal Not Available [facility] ([facility]) [address] [place], [address], 10/23/2023 12:06:14 10/19/19 24 10/20/2023 URINA LYSIS , ROUTI NE protein Negati ve negati ve/tra ce Not Available [facility] ([facility]) [address] [place], [address], 10/23/2023 12:06:14 10/19/19 24 10/20/2023 URINA LYSIS , ROUTI NE glucose Negati ve negati ve Not Available [facility] ([facility]) [address], [place], [address], 10/23/2023 12:06:14 10/19/19 24 10/20/2023 URINA LYSIS , ROUTI NE ketones Negati ve negati ve Not Available [facility] ([facility]) [address] [place], [address], 10/23/2023 12:06:14 10/19/19 24 10/20/2023 URINA LYSIS , ROUTI NE occult blood Trace negati ve abnormal Not Available [facility] ([facility]) [address] [place], [address], 10/23/2023 12:06:14 10/19/19 24 10/20/2023 URINA LYSIS , ROUTI NE bilirubin Negati ve negati ve Not Available [facility] ([facility]) [address] [place], [address], 10/23/2023 12:06:14 10/19/19 24 10/20/2023 URINA LYSIS , ROUTI NE urobilinogen ,semi-qn 0.2 mg/dL 0.2-1. 0 normal Not Available [facility] ([facility]) [address] [place], [address], 10/23/2023 12:06:14 10/19/19 24 10/20/2023 URINA LYSIS , ROUTI NE nitrite, urine Positi ve negati ve abnormal Not Available [facility] ([facility]) [address] [place], [address], 10/23/2023 12:06:14 10/19/19 24 10/20/2023 URINA LYSIS , ROUTI NE microscopic examination See below: Micro scopi c was indic ated and was perfo rmed. Not Available [facility] ([facility]) [address], [place], [address], 10/23/2023 12:06:14 10/19/19 24 10/20/2023 URINA LYSIS , ROUTI NE WBC >30 /hpf 0 - 5 abnormal Not Available [facility] ([facility]) [address], [place], [address], 10/23/2023 12:06:14 10/19/19 24 10/20/2023 URINA LYSIS , ROUTI NE RBC None seen /hpf 0 - 2 Not Available [facility] ([facility]) [address], [place], [address], 10/23/2023 12:06:14 10/19/19 24 10/20/2023 URINA LYSIS , ROUTI NE epithelial cells (non renal) 0-10 /hpf 0 - 10 Not Available [facility] ([facility]) [address], [place], [address], 10/23/2023 12:06:14 10/19/19 24 10/20/2023 URINA LYSIS , ROUTI NE epithelial cells (renal) TABLE GAMES SUPERVISOR Not Available [facility] ([facility]) [address], [place], [address], 10/23/2023 12:06:14 10/19/19 24 10/20/2023 URINA LYSIS , ROUTI NE casts None seen /lpf none seen Not Available [facility] ([facility]) [address], [place], [address], 10/23/2023 12:06:14 10/19/19 24 10/20/2023 URINA LYSIS , ROUTI NE cast type TABLE GAMES SUPERVISOR Not Available [facility] ([facility]) [address], [place], [address], 10/23/2023 12:06:14 10/19/19 24 10/20/2023 URINA LYSIS , ROUTI NE crystals TABLE GAMES SUPERVISOR Not Available [facility] ([facility]) [address], [place], [address], 10/23/2023 12:06:14 10/19/19 24 10/20/2023 URINA LYSIS , ROUTI NE crystal type TABLE GAMES SUPERVISOR Not Available [facility] [address], [place], [address], 10/23/2023 12:06:14 10/19/19 24 10/20/2023 URINA LYSIS , ROUTI NE mucus threads TABLE GAMES SUPERVISOR Not Available [facility] ([facility]) [address], [place], [address], 10/23/2023 12:06:14 10/19/19 24 10/20/2023 URINA LYSIS , ROUTI NE bacteria Many none seen/f ew abnormal Not Available [facility] ([facility]) [address], [place], [address], 10/23/2023 12:06:14 10/19/19 24 10/20/2023 URINA LYSIS , ROUTI NE yeast TABLE GAMES SUPERVISOR Not Available [facility] ([facility]) [address], [place], [address], 10/23/2023 12:06:14 10/19/19 24 10/20/2023 URINA LYSIS , ROUTI NE trichomonas TABLE GAMES SUPERVISOR Not Available [facility] [address], [place], [address], 10/23/2023 12:06:14 10/19/19 24 10/20/2023 URINA LYSIS , ROUTI NE comment TABLE GAMES SUPERVISOR Not Available [facility] ([facility]) [address], [place], [address], 10/23/2023 12:06:14 10/19/19 24 10/20/2023 UA/M W/RFL X CULTU RE, ROUTI NE microscopic examination TABLE GAMES SUPERVISOR Not Available [facility] [address], [place], [address], 10/23/2023 12:06:15 10/19/19 24 10/20/2023 UA/M W/RFL X CULTU RE, ROUTI NE urinalysis reflex Commen t This speci men has refle xed to a Urine Cultu re. Not Available [facility] ([facility]) [address], [place], [address], 10/23/2023 12:06:15 10/19/19 24 10/23/2023 UA/M W/RFL X CULTU RE, ROUTI NE urine culture, routine Final report abnormal Not Available [facility] ([facility]) [address], [place], [address], 10/23/2023 12:06:15 10/19/19 24 10/23/2023 UA/M W/RFL X CULTU RE, ROUTI NE result 1 Escher ichia coli abnormal Great er than 100,0 00 colon y formi ng units per mL Cefaz maciel <=4 ug/mL Cefaz maciel with an MADHU <=16 predi cts susce [...] catch urine speci mens. Not Available [facility] ([facility]) [address] [place], [address], 10/23/2023 12:06:15 10/19/19 24 10/23/2023 UA/M W/RFL [...] thopr im/Stratton lfa S Not Available [facility] ([facility]) [address] [place], [address], 10/23/2023 12:06:15 04/27/19 25 04/26/2024 COMP. METAB OLIC PANEL (14) glucose 99 mg/dL 70-99 normal Not Available [facility] ([facility]) [address] [place], [address], 04/27/2024 06:08:48 04/27/19 25 04/26/2024 COMP. METAB OLIC PANEL (14) BUN 22 mg/dL 8-27 normal Not Available [facility] ([facility]) [address] [place], [address], 04/27/2024 06:08:48 04/27/19 25 04/26/2024 COMP. METAB OLIC PANEL (14) creatinine 1.16 mg/dL 0.57-1 .00 above high normal Not Available [facility] ([facility]) [address] [place], [address], 04/27/2024 06:08:48 04/27/19 25 04/26/2024 COMP. METAB OLIC PANEL (14) eGFR 49 mL/mi n/1.7 3 >59 below low normal Not Available [facility] ([facility]) [address] [place], [address], 04/27/2024 06:08:48 04/27/19 25 04/26/2024 COMP. METAB OLIC PANEL (14) BUN/creatini ne ratio 19 12-28 normal Not Available [facility] ([facility]) [address] [place], [address], 04/27/2024 06:08:48 04/27/19 25 04/26/2024 COMP. METAB OLIC PANEL (14) sodium 137 mmol/ L 134-14 4 normal Not Available [facility] ([facility]) [address] [place], [address], 04/27/2024 06:08:48 04/27/19 25 04/26/2024 COMP. METAB OLIC PANEL (14) potassium 4.3 mmol/ L 3.5-5. 2 normal Not Available [facility] ([facility]) [address] [place], [address], 04/27/2024 06:08:48 04/27/19 25 04/26/2024 COMP. METAB OLIC PANEL (14) chloride 100 mmol/ L 96-106 normal Not Available [facility] ([facility]) [address] [place], [address], 04/27/2024 06:08:48 04/27/19 25 04/26/2024 COMP. METAB OLIC PANEL (14) carbon dioxide, total 21 mmol/ L 20-29 normal Not Available [facility] ([facility]) [address] [place], [address], 04/27/2024 06:08:48 04/27/19 25 04/26/2024 COMP. METAB OLIC PANEL (14) calcium 9.3 mg/dL 8.7-10 .3 normal Not Available [facility] ([facility]) [address] [place], [address], 04/27/2024 06:08:48 04/27/19 25 04/26/2024 COMP. METAB OLIC PANEL (14) protein, total 7.1 g/dL 6.0-8. 5 normal Not Available [facility] ([facility]) [address] [place], [address], 04/27/2024 06:08:48 04/27/19 25 04/26/2024 COMP. METAB OLIC PANEL (14) albumin 4.5 g/dL 3.8-4. 8 normal Not Available [facility] ([facility]) [address] [place], [address], 04/27/2024 06:08:48 04/27/19 25 04/26/2024 COMP. METAB OLIC PANEL (14) globulin, total 2.6 g/dL 1.5-4. 5 Not Available [facility] ([facility]) [address] [place], [address], 04/27/2024 06:08:48 04/27/19 25 04/26/2024 COMP. METAB OLIC PANEL (14) bilirubin, total 0.4 mg/dL 0.0-1. 2 normal Not Available [facility] ([facility]) [address] [place], [address], 04/27/2024 06:08:48 04/27/19 25 04/26/2024 COMP. METAB OLIC PANEL (14) alkaline phosphatase 81 IU/L 44-121 normal Not Available [facility] ([facility]) [address] [place], [address], 04/27/2024 06:08:48 04/27/19 25 04/26/2024 COMP. METAB OLIC PANEL (14) AST (SGOT) 16 IU/L 0-40 normal Not Available [facility] ([facility]) [address] [place], [address], 04/27/2024 06:08:48 04/27/19 25 04/26/2024 COMP. METAB OLIC PANEL (14) ALT (SGPT) 14 IU/L 0-32 normal Not Available [facility] ([facility]) [address] [place], [address], 04/27/2024 06:08:48 04/27/19 25 04/26/2024 LIPID PANEL cholesterol, total 195 mg/dL 100-19 9 normal Not Available [facility] ([facility]) [address] [place], [address], 04/27/2024 06:08:48 04/27/19 25 04/26/2024 LIPID PANEL triglyceride s 104 mg/dL 0-149 normal Not Available [facility]) [address] [place], [address], 04/27/2024 06:08:48 04/27/19 25 04/26/2024 LIPID PANEL HDL cholesterol 69 mg/dL >39 normal Not Available [facility]) [address] [place], [address], 04/27/2024 06:08:48 04/27/19 25 04/26/2024 LIPID PANEL VLDL cholesterol saurabh 18 mg/dL 5-40 Not Available [facility]) [address] [place], [address], 04/27/2024 06:08:48 04/27/19 25 04/26/2024 LIPID PANEL LDL chol calc (rust) 108 mg/dL 0-99 above high normal Not Available [facility] ([facility]) [address] [place], [address], 04/27/2024 06:08:48 04/27/19 25 04/26/2024 LIPID PANEL LDL calc comment: TABLE GAMES SUPERVISOR Not Available [facility] ([facility]) [address], [place], [address], 04/27/2024 06:08:48 04/27/19 25 04/26/2024 HEMOG LOBIN A1C hemoglobin A1C 5.8 % 4.8-5. 6 above high normal Predi abete s: 5.7 - 6.4 Diabe saul: >6.4 Glyce madhu contr ol for adult s with diabe saul: <7.0 Not Available [facility] ([facility]) [address] [place], [address], 04/27/2024 06:08:49 04/27/19 25 04/26/2024 TSH TSH 1.640 uIU/m L 0.450- 4.500 normal Not Available [facility] ([facility]) [address] [place], [address], 04/27/2024 06:08:49 04/27/19 25 04/29/2024 ALBUM IN/CR EAT RATIO , RANDO M UR creatinine, urine 73.8 mg/dL not estab. normal Not Available [facility] ([facility]) [address] [place], [address], 04/29/2024 12:06:34 04/27/19 25 04/29/2024 ALBUM IN/CR EAT RATIO , RANDO M UR albumin, urine 8.5 ug/mL not estab. Not Available [facility] ([facility]) [address] [place], [address], 04/29/2024 12:06:34 04/27/19 25 04/29/2024 ALBUM IN/CR EAT RATIO , RANDO M UR alb/creat ratio 12 mg/g_ creat 0-29 Mayra l: 0 - 29 Moder ately incre ased: 30 - 300 Sever brea incre ased: >300 Not Available [facility] ([facility]) [address], [place], [address], 04/29/2024 12:06:34 12/24/19 24 12/24/2023 LDCT, chest , for lung arnol glasgow No observ ation record ed. [facility] [address] [facility], [place], [address], 12/24/2023 13:46:28 12/24/19 24 12/24/2023 CT chest ldct lung progr am CT Chest LDCT Lung Progra m Reason : Other: ; LDCT LUNG CANCER SCREEN ING PROGRA M, FORMER SMOKER , QUIT AT AGE 66, 50 PACK YEAR HX; Clinic al Questi on(s): Other: ; Specia l Instru ctions : BOOK AT [address], [place] BOOK AFTER 12 22 2023 NO [...] or juncti on line. OTHER FINDIN GS: Feed Adviser view findin gs, lines and tubes: Stimul [...] s/RADS /Lung- RADS/L inder-RA DS-202 2.pdf WSN: [id number] Orderi ng Physic stephie: Melvin Beauchamp ia Dictat ed By: Charline Mcleod MD Dictat ed Date/T felix: 11:40 a Review ed By: Charline Mcleod MD Signed By: Charline Mcleod MD Signed Date/T felix: 11:40 am Transc ribed By: ROBINSON Transc ribed Date/T felix: 11:35 am Patien t Class: [facility] [address] , [place], [address], 01/07/2024 11:54:18 11/04/20 24 12/24/2023 LDCT, chest , for lung martice r gonzalo glasgow No observ ation record ed. [email or web address] [facility] [address] [place], [address], 01/10/2024 09:35:09 02/15/20 24 01/27/2024 XR, hip, unila teral No observ ation record ed. [email or web address] [facility] (Medical Records) [address] [facility] [address], [place], [address], 02/17/2024 08:21:53 Result Notes None recorded. Problems Name Problem SNOMED Code Status Onset Date Resolution Date Notes Provider Name and Address Organization Details Recorded Time Acute sinusiti s 18144872 Completed 200809/12/2013 RECORDED 04/02/19 09 3:39PM BY URI SAVAGE, NEELIMAATI ON/ADDEN DUM Not Available [facility] 4 15:04:04 Adult health examinat ion Completed 201312/19/2015 URI Bunn [facility] 6 14:03:03 Screenin g for malignan t neoplasm of breast Completed 201109/12/2013 RECORDED 10/06/19 12 3:45PM BY RUSTY WILCOX MA, NEELIMAATI ON/ADDEN DUM Not Available [facility] 4 15:04:04 Screenin g for malignan t neoplasm of cervix Completed 201109/12/2013 RECORDED 10/06/19 12 3:45PM BY RUSTY WILCOX MA, NEELIMAATI ON/ADDEN DUM Not Available [facility] 4 15:04:04 Neck pain [id number] Completed 201307/01/2016 Pooja potter [facility] 7 09:28:47 Chest pain 24593891 Completed 200709/12/2013 RECORDED 11/07/19 08 2:49PM BY RUSTY WILCOX MA, ALEJANDRO ON/ADDEN DUM Not Available [facility] 4 15:04:04 Malaise and fatigue 246538406 Completed 201307/01/2016 Pooja potter, [facility] 7 09:28:41 Tobacco user [id number] Completed 201312/19/2015 Removal Reason: quit URI Bunn, [facility] 6 14:04:28 History of clinical finding in subject [id number] Completed 201312/19/2015 URI Bunn, [facility] 6 14:03:36 Gastroes ophageal reflux disease 799115350 Active 2013 Not Available [facility] 3 12:18:48 Hearing loss 29986013 Completed 201312/13/2018 Removal Reason: entered twice Jessie Jigar potter, [facility] 9 16:51:59 Herpes zoster [id number] Completed 201307/09/2023 Bryant Beauchamp PA-C [address], [place], [address] , [facility], [place] 4 11:17:16 Hyperlip idemia 36397428 Active 2013 Not Available [facility] 3 12:18:48 Low back pain 349401590 Completed 201209/12/2013 RECORDED 03/16/19 13 1:57PM BY RUSTY WILCOX MA, ANNOTATI ON/ADDEN DUM Bryant Beauchamp PA-C [address], [place], [address] , [facility], [place] 4 11:16:47 Renewal of prescrip tion Completed 201209/12/2013 RECORDED 03/16/19 13 1:57PM BY RUSTY I MERRILL- JERI, MA, ANNOTATI ON/ADDEN DUM Not Available [facility] 4 15:04:05 Influenz a vaccine needed [id number] 06 Completed 201209/12/2013 RECORDED 03/16/19 13 1:57PM BY RUSTY WILCOX MA, ANNOTATI ON/ADDEN DUM Not Available [facility] 4 15:04:05 Administ ration of viral vaccine Completed 200809/12/2013 RECORDED 10/12/19 09 4:46PM BY NAHID GEIGER MD, OFFICE VISIT Not Available [facility] 4 15:04:05 Administ ration of bacteria l and viral vaccine Completed 200709/12/2013 RECORDED 12/28/19 08 3:42PM BY MARIELY MOORE, OFFICE VISIT Not Available [facility] 4 15:04:05 Osteoart hritis 849271338 Completed 201312/13/2018 Bryant Beauchamp PA-C [address], [place], [address] , [facility], [place] 9 11:40:52 Infectiv e otitis externa 14957250 Completed 201109/12/2013 RECORDED 10/06/19 12 3:45PM BY RUSTY WILCOX MA, ANNOTATI ON/ADDEN DUM Not Available [facility] 4 15:04:05 Enthesop athy of ankle AND/OR tarsus 39235525 Completed 201109/12/2013 RECORDED 10/06/19 12 3:45PM BY RUSTY WILCOX MA, ANNOTATI ON/ADDEN DUM Not Available [facility] 4 15:04:05 Polymyal clark rheumati ca 12648217 Completed 201209/12/2013 RECORDED 03/16/19 13 1:57PM BY NAHID GEIGER MD, ANNOTATI ON/ADDEN DUM Not Available [facility] 4 15:04:05 Screenin g for malignan t neoplasm of colon Completed 200809/12/2013 RECORDED 10/12/19 09 3:56PM BY URI SALES, NEELIMAATI ON/ADDEN DUM Not Available [facility] 4 15:04:05 Spinal stenosis 81548552 Completed 201312/13/2018 Bryant Beauchamp PA-C [address], [place], [address] , [facility], [place] 9 11:46:20 Spinal stenosis of lumbar region 27517217 Active 2013 S/p Nervo CSC implanta tion in April. Bryant Beauchamp PA-C [address], [place], [address] , [facility], [place] 4 11:19:02 Temporom andibula r joint disorder 65048603 Completed 201301/02/2020 Bryant Beauchamp PA-C [address], [place], [address] , [facility], [place] 0 11:52:19 Tobacco dependen ce syndrome 93182851 Completed 201109/12/2013 RECORDED 03/31/19 12 4:11PM BY RUSTY WILCOX MA, NEELIMAATI ON/ADDEN DUM Not Available [facility] 4 15:04:05 Enthesop athy of hip region 04512688 Completed 201109/12/2013 RECORDED 10/06/19 12 3:45PM BY RUSTY WILCOX MA, ANNOTATI ON/ADDEN DUM Not Available [facility] 4 15:04:05 Patient status finding 342152738 Completed 201312/19/2015 URI Bunn, [facility] 6 14:02:48 Acute sinusiti s 95348587 Completed 200810/02/2013 RECORDED 04/02/19 09 3:39PM BY URI SAVAGE, NEELIMAATI ON/ADDEN DUM Not Available [facility] 4 06:58:53 Adult health examinat ion Completed 201310/02/2013 RECORDED 09/01/19 14 10:24AM BY RUSTY WILCOX MA, ANNOTATI ON/ADDEN DUM URI Bunn, [facility] 6 14:03:03 Screenin g for malignan t neoplasm of breast Completed 201110/02/2013 RECORDED 10/06/19 12 3:45PM BY RUSTY WILCOX MA, ANNOTATI ON/ADDEN DUM Not Available [facility] 4 06:58:53 Open wound [id number] Completed 201310/02/2013 RECORDED 09/02/19 14 11:57AM BY LA NENA PEREZ I, ANNOTATI ON/ADDEN DUM Not Available [facility] 4 06:58:53 Screenin g for malignan t neoplasm of cervix Completed 201110/02/2013 RECORDED 10/06/19 12 3:45PM BY RUSTY WILCOX MA, ANNOTATI ON/ADDEN DUM Not Available [facility] 4 06:58:53 Chest pain 15103974 Completed 200710/02/2013 RECORDED 11/07/19 08 2:49PM BY RUSTY WILCOX MA, ANNOTATI ON/ADDEN DUM Not Available [facility] 4 06:58:53 Malaise and fatigue 990502306 Completed 201310/02/2013 RECORDED 09/01/19 14 10:24AM BY RUSTY WILCOX MA, ANNOTATI ON/ADDEN DUM Pooja pottre, [facility] 7 09:28:41 Tobacco user [id number] Completed 201310/02/2013 RECORDED 09/01/19 14 10:24AM BY RUSTY WILCOX MA, ANNOTATI ON/ADDEN DUM URI Bunn, [facility] 6 14:04:28 Low back pain 278524351 Completed 201210/02/2013 RECORDED 03/16/19 13 1:57PM BY RUSTY WILCOX MA, ANNOTATI ON/ADDEN DUM Bryant Beauchamp PA-C [address] [facility] [address], [place], [address] , [facility], [place] 4 11:16:47 Renewal of prescrip tion Completed 201210/02/2013 RECORDED 03/16/19 13 1:57PM BY RUSTY WILCOX MA, ANNOTYOLIS ON/ADDEN DUM Not Available [facility] 4 06:58:54 Influenz a vaccine needed [id number] 06 Completed 201210/02/2013 RECORDED 03/16/19 13 1:57PM BY RUSTY WILCOX MA, ANNOTATI ON/ADDEN DUM Not Available [facility] 4 06:58:54 Administ ration of viral vaccine Completed 200810/02/2013 RECORDED 10/12/19 09 4:46PM BY NAHID GEIGER MD, OFFICE VISIT Not Available [facility] 4 06:58:54 Administ ration of bacteria l and viral vaccine Completed 200710/02/2013 RECORDED 12/28/19 08 3:42PM BY MARIELY MOORE, OFFICE VISIT Not Available [facility] 4 06:58:54 Infectiv e otitis externa 50862536 Completed 201110/02/2013 RECORDED 10/06/19 12 3:45PM BY RUSTY WILCOX MA, ANNOTATI ON/ADDEN DUM Not Available [facility] 4 06:58:54 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 3 12:18:48 Enthesop athy of ankle AND/OR tarsus [id number] Completed 201110/02/2013 RECORDED 10/06/19 12 3:45PM BY RUSTY WILCOX MA, ANNOTATI ON/ADDEN DUM Not Available [facility] 4 06:58:54 Polymyal clark rheumati ca [id number] Completed 201210/02/2013 RECORDED 03/16/19 13 1:57PM BY NAHID GEIGER MD, ANNOTATI ON/ADDEN DUM Not Available [facility] 4 06:58:54 Screenin g for malignan t neoplasm of colon Completed 200810/02/2013 RECORDED 10/12/19 09 3:56PM BY URI [employer], ANNOTATI ON/ADDEN DUM Not Available [facility] 4 06:58:54 Tobacco dependen ce syndrome [id number] Completed 201110/02/2013 RECORDED 03/31/19 12 4:11PM BY RUSTY WILCOX MA, ANNOTATI ON/ADDEN DUM Not Available [facility] 4 06:58:54 Enthesop athy of hip region [id number] Completed 201110/02/2013 RECORDED 10/06/19 12 3:45PM BY RUSTY WILCOX MA, ANNOTATI ON/ADDEN DUM Not Available [facility] 4 06:58:54 Fatigue [id number] Completed 07/01/2016 Pooja potter [facility] 7 09:28:51 Body mass index 30+ - obesity 926493928 Completed 12/13/2018 Removal Reason: dx changed Jessie potter [facility] 9 16:52:08 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 wrist correcte d Bryant Beauchamp PA-C [address] [address], [place], [address] , [facility] 4 11:17:08 Elevated blood-pr essure reading without diagnosi s of hyperten sarah 255893882 Completed 05/25/2017 Bryant Beauchamp PA-C [address], [place], [address] , [facility] [place], [place] 8 10:47:33 Ex-smoke r 4394305 Active 2015 Not Available [facility] 3 12:18:49 Osteopen ia 058436828 Active 2017 Not Available [facility] 3 12:18:48 Hyperten sive disorder 48908132 Completed 201701/02/2020 Bryant [employer] [address], [place], [address] , [facility] [place], [place] 0 12:06:51 Stress-r elated problem 630369645 Completed 201712/13/2018 Bryant ABELFRAMEDBernadette [address], [place], [address] , [facility] [place], [place] 9 11:46:27 Impaired fasting glycemia 058559271 Active 2018 Not Available [facility] 3 12:18:48 Hearing loss 88422290 Active 2018 Not Available [facility] 3 12:18:48 Urge incontin ence of urine 63152019 Active 2018 Not Available [facility] 3 12:18:49 Obesity 970064127 Completed 201801/02/2020 [facility] 2 12:45:16 Postherp etic neuralgi a 3827561 Completed 201801/02/2020 Bryant ABELFRAMEDBernadette [address], [place], [address] , [facility] [place], [place] 0 11:51:48 Major depressi on in full remissio n 16054597 Completed 201907/09/2023 Bryant ABELFRAMEDBernadette [address], [place], [address] , [facility] [place], [place] 4 11:16:31 Hyperten sive renal disease 88686156 Active 2019 Not Available [facility] 3 12:18:48 Obstruct martine sleep apnea of adult 55327623069 03 Active 2019 Not Available [facility] 3 12:18:48 Obesity 635418622 Active 2021 Not Available [facility] 3 12:18:48 Obstruct martine sleep apnea syndrome 74611453 Active 2021 Not Available [facility] 3 12:18:48 Periodic limb movement disorder 468041449 Active 2022 Not Available [facility] 3 12:18:48 Muscle spasm of cervical muscle of neck 74139799992 4 Active 2022 Not Available [facility] 3 12:18:48 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 68455411618 29981 Active 2023 Bryant Beauchamp PA-C [address], [place], [address] , [facility] [place], [place] 4 13:27:23 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 80625165036 9108 Active 2023 Bryant ABEL-C [address], [place], [address] , [facility] [place], [place] 4 11:16:06 Body mass index 25-29 - overweig ht 812477659 Active 2023 Bryant ABEL-C [address], [place], [address] , [facility] [place], [place] 4 13:40:21 Dupuytre n's disease of palm 287754900 Active 2023 Bryant DE LA OC [address], [place], [address] , [facility] [place], [place] 4 14:32:00 Chronic kidney disease stage 3A 459621574 Active 2024 Bryant Beauchamp PA-C [address], [place], [address] , [facility] [place], [place] 5 20:04:34 Prediabe saul 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 Please review this document and add these problems to the patient's chart manually as needed. Problem Notes None recorded. Procedures Surgical History Date Name Laterality Status Provider Name and Address Organization Details Recorded Time 12/28/19 24 Advanced Care Planning completed Saniya Jackson LPN [facility] 12/28/2023 13:23:47 12/24/19 24 [address] of lungs completed Tiffanie Lawrence [facility] 01/10/2024 09:35:07 06/11/19 24 implantation of temporary spinal cord stimulator completed Tiffanie Lawrence [facility] 06/14/2023 10:27:58 05/14/19 24 implantation of temporary spinal cord stimulator completed Tiffanie Lawrence [facility] 05/17/2023 09:06:53 04/09/19 24 Most Recent Mammogram completed Tiffanie Lawrence [facility] 02/17/2024 08:22:32 08/12/19 23 Advanced Care Planning completed Yana Carias MA [facility] 08/11/2022 14:34:06 09/16/19 22 transforaminal lumbar interbody fusion completed Simona Lora [facility] 09/23/2021 15:53:19 04/01/19 22 Mammogram screening completed Leticia Ruiz [facility] 04/07/2021 13:21:53 03/22/19 21 Most Recent Bone Density completed Kay David MA [facility] 04/30/2021 15:12:39 01/02/20 20 Six-Item Cognitive Test completed Eliane Sales MA [facility] 01/02/2020 11:19:38 11/13/19 20 Egd diagnostic brush wash completed Saniyadeja Centeno [facility] 11/14/2019 10:08:01 09/28/19 20 epidural steroid injection completed [facility] 10/02/2019 09:09:17 02/18/20 19 injection of tendon sheath completed [facility] 02/20/2019 15:08:15 12/14/19 19 Mini-Cog Test completed Rusty barth [facility] 12/13/2018 11:23:15 07/13/19 18 Dxa bone density stacia vrt fx completed Rusty barth [facility] 12/13/2018 11:09:12 05/26/19 18 Mini-Cog Test completed La Nena Guillen [facility] 05/25/2017 10:01:28 05/14/19 17 Date of Last Colonoscopy completed Rusty barth [facility] 12/13/2018 11:19:18 05/14/19 17 Colonoscopy completed Rusty barth [facility] 12/13/2018 11:19:08 12/19/19 16 Fall Risk Assessment completed Rusty barth [facility] 12/19/2015 14:16:52 12/19/19 16 Mini-Cog Test completed Rusty GageChrisade barth [facility] 12/19/2015 14:18:45 12/07/19 15 Fall Risk Assessment completed Rusty barth [facility] 12/06/2014 09:28:12 12/07/19 15 Mini-Cog Test completed Rusty barth [facility] 12/06/2014 09:30:58 04/01/19 14 completed Keeley Bowman MA [facility] 11/14/2013 13:20:07 03/27/19 14 Back Surgery completed Rusty barth MA [facility] 12/06/2014 09:29:02 08/31/19 13 Date of Last Pap Smear completed Keeley Bowman MA [facility] 11/14/2013 13:20:07 06/15/19 07 completed Keeley Bowman MA [facility] 11/14/2013 13:20:07 Imaging Results Imaging Date Name Status LastModified by [facility] Details LastModified Time 12/24/2023 LDCT, chest, for lung cancer screening completed [address] [facility] [address] [place], [address], 12/24/2023 13:46:28 12/24/2023 CT chest ldct lung program completed [facility] (Outpt Imaging) [address] [place], [address], 01/07/2024 11:54:18 12/24/2023 LDCT, chest, for lung cancer screening completed [address] [facility] [address] [place], [address], 01/10/2024 09:35:09 01/27/2024 XR, hip, unilateral completed [address] (Medical Records) [address] [place], [address], 02/17/2024 08:21:53 Procedure Notes None recorded. Medical [...] TAKE 1 CAPSULE BY MOUTH EVERY DAY 2024 active Not Available Not Available Not Avai lable amoxicill in 500 mg capsule TAKE 1 [...] 11/27/19 10 2:59PM BY URI SALES, OFFICE VISIT;DR Jerald AGUIRRE I Not Available [...] TAKE 1 TABLET BY MOUTH EVERY DAY 2024 active Not Available Not Available Not Avai lable fluticaso ne propionat e 50 mcg/actua tion nasal spray,izabella pension Inhale 1 spray every day by nasal route as needed for 30 days. 06/16 completed Not Available Not Available Not Available ipratropi um bromide 21 mcg (0.03 %) nasal spray [place] 1 spray every day by nasal route [...] Last Updated DateTime 159.39 cm 29.5 kg/m2 51066.7 4 g 76 /min 96 % 96 % 97.5 [degF] 123 mm[Hg] 68 mm[Hg] Pamella samuel MA [facility] 4 10:21:06 Date Recorded Heart rate Systolic blood pressure Diastolic blood pressure Provider Name and Address Organization Details Last Updated DateTime 10/19/2023 75 /min 124 mm[Hg] 78 mm[Hg] Not Available [facility] 10/19/2023 12:13:03 Date Recorded Heart rate Systolic blood pressure Diastolic blood pressure Provider Name and Address Organization Details Last Updated DateTime 10/22/2023 66 /min 140 mm[Hg] 65 mm[Hg] Not Available [facility] 10/22/2023 10:41:04 Date Recorded Heart rate Systolic blood pressure Diastolic blood pressure Provider Name and Address Organization Details Last Updated DateTime 10/23/2023 85 /min 125 mm[Hg] 63 mm[Hg] Not Available [facility] 10/23/2023 11:53:03 Date Recorded Heart rate Systolic blood pressure Diastolic blood pressure Provider Name and Address Organization Details Last Updated DateTime 10/31/2023 72 /min 129 mm[Hg] 63 mm[Hg] Not Available [facility] 10/31/2023 11:30:05 Date Recorded Heart rate Systolic blood pressure Diastolic blood pressure Provider Name and Address Organization Details Last Updated DateTime 11/03/2023 66 /min 147 mm[Hg] 73 mm[Hg] Not Available [facility] 11/03/2023 09:35:02 Date Recorded Heart rate Systolic blood pressure Diastolic blood pressure Provider Name and Address Organization Details Last Updated DateTime 11/05/2023 63 /min 138 mm[Hg] 62 mm[Hg] Not Available [facility] 11/05/2023 10:20:01 Date Recorded Heart rate Systolic blood pressure Diastolic blood pressure Provider Name and Address Organization Details Last Updated DateTime 11/06/2023 70 /min 134 mm[Hg] 68 mm[Hg] Not Available [facility] 11/06/2023 10:51:05 Date Recorded Heart rate Systolic blood pressure Diastolic blood pressure Provider Name and Address Organization Details Last Updated DateTime 11/09/2023 90 /min 132 mm[Hg] 67 mm[Hg] Not Available [facility] 11/09/2023 13:32:06 Date Recorded Heart rate Systolic blood pressure Diastolic blood pressure Provider Name and Address Organization Details Last Updated DateTime 11/11/2023 74 /min 131 mm[Hg] 66 mm[Hg] Not Available [facility] 11/11/2023 11:14:06 Date Recorded Heart rate Systolic blood pressure Diastolic blood pressure Provider Name and Address Organization Details Last Updated DateTime 11/12/2023 70 /min 133 mm[Hg] 68 mm[Hg] Not Available [facility] 11/12/2023 09:33:05 Date Recorded Heart rate Systolic blood pressure Diastolic blood pressure Provider Name and Address Organization Details Last Updated DateTime 11/15/2023 70 /min 120 mm[Hg] 61 mm[Hg] Not Available [facility] 11/15/2023 12:39:04 Date Recorded Heart rate Systolic blood pressure Diastolic blood pressure Provider Name and Address Organization Details Last Updated DateTime 11/22/2023 68 /min 142 mm[Hg] 65 mm[Hg] Not Available [facility] 11/22/2023 09:22:02 Date Recorded Heart rate Systolic blood pressure Diastolic blood pressure Provider Name and Address Organization Details Last Updated DateTime 11/23/2023 68 /min 141 mm[Hg] 69 mm[Hg] Not Available [facility] 11/23/2023 08:42:03 Date Recorded Heart rate Systolic blood pressure Diastolic blood pressure Provider Name and Address Organization Details Last Updated DateTime 12/02/2023 106 /min 98 mm[Hg] 57 mm[Hg] Not Available [facility] 12/02/2023 13:03:04 Date Recorded Body height Body mass index (BMI) Body weight Heart rate Oxygen saturation Oxygen saturation in Arterial blood by Pulse oximetry Body temperature Systolic blood pressure Diastolic blood pressure Provider Name and Address Organization Details Last Updated DateTime 159.39 cm 27.9 kg/m2 86714.8 1 g 85 /min 97 % 97 % 98 [degF] 128 mm[Hg] 76 mm[Hg] Kay Andersen [facility] 15:13:02 Date Recorded Heart rate Systolic blood pressure Diastolic blood pressure Provider Name and Address Organization Details Last Updated DateTime 12/04/2023 90 /min 114 mm[Hg] 69 mm[Hg] Not Available [facility] 12/04/2023 10:35:07 Date Recorded Heart rate Systolic blood pressure Diastolic blood pressure Provider Name and Address Organization Details Last Updated DateTime 12/06/2023 75 /min 145 mm[Hg] 70 mm[Hg] Not Available [facility] 12/06/2023 08:32:06 Date Recorded Heart rate Systolic blood pressure Diastolic blood pressure Provider Name and Address Organization Details Last Updated DateTime 12/14/2023 84 /min 111 mm[Hg] 52 mm[Hg] Not Available [facility] 12/14/2023 14:00:11 Date Recorded Heart rate Heart rate Systolic blood pressure Diastolic blood pressure Systolic blood pressure Diastolic blood pressure Provider Name and Address Organization Details Last Updated DateTime 90 /min 96 /min 117 mm[Hg] 81 mm[Hg] 127 mm[Hg] 58 mm[Hg] Not Available [facility] 10:08:03 Date Recorded Heart rate Systolic blood pressure Diastolic blood pressure Provider Name and Address Organization Details Last Updated DateTime 12/17/2023 88 /min 117 mm[Hg] 70 mm[Hg] Not Available [facility] 12/17/2023 09:15:03 Date Recorded Heart rate Systolic blood pressure Diastolic blood pressure Provider Name and Address Organization Details Last Updated DateTime 12/21/2023 90 /min 132 mm[Hg] 69 mm[Hg] Not Available [facility] 12/21/2023 11:06:07 Date Recorded Heart rate Systolic blood pressure Diastolic blood pressure Provider Name and Address Organization Details Last Updated DateTime 12/24/2023 75 /min 126 mm[Hg] 62 mm[Hg] Not Available [facility] 12/24/2023 09:38:03 Date Recorded Heart rate Systolic blood pressure Diastolic blood pressure Provider Name and Address Organization Details Last Updated DateTime 12/26/2023 81 /min 137 mm[Hg] 70 mm[Hg] Not Available [facility] 12/26/2023 11:55:03 Date Recorded Heart rate Systolic blood pressure Diastolic blood pressure Provider Name and Address Organization Details Last Updated DateTime 12/28/2023 83 /min 115 mm[Hg] 58 mm[Hg] Not Available [facility] 12/28/2023 08:41:07 Date Recorded Body height Body mass index (BMI) Body weight Heart rate Oxygen saturation Oxygen saturation in Arterial blood by Pulse oximetry Body temperature Systolic blood pressure Diastolic blood pressure Provider Name and Address Organization Details Last Updated DateTime 159.39 cm 27.9 kg/m2 70431.5 1 g 92 /min 98 % 98 % 98.5 [degF] 121 mm[Hg] 71 mm[Hg] Saniya Jackson LPN [facility] 13:28:31 Date Recorded Heart rate Systolic blood pressure Diastolic blood pressure Provider Name and Address Organization Details Last Updated DateTime 01/03/2024 72 /min 127 mm[Hg] 61 mm[Hg] Not Available [facility] 01/03/2024 07:30:05 Date Recorded Heart rate Systolic blood pressure Diastolic blood pressure Provider Name and Address Organization Details Last Updated DateTime 01/21/2024 74 /min 138 mm[Hg] 68 mm[Hg] Not Available [facility] 01/21/2024 11:11:06 Date Recorded Heart rate Systolic blood pressure Diastolic blood pressure Provider Name and Address Organization Details Last Updated DateTime 01/24/2024 96 /min 104 mm[Hg] 57 mm[Hg] Not Available [facility] 01/24/2024 12:28:05 Date Recorded Heart rate Systolic blood pressure Diastolic blood pressure Provider Name and Address Organization Details Last Updated DateTime 02/02/2024 69 /min 133 mm[Hg] 66 mm[Hg] Not Available [facility] 02/02/2024 08:33:02 Date Recorded Heart rate Systolic blood pressure Diastolic blood pressure Provider Name and Address Organization Details Last Updated DateTime 02/07/2024 77 /min 137 mm[Hg] 64 mm[Hg] Not Available [facility] 02/07/2024 10:36:07 Date Recorded Heart rate Systolic blood pressure Diastolic blood pressure Provider Name and Address Organization Details Last Updated DateTime 02/19/2024 85 /min 115 mm[Hg] 54 mm[Hg] Not Available [facility] 02/19/2024 12:13:06 Date Recorded Heart rate Systolic blood pressure Diastolic blood pressure Provider Name and Address Organization Details Last Updated DateTime 02/23/2024 84 /min 113 mm[Hg] 64 mm[Hg] Not Available [facility] 02/23/2024 12:29:03 Date Recorded Heart rate Heart rate Systolic blood pressure Diastolic blood pressure Systolic blood pressure Diastolic blood pressure Provider Name and Address Organization Details Last Updated DateTime 63 /min 68 /min 141 mm[Hg] 64 mm[Hg] 137 mm[Hg] 68 mm[Hg] Not Available [facility] 09:10:06 Date Recorded Heart rate Systolic blood pressure Diastolic blood pressure Provider Name and Address Organization Details Last Updated DateTime 03/06/2024 74 /min 134 mm[Hg] 69 mm[Hg] Not Available [facility] 03/06/2024 09:46:07 Date Recorded Heart rate Systolic blood pressure Diastolic blood pressure Provider Name and Address Organization Details Last Updated DateTime 03/28/2024 87 /min 121 mm[Hg] 64 mm[Hg] Not Available [facility] 03/28/2024 10:13:03 Date Recorded Heart rate Systolic blood pressure Diastolic blood pressure Provider Name and Address Organization Details Last Updated DateTime 04/02/2024 94 /min 121 mm[Hg] 62 mm[Hg] Not Available [facility] 04/02/2024 09:53:07 Date Recorded Heart rate Systolic blood pressure Diastolic blood pressure Provider Name and Address Organization Details Last Updated DateTime 04/04/2024 76 /min 121 mm[Hg] 61 mm[Hg] Not Available [facility] 04/04/2024 10:38:02 Date Recorded Heart rate Systolic blood pressure Diastolic blood pressure Provider Name and Address Organization Details Last Updated DateTime 04/12/2024 86 /min 125 mm[Hg] 66 mm[Hg] Not Available [facility] 04/12/2024 10:37:02 Date Recorded Heart rate Systolic blood pressure Diastolic blood pressure Provider Name and Address Organization Details Last Updated DateTime 04/19/2024 72 /min 126 mm[Hg] 60 mm[Hg] Not Available [facility] 04/19/2024 10:27:09 Date Recorded Heart rate Systolic blood pressure Diastolic blood pressure Provider Name and Address Organization Details Last Updated DateTime 04/20/2024 92 /min 99 mm[Hg] 56 mm[Hg] Not Available [facility] 04/20/2024 09:04:02 Date Recorded Heart rate Systolic blood pressure Diastolic blood pressure Provider Name and Address Organization Details Last Updated DateTime 04/24/2024 69 /min 152 mm[Hg] 73 mm[Hg] Not Available [facility] 04/24/2024 09:47:07 Date Recorded Body height Body mass index (BMI) Body weight Heart rate Oxygen saturation Oxygen saturation in Arterial blood by Pulse oximetry Body temperature Systolic blood pressure Diastolic blood pressure Provider Name and Address Organization Details Last Updated DateTime 159.39 cm 30 kg/m2 81678.5 2 g 69 /min 96 % 96 % 98.1 [degF] 137 mm[Hg] 67 mm[Hg] Rusty gonzalez MA [facility] 11:46:01 Date Recorded Heart rate Systolic blood pressure Diastolic blood pressure Provider Name and Address Organization Details Last Updated DateTime 05/05/2024 68 /min 154 mm[Hg] 73 mm[Hg] Not Available [facility] 05/05/2024 08:16:39 Date Recorded Heart rate Systolic blood pressure Diastolic blood pressure Provider Name and Address Organization Details Last Updated DateTime 05/23/2024 65 /min 133 mm[Hg] 63 mm[Hg] Not Available [facility] 05/23/2024 09:25:36 Date Recorded Heart rate Systolic blood pressure Diastolic blood pressure Provider Name and Address Organization Details Last Updated DateTime 06/01/2024 76 /min 139 mm[Hg] 71 mm[Hg] Not Available [facility] 06/01/2024 09:53:37 Date Recorded Heart rate Heart rate Systolic blood pressure Diastolic blood pressure Systolic blood pressure Diastolic blood pressure Provider Name and Address Organization Details Last Updated DateTime 89 /min 74 /min 97 mm[Hg] 53 mm[Hg] 112 mm[Hg] 56 mm[Hg] Not Available [facility] 11:22:37 Date Recorded Body height Body mass index (BMI) Body weight Heart rate Oxygen saturation Oxygen saturation in Arterial blood by Pulse oximetry Body temperature Systolic blood pressure Diastolic blood pressure Provider Name and Address Organization Details Last Updated DateTime 159.39 cm 29.8 kg/m2 91265.9 3 g 69 /min 96 % 96 % 98.1 [degF] 133 mm[Hg] 68 mm[Hg] Pamella samuel MA [facility] 09:11:56 Date Recorded Heart rate Systolic blood pressure Diastolic blood pressure Provider Name and Address Organization Details Last Updated DateTime 06/07/2024 66 /min 139 mm[Hg] 64 mm[Hg] Not Available [facility] 06/07/2024 09:35:36 Date Recorded Heart rate Systolic blood pressure Diastolic blood pressure Provider Name and Address Organization Details Last Updated DateTime 06/08/2024 65 /min 127 mm[Hg] 66 mm[Hg] Not Available [facility] 06/08/2024 08:32:41 Date Recorded Heart rate Systolic blood pressure Diastolic blood pressure Provider Name and Address Organization Details Last Updated DateTime 06/18/2024 71 /min 143 mm[Hg] 66 mm[Hg] Not Available [facility] 06/18/2024 09:35:35 Date Recorded Heart rate Systolic blood pressure Diastolic blood pressure Provider Name and Address Organization Details Last Updated DateTime 06/23/2024 63 /min 134 mm[Hg] 63 mm[Hg] Not Available [facility] 06/23/2024 09:53:40 Date Recorded Heart rate Systolic blood pressure Diastolic blood pressure Provider Name and Address Organization Details Last Updated DateTime 06/25/2024 59 /min 134 mm[Hg] 63 mm[Hg] Not Available [facility] 06/25/2024 09:55:38 Date Recorded Heart rate Systolic blood pressure Diastolic blood pressure Provider Name and Address Organization Details Last Updated DateTime 06/28/2024 65 /min 148 mm[Hg] 68 mm[Hg] Not Available [facility] 06/28/2024 08:34:36 Social History Question Answer Notes LastModified by Organizat ion Details LastModified Time Tobacco Smoking Status Former Smoker Keeley Bowman MA [facility] 11/14/2013 15:12:21 Do You Have An Advance Directive? Yes Claribel Mejia Information not available 12/02/2021 Is Blood Transfusion Acceptable In An Emergency? Yes Information not available 12/06/2014 What Is Your Level Of Caffeine Consumption? Moderate 2 Servings Of Coffee Daily Information not available 04/30/2021 How Much Tobacco Do You Chew? None Information not available 12/06/2014 What Type Of Diet Are You Following? REGULAR Information not available 11/14/2013 Which Illicit Or Recreational Drugs Have You Used? Marijuana Information not available 04/30/2021 When Did You Quit Smoking? 6-11yearssin [employer] Information not available 04/03/2020 Live Alone Or [...] 12/13/2018 What Is Your Current Pack Years? 30ormorepack years Information not available 12/02/2021 Do You Use [...] To Smoke? No Information not available 12/06/2014 How Much Tobacco Do You Smoke? 1 PPD [email or web address] Information not available 01/02/2020 Do You Use Sunscreen Routinely? Yes Information not available 04/30/2021 How Many Years Have You Smoked Tobacco? 53 Information not available 12/06/2014 Sex: Unknown Functional Status Question Answer Note LastModified by Organizat ion Details LastModified Time Do you use any illicit or recreational drugs? Yes Information not available 06/16/2022 Do you or have you ever used any other forms of tobacco or nicotine? No Information not available 06/16/2022 What is your level of alcohol consumption? Occasional Information not available 11/14/2013 Do you or have you ever used smokeless tobacco? Never used smokeless tobacco [email or web address] Information not available 01/02/2020 Are you currently employed? No retired as of 06/22/2014 Information not available 06/07/2014 Are you able to walk? YESWOREST Information not available 12/02/2021 Are you able to care for yourself? 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 Never used electronic cigarettes Information not available 12/02/2021 What is your exercise level? None Information [...] History Condition Response Coronary Artery Disease N Gout N Other N Blood Diseases N Kidney Stones N Hyperthyroidism N Breast Cancer N mrsa exposure N Lung Disease N COPD N Depression N Hypothyroidism N Defects or Inherited Disease N Developmental or Behavioral Disorders N Breast Problem N Anesthesia Complications N Headaches/Migraines N Anxiety Disorder N Varicose Veins N Muscle, Joint, or Bone Problems N Obesity Y Vision or Eye Problems Y Arthritis N Head Injury/Concussion N Polyps N Infertility N Mental Disorder N Congenital Anomalies N Acid Reflux (GERD) Y Cancer N Stroke N ADHD N Endometriosis N High Cholesterol Y Liver Disease N Fibromyalgia N Headaches N Kidney Disease N Heart Problems N Ear or Hearing Problems N Hospitalizations Y Thyroid Problems N GI Problems N Developmental Delay N Acne N Eating Disorder N Skin Problems N Anemia N Constipation N Bladder Problems Y Mental Illness N Diabetes N Ovarian Cancer N Bedwetting N Blood Transfusions N Heart Problems/Murmur N Seizures/Epilepsy N Tuberculosis N AIDS/HIV N Congestive Heart Failure (CHF) N Eczema N Abuse/Domestic Violence N Diverticulitis N Asthma N Allergies N Reflux/GERD Y [...] virus, trivalent, preservative 8 completed Tiffanie potter [facility] 11/27/2022 12:31:13 Tdap 8 completed Tiffanie potter [facility] 11/27/2022 12:31:13 Influenza, split virus, trivalent, preservative 1 completed Tiffanie potter [facility] 11/27/2022 12:31:13 zoster live 2 completed Tiffanie potter [facility] 11/27/2022 12:31:13 Influenza, split virus, trivalent, preservative 2 completed Tiffanie potter [facility] 11/27/2022 12:31:13 Influenza, high-dose, trivalent, PF 5 completed Tiffanie potter [facility] 11/27/2022 12:31:13 Tdap 8 completed Tiffanie potter [facility] 11/27/2022 12:31:13 Influenza, adjuvanted, trivalent, PF 9 completed Tiffanie Lawrence null, [facility] 11/27/2022 12:31:13 Influenza, high-dose, trivalent, PF 0 completed Tiffanie Lawrence null, [facility] 11/27/2022 12:31:13 COVID-19, mRNA, LNP-S, PF, 30 mcg/0.3 mL dose 1 completed Tiffanie Lawrence null, [facility] 11/27/2022 12:31:13 Influenza, adjuvanted, trivalent, PF 7 completed Tiffanie Lawrence null, [facility] 11/27/2022 12:31:13 Influenza, adjuvanted, trivalent, PF 8 completed Tiffanie Lawrence null, [facility] 11/27/2022 12:31:13 COVID-19, mRNA, LNP-S, PF, 30 mcg/0.3 mL dose 1 completed Tiffanie Lawrence null, [facility] 11/27/2022 12:31:13 Influenza, high-dose, quadrivalent, PF 1 completed Tiffanie Lawrence null, [facility] 11/27/2022 12:31:13 COVID-19, mRNA, LNP-S, PF, 30 mcg/0.3 mL dose 1 completed Tiffanie Lawrence null, [facility] 11/27/2022 12:31:13 Influenza, adjuvanted, trivalent, PF 6 completed Tiffanie Lawrence null, [facility] 11/27/2022 12:31:13 pneumococcal polysaccharide PPV23 5 completed Tiffanie Lawrence null, [facility] 11/27/2022 12:31:13 Influenza, split virus, trivalent, PF 4 completed Tiffanie Lawrence null, [facility] 11/27/2022 12:31:13 Pneumococcal conjugate PCV 13 6 completed Tiffanie Lawrence null, [facility] 11/27/2022 12:31:13 Influenza, split virus, trivalent, preservative 1 completed Tiffanie Lawrence null, [facility] 11/27/2022 12:31:13 COVID-19, mRNA, LNP-S, PF, 30 mcg/0.3 mL dose, drew-sucrose 2 completed Tiffanie Lawrence null, [facility] 11/27/2022 12:31:13 Influenza, high-dose, quadrivalent, PF 2 completed Tiffanie Lawrence null, [facility] 11/27/2022 12:31:13 zoster recombinant 2 completed Tiffanie Lawrence null, [facility] 11/27/2022 12:31:13 COVID-19, mRNA, LNP-S, bivalent, PF, 50 mcg/0.5 mL or 25mcg/0.25 mL dose 2 completed Tiffanie Lawrence null, [facility] 11/27/2022 12:31:13 zoster recombinant 2 completed Tiffanie Lawrence null, [facility] 11/27/2022 12:31:13 Influenza, high-dose, quadrivalent, PF 3 completed Tiffanie Lawrence null, [facility] 11/27/2022 12:31:13 COVID-19, mRNA, LNP-S, PF, 50 mcg/0.5 mL 3 completed Tiffanie Lawrence null, [facility] 11/27/2022 12:31:13 SARS-COV-2 (COVID-19) vaccine, UNSPECIFIED 4 completed Tiffanie Howard null, [facility] 10/29/2023 08:44:29 influenza, unspecified formulation 4 completed Tiffanietoshia Lawrence null, [facility] 10/26/2023 10:03:36 Influenza, high-dose, trivalent, PF 4 completed Tiffanie potter, [facility] 10/26/2023 10:03:36 COVID-19, mRNA, LNP-S, PF, 50 mcg/0.5 mL 4 completed Tiffanie potter [facility] 10/29/2023 08:44:29 Pneumococcal conjugate PCV20, polysaccharide [id number] conjugate, adjuvant, PF 4 completed URI Fuentes, [facility] 04/26/2024 11:32:05 RSV, recombinant, protein subunit RSVpreF, adjuvant reconstituted, 0.5 mL, PF 4 completed URI Fuentes, [facility] 04/26/2024 11:32:05 Past Encounters Encounter ID Performer Location Encounter Start Date Encounter Closed Date Diagnosis/Indication Diagnosis SNOMED-CT Code Diagnosis ICD10 Code Diagnosis Note [id number] [facility] [address] [facility] [place] [id number] 12/31/2006 00:00:00 [id number] [facility] [address] [facility] [place] [id number] 03/30/2007 00:00:00 [id number] [facility] [facility] [address] [facility] [place] [id number] 03/30/2007 00:00:00 [id number] [facility] [facility] [address] [facility] [place] [id number] 05/30/2007 00:00:00 [id number] [facility] [facility] [address] [facility] [place] [id number] 05/30/2007 00:00:00 [id number] [facility] [facility] [address] [facility] [place] [id number] 02/23/2006 00:00:00 [id number] [facility] [facility] [address] [facility] [place] [id number] 02/23/2006 00:00:[id number] [facility] [address] [place] [address] 07/04/2007 00:00:00 [id number] [facility] [facility] [address] [place] [address] 07/04/2007 00:00:00 [id number] [facility] [facility] [address] [place] [address] 11/07/2007 00:00:00 [id number] [facility] [facility] [address] [place] [address] 11/07/2007 00:00:00 [id number] [facility] [facility] [address] [place] [id number] 12/28/2007 00:00:00 [id number] [facility] [facility] [address] [facility] [place] [id number] 12/28/2007 00:00:00 [id number] [facility] [facility] [address] [facility] [place] [id number] 12/28/2007 00:00:00 [id number] [facility] [facility] [address] [place] [id number] 04/02/2008 00:00:00 [id number] [facility] [facility] [address] [facility] [place] [id number] 05/22/2008 00:00:00 [id number] [facility] [facility] [address] [facility] [place] [id number] 05/22/2008 00:00:00 [id number] [facility] [facility] [address] [place] [id number] 10/11/2008 00:00:00 [id number] [facility] [facility] [address] [facility] [place] [id number] 04/09/2009 00:00:00 [id number] [facility] [facility] [address] [place] [address] 04/09/2009 00:00:00 [id number] [facility] [facility] [address] [place] [address] 04/09/2009 00:00:00 [id number] [facility] [facility] [address] [place] [address] 11/26/2009 00:00:00 [id number] [facility] [facility] [address] [facility] [address] [place] [address] 11/26/2009 00:00:00 [id number] [facility] [facility] [address] [facility] [address] [place] [address] 11/26/2009 00:00:00 [id number] [facility] [facility] [address] [facility] [place] [id number] 02/13/2010 00:00:00 [id number] [facility] [facility] [address] [facility] [place] [address] 09/24/2010 00:00:00 [id number] [facility] [facility] [address] [facility] [place] [address] 09/24/2010 00:00:00 [id number] [facility] [facility] [address] [facility] [place] [address] 09/24/2010 00:00:00 [id number] [facility] [facility] [address] [facility] [place] [address] 09/24/2010 00:00:00 [id number] [facility] [facility] [address] [facility] [place] [address] 03/31/2011 00:00:00 [id number] [facility] [facility] [address] [facility] [place] [address] 03/31/2011 00:00:00 [id number] [facility] [facility] [address] [facility] [place] [address] 10/06/2011 00:00:00 [id number] [facility] [facility] [address] [place] [address] 10/06/2011 00:00:00 [id number] [facility] [facility] [address] [place] [address] 03/16/2012 00:00:00 [id number] [facility] [facility] [address] [place] [address] 03/16/2012 00:00:00 [id number] [facility] [facility] [address] [place] [address] 04/04/2012 00:00:00 [id number] [facility] [facility] [address] [place] [address] 04/04/2012 00:00:00 [id number] [facility] [facility] [address] [facility] [place] [address] 10/11/2012 00:00:00 [id number] [facility] [facility] [address] [place] [address] 06/06/2013 00:00:00 [id number] [facility] [facility] [address] [facility] [place] [address] 06/06/2013 00:00:00 [id number] [facility] [facility] [address] [facility] [place] [address] 08/31/2013 00:00:00 [id number] [facility] [facility] [address] [place] [address] 08/31/2013 00:00:00 [id number] [facility] [facility] [address] [facility] [place] [address] 08/31/2013 00:00:00 [id number] Nahid Geiger MD Main Office [address] [facility] [address] [place] [address] 11/14/2013 15:02:44 11/14/2013 16:11:48 Adult health examination [id number] Needs infl uenza immunization 710237406 Spinal stenosis 32357031 Hyperlipidemia 95558684 Fatigue 91925262 Body mass index 30+ - obesity 481508569 [id number] Nahid Geiger MD Main Office [address] [address] [place] [address] 06/07/2014 08:55:20 06/07/2014 09:33:10 Hyperlipidemia 85418414 Spinal stenosis 93838212 S/P decompress ion in 03/2014. [id number] Nahid Geiger MD Main Office [address] [address] [place] [address] 12/06/2014 09:03:40 12/06/2014 10:14:07 Adult health examination 357048211 Z00.00 Gastroesop hageal reflux disease 123821746 K21.9 Administra tion of pneumococcal vaccine 75933438 Z23 Hyperlipidemia 50382060 E78.5 Fatigue 78698716 R53.83 Arthritis of acromioclavicular joint 550024576 M13.811 Carpal rommel moose syndrome 87871714 G56.01 Menopause present 414235 006 Z78.0 Elevated blood-pressure reading without diagnosis of hypertension 128657959 R03.0 Will monitor home readings [id number] Nahid Geiger MD Main Office [address] [address] [place] [id number] 12/19/2015 13:47:42 12/19/2015 15:19:40 Adult health examination 307752313 Z00.00 Screening for malignant neoplasm of colon 924781242 Z12.11 Screening for malignant neoplasm of lung 884388826 Z12.2 Elevated blood-pressure reading without diagnosis of hypertension 779441558 R03.0 Blood pressure in the pre-hypert ensive range. Discussed management of cardiovasc ular risks and strategies to control BP. Administra tion of pneumococcal vaccine 82228404 Z23 [id number] Nahid Geiger MD Main Office [address] [address] [place] [id number] 07/01/2016 10:24:19 07/01/2016 11:33:32 Elevated blood-pressure reading without diagnosis of hypertension 781850262 R03.0 Blood pressure in the pre-hypert ensive range. Discussed management of cardiovasc ular risks and strategies to control BP. Hyperlipidemia 07323952 E78.5 Fatigue 20694669 R53.83 [id number] Bryant Beauchamp PA-C Main Office [address] [address] [place] [address] 05/25/2017 09:43:44 05/25/2017 11:15:52 Adult health examination 197540177 Z00.00 Hyperlipidemia 50939255 E78.00 Continue current meds. Continue low fat diet . WEight loss is recommende d. Recheck fast. labs. Administra tion of tetanus vaccine 864768748 Z23 Essential hypertension 77479228 I10 Start diuretic. Test BP at and return in 4 weeks with BP log or meter. Body mass index 30+ - obesity 707783644 E66.9 Z68.35 Z68.31 Osteopenia 920918997 M85 .80 Spinal dimitri nosis of lumbar region 06466809 M48.061 stable Screening for malignant neoplasm of breast 434917578 Z12.31 [id number] Bryant Beauchamp PA-C Main Office [address] [address] [place] [address] 06/22/2017 10:21:59 06/22/2017 11:01:15 Essential hypertension 88681586 I10 Stable control now on HCTZ. PT. had labs drawn this am. Will continue low sodium diet and increase exercise activity as discussed. F/u for BP recheck in 4 m. Fatigue 33995942 R53.83 Vit D levels drawn this am. Menopause present 509005 006 N95.1 [id number] Bryant Beauchamp PA-C Main Office [address] [address] [place] [address] 11/15/2017 11:30:06 11/15/2017 12:32:46 Hypertensive disorder 84978530 I10 STable HTN on meds. Continue low sodium diet and repeat labs. Stress-rel ated problem 030005951 F43.9 PQH-2 and EDDIE performed and appeared to be very low scoring. Pt.is advised to see counselor at this point and notify me if symptoms change or worsen. Body mass index 30+ - obesity 727908857 E66.9 Z68.35 [id number] Nahid Geiger MD Main Office [address] [place] [address] 12/13/2018 10:58:32 12/13/2018 12:04:00 Adult health examination 881067799 Z00.00 vaccines are utd. Hepatitis C screening 41 9055397 Z11.59 Hypertensive disorder 38 552539 I10 BP is elevated today. PT. is advised to test at home daily and return with meter in 4-6 weeks to f/u. Hyperlipidemia 03210060 E78.00 Continue current meds. Continue low fat diet . WEight loss is recommende d. Recheck fast. labs. Insomnia 879801929 F51.0 9 continue gabapentin Impaired f asting glycemia 329200497 R73.01 Hearing loss 45556868 H9 1.93 refer for hearing test. Spinal stenosis 70444965 M48.00 stable. Gastroesop hageal reflux disease 160394440 K21.9 Takes PPI daily. MIght need repeat EGD at a time of next colonoscop y. 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 Screening for malignant neoplasm of cervix 853479819 Z12.4 Obesity 932144690 E66.9 [id number] Nahid Geiger MD Main Office [address] [address] [place] [address] 12/28/2018 10:05:13 12/28/2018 10:52:57 Tight chest 77410333 R07.89 normal EKG, chest pain related to shingles Essential hypertension 06830585 I10 Stable control now on HCTZ and Lisinopril at home. Elevated today due to postherpet ic pain . Herpes zoster 6646676 B0 2.9 Start antiviral . PT. is on Gabapentin 300 mg for her back pain. Advised to increase to 600 mg at HS.If pain persists after 3-5 days, increase to 300 mg in the am and 600 at HS. F/u 2 weeks as needed. 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 Start amlodipine -benzapril 5-10 mg daily and continue HCTZ. Test BP through [facility] [employer] and return in 6 weeks for f/u. Repeat labs 2 days prior to the visit. Spinal dimitri nosis of lumbar region 71046515 M48.061 Pt. lapsed her gabapentin prescripti on , so we will restart at 600 mg daily for 5 days, then increase to 1 in the am and 1/2 in the pm. Pt. is advised to try with smallest possible dose due to renal insufficie ncy. Renal insufficiency 7231 06895 N28.9 Avoid NSAIDs. Retest labs in 6 weeks. Increase hydration. Consider renal consult. [id number] Lety Doll MD Main Office [address] [place] [address] 11/01/2019 09:13:05 11/01/2019 12:53:36 [id number] Lety Doll MD [facility] [address] [place] [id number] 11/02/2019 09:01:03 11/03/2019 11:10:13 Hyponatremia 81757998 E87.1 sodium on day of discharge 124, will recheck. Pain of mu ltiple joints 88735856 M25.50 hx of arthritis, she is seen by rheum but is havign a lot of increased pain. Gastroesop hageal reflux disease 215185865 K21.9 increase omeprazole to BID for now, check bloodwork. Unintentio nal weight loss 756309813 R63.4 15 lbs weight loss in last 3-4 months, decreased appetite. Intermitte nt confusion 887718914 R41.0 she is on 600mg gabapentin BID. will discuss with PCP, ? decrease dosing and start trazodone for sleep? [id number] Nahid Geiger MD Main Office [address] [address] [place] [address] 11/24/2019 09:57:36 11/24/2019 10:35:05 [id number] Lety Doll MD Main Office [address] [address] [place] [address] 12/01/2019 12:54:30 12/01/2019 14:08:18 Spinal stenosis in cervical region 30187934 M48.02 was having severe pain upon admission and overmedica ting gabapentin at first admission. will refer for outpatient consult. Hallucinations 9317938 R 44.3 resolved. feeling better, does not remember 1st hospital visit and being discharged ,also does not recall most of thr 2nd hospital stay. Hyponatremia 79470965 E8 7.1 sodium low thought to be SIADH but resolved with urea. 140 on 11/22. 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 Sleep apnea 20163072 G47 .30 Essential hypertension 48891123 I10 [id number] Nahid Geiger MD Main Office [address] [facility] [address] [facility] [place] [address] 01/02/2020 10:55:38 01/02/2020 12:19:05 Adult health examination 517413424 Z00.00 vaccines are utd. Screening for malignant neoplasm of breast 575372519 Z12.31 Hyperlipidemia 19117123 E78.00 Increase Atorvastat in to 40 mg. Repeat fasting lipids in 6 weeks. 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 Martinez. Pt. takes TYlenol PRN for pain. Body mass index 25-29 - overweight 731763460 E66.3 Z68.27 Impaired f asting glycemia 239944199 R73.01 continue working and weight loss. Hypertensi ve renal disease 35218278 I12.9 BP is at goal on medication s. Chronic ki dney disease stage 2 503089234 N18.2 Gastroesop hageal reflux disease 809468861 K21.9 Takes PPI daily. MIght need repeat EGD at a time of next colonoscop y. Insomnia 043735787 F51.0 9 continue mirtazapin e. Dependent edema 49666143 4 R60.0 probably due to amlodipine . Pt. is advised to control with sodium reduction. Carpal rommel moose syndrome 51229538 G56.02 stable at this point/ [id number] Bryant Beauchamp PA-C [facility] [address] [place] [id number] 04/03/2020 08:58:32 04/03/2020 11:16:47 Hypertensive renal disease 22416097 I12.9 BP is above goal due to amlodipine lowered to 5 mg . PT. has minimal edema. Continue 5 mg and add HCTZ 25 mg daily. Continue daily amand PM bp monitoring via [employer] and f/u 4 weeks. Chronic ki dney disease stage 2 077629629 N18.2 [id number] Keo Swartz MD Main Office [address] [place] [id number] 11/05/2020 14:34:31 11/05/2020 15:15:54 Low back pain 694656023 M54.5 r/o UTI, pylonephri tis Hyperlipidemia 60444593 E78.00 check fasting labs. Impaired f asting glycemia 930695360 R73.01 continue working and weight loss.retes t A1c. Chronic ki dney disease stage 2 477872893 N18.2 [id number] Keo Swartz MD Main Office [address] [place] [id number] 11/27/2020 08:20:44 11/27/2020 16:40:44 Lumbar radiculopathy 647617950 M54.16 At this point due to radicular symptoms worsening , we will obtain a new MRI and depending on findings refer either to pain management /physiatry or back to Dr. Balbuena . Pt. will take meloxicam 15 mg daily and supplement with ES Tylenol for pain. [id number] Eric [place] MD Main Office [address] [place] [id number] 04/30/2021 14:54:44 04/30/2021 15:56:18 Adult health examination 288707168 Z00.00 vaccines are utd. recom to get shingrix. Spinal dimitri nosis of lumbar region 37661237 M48.061 F/u with Dr. Martinez and Dr. Calvin. Urge incon tinence of urine 23278998 N39.41 F/u with urologist. Osteopenia 955583548 M85 .80 repeat DEXA scan in 2022 Impaired f asting glycemia 966419743 R73.01 continue working and weight loss.retes t A1c. Chronic ki dney disease stage 2 744833320 N18.2 Varicella vaccination 68 500447 Z23 Hypertensi ve renal disease 73413825 I12.9 Continue current meds. Low sodium diet and test BP at least 3 times weekly by [facility]. F/u 3 m. repeat BMP and magnesium. Gastroesop hageal reflux disease 267250852 K21.9 Takes PPI daily. Hyperlipidemia 94519509 E78.00 continue medication s. Repeat lipids in October. Body mass index 30+ - obesity 917736968 Z68.31 Obesity 030110210 E66.9 [id number] Eric [place] MD Main Office [address] [address] 09/05/2021 10:26:48 09/05/2021 11:15:07 Hypertensive renal disease 69149083 I12.9 Increase amlodipine to 10 mg dialy and continue HCTZ 25 mg. Repeat labs today. . F/u 3 m. Chronic ki dney disease stage 2 084360012 N18.2 [id number] Bryant Beauchamp PA-C Main Office [address] [address] 12/02/2021 10:32:14 12/02/2021 11:20:50 Obstructive sleep apnea syndrome 86953995 G47.33 Having an at home sleep study done at the end of the month. Hypertensi ve renal disease 09674934 I12.9 [facility] bp data reviewed with pt. BP appears stable to continue current medication s. Continue amlodipine 10 mg daily and HCTZ 25 mg. Continue low sodium diet. F/u 3 m. Repeat cmp and magnesium today. Chronic ki dney disease stage 2 820742927 N18.2 repeat labs. [id number] Eric [place] MD Main Office [address] [place] [id number] 03/03/2022 10:44:58 03/03/2022 11:21:41 Hypertensive renal disease 79236857 I12.9 [facility] bp data reviewed with pt. BP appears stable to continue current medication s. Continue amlodipine 10 mg daily and HCTZ 25 mg. Continue low sodium diet. F/u 3 m. Repeat bmp and magnesium. Chronic ki dney disease stage 2 751545201 N18.2 repeat labs. Hyperlipidemia 61009632 E78.00 Repeat lipids prior to next visit. Impaired f asting glycemia 692623283 R73.01 continue working and weight loss.retes t A1c. Osteopenia 649983484 M85 .80 repeat DEXA scan in 2022 Urge incon tinence of urine 23975911 N39.41 Check U/A and culture. Refer to urogyn. [id number] Eric Gupta MD Main Office [address] [facility] [address] [facility] [place] [address] 05/12/2022 09:54:52 05/12/2022 10:32:34 Pre-surgery evaluation [id number] Z01.818 Pt. clinically stable to undergo bilateral cataract procedure under MAC anesthesia . Bilateral cataracts 9572 2003 H26.9 Hypertensi ve renal disease 27984823 I12.9 stable Chronic ki dney disease stage 2 491241321 N18.2 [id number] Eric Gupta MD Main Office [address] [facility] [address] [place] [id number] 06/13/2022 08:00:58 06/13/2022 09:33:35 Upper respiratory infection 14164762 J06.9 Tylenol 15mg/kg for pain or fever q6h.Throat Lozengessa lt water gargleAdeq uate hydration enforcedSa line spraysHumi difier use enforced.R est advised.Ad vised to invest in thermomete r if fever >100.4 to call will start abx.Likely viral etiology, if shortness of breath at rest will start abx.Advise d viral can take up to 2 weeks and cough 8 weeks to go away.Lin libby herlinda sentAdvise d also can use honey for [...] office visit to examin lungs/need for abx. [id number] Eric Gupta MD Main Office [address] [place] [address] 06/16/2022 11:12:48 06/16/2022 12:16:09 Upper respiratory infection 17618245 J06.9 Tylenol 15mg/kg for pain or fever q6h.Throat Lozengessa lt water gargleAdeq uate hydration enforcedSa line spraysHumi difier use enforced.R est advised.Ad vised to invest in thermomete r if fever >100.4 to call will start abx.Likely viral etiology, if shortness of breath at rest will start abx.Advise d viral can take up to 2 weeks and cough 8 weeks to go away.Lin pate sentAdkelly cassidy also can use honey for cough.Advi sed to be careful with tylenol as also in nyquil and dayquil, Advise to be careful with Pratibha D and switch to regular Pratibha as she has dx of htn and similar class of medication also in Dayquil/Ny quil.Will have triage nurse follow up Wednesday on sx as well. Acute sinusitis 68244030 J01.90 Impacted c erumen in right ear [id number] H61.21 [id number] Eric Gupta MD Main Office [address] [place] [address] 08/11/2022 14:32:39 08/11/2022 15:34:24 Adult health examination 112968545 Z00.00 vaccines are utd Advance di rective discussed with patient 113759897 Z71.89 Discussed and signed. Hypertensi ve renal disease 62290408 I12.9 stable Hyperlipidemia 76106929 E78.00 Repeat lipids prior to next visit. Chronic ki dney disease stage 2 710001736 N18.2 Pt has appointmen t scheduled for October asting glycemia 319328354 R73.01 continue working and weight loss. retest A1c. Gastroesop hageal reflux disease 835805974 K21.9 Takes PPI daily. Stable Osteopenia 341761425 M85 .80 repeat DEXA scan in 2022 Obstructiv e sleep apnea syndrome 00034613 G47.33 Pt has not been given a CPAP. It is on back order. Urge incon tinence of urine 07492847 N39.41 Continue taking Myebetriq Abnormal weight gain 161 674502 R63.5 check TSH Body mass index 25-29 - overweight 846508770 E66.3 Z68.28 continue working on more regular exercise activity and low calorie diet. Hearing loss 69575983 H9 1.93 refer for hearing test. [id number] Lety Doll MD Main Office [address] [place] [id number] 09/01/2022 13:22:05 09/01/2022 14:00:08 Muscle spasm of cervical muscle of neck 3991953756 04 M62.838 Heat/ ice 20-30 mins at a time 3-4 times per day. prednisone burst x 5 days, flexeril as needed at bedtime- no driving or alcohol with med. gentle stretching as tolerated. Will refer to PT for neck/ shoulder. Chronic ki dney disease stage 2 489018037 N18.2 Osteopenia 743511091 M85 .80 Spinal dimitri nosis of lumbar region 64502013 M48.061 [id number] [facility] [address] [place] [id number] 09/30/2022 09:09:22 09/30/2022 09:47:59 Muscle spasm of cervical muscle of neck 1140606892 04 M62.838 Heat/ ice 20-30 mins at a time 3-4 times per day. flexeril as needed at bedtime- no driving or alcohol with med. gentle stretching as tolerated. Low back pain 641636988 M54.50 [id number] Keo Swartz MD Main Office [address] [place] [id number] 11/26/2022 15:46:12 11/26/2022 16:11:58 Spinal stenosis of lumbar region 70956388 M48.061 s/p sx c dr nicolas ~ 1.5 yrs ago - encouraged pt to resume PT as diravoid nsaids d/t age/ckdcon t prn m relaxerrec alt ice/heat, cont hep, lumbar pillowcont tyl 500mg 1-2 tabs up to 3x/day prntried gbn in past - initially helpful, but then tolerant to it - didn't help any more so stoppedtrrajesh al of lyricacont f/u c pmr - dr. calvin - last seen 05.14, rec PT = ? may need neural stimulator [id number] Eric Gupta MD Main Office [address] [place] [id number] 12/11/2022 09:51:16 12/11/2022 11:31:55 Hypertensive renal disease 66197363 I12.9 stable by telemonito ring , continue current meds , lower dietary sodium. F/u 3 m. PT. was advised to increase frequency of blood pressure testing to at least every other day. Chronic ki dney disease stage 2 571035972 N18.2 encouraged to have blood draw this week. Impaired f asting glycemia 152451651 R73.01 retest A1c. cotninue low carb diet. Spinal dimitri nosis of lumbar region 84386545 M48.061 F/u with Dr. Calvin. [id number] Eric Gupta MD Main Office [address] [place] [address] 03/24/2023 13:09:20 03/24/2023 13:36:56 Hypertensive renal disease 69662730 I12.9 stable by telemonito ring , continue current meds , lower dietary sodium. PT. was advised to increase frequency of blood pressure testing to at least every other day. F/u in July. repeat bmp and magnesium in 6 weeks. Chronic ki dney disease stage 2 722074362 N18.2 F/u with renal. microalbum in is normal. Impaired f asting glycemia 032198807 R73.01 continue low carb diet. [id number] Eric Gupta MD Main Office [address] [address] 07/09/2023 10:36:18 07/09/2023 11:08:55 Hypertensive renal disease 44705332 I12.9 stable by telemonito ring , continue current meds , lower dietary sodium. Repeat bmp and magnesium levels. F/u 3 m. Chronic ki dney disease stage 2 609522837 N18.2 F/u with renal. microalbum in is normal. 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 Spinal dimitri nosis of lumbar region 00307430 M48.061 S/p nerve stimulator implantati on. [id number] Keo Swartz MD Main Office 3640 [facility] [address] [facility] [place] [address] 12/28/2023 13:20:32 12/28/2023 14:39:45 Body mass index 25-29 - overweight 079607200 E66.3 Z68.27 Continue working on more regular exercise activity and low calorie diet. Administra tion of pneumococcal vaccine 69898319 Z23 Dupuytren' s disease of palm 840753160 M72.0 refer to hand specialist . Arthritis of acromioclavicular joint 717688886 M13.819 stable. 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 Adult heal th examination 880628870 Z00.00 Recom Prevnar 20 and RSV vaccines in the pharmacy. refer to fall risk PT as STEADI risk screen is 8. Hypertensi ve renal disease 73048915 I12.9 Stable by telemonito ring, accu health data reviewed and discussed with pt. Occasional bp elevations , but are not consistent . Overall stable on current treatment. F/u 4 m. Chronic ki dney disease stage 2 257194390 N18.2 F/u with renal - has an appointmen t coming up in February. Microalbum in is normal. Hyperlipidemia 89231191 E78.00 Most recent lipid panel WNL 11/2022. Impaired f asting glycemia 926067157 R73.01 Continue low carb diet and weight loss. Repeat fasting labs and A1c. Obstructiv e sleep apnea syndrome 51172516 G47.33 Uses CPAP nightly. Osteopenia 980533029 M85 .80 Dexa scan done 2022 - showed osteopenia . Pt. is on oral Vit D. 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 Spinal dimitri nosis of lumbar region 65108248 M48.061 S/p nerve stimulator implantati on. Urge incon tinence of urine 30614802 N39.41 Continue taking Myebetriq. Gastroesop hageal reflux disease 082736861 K21.9 Takes PPI daily. Stable Hearing loss 50153767 H9 1.93 Had hearing test earlier this year - now has bilateral hearing aids. [id number] Lety Doll MD Main Office [address] [address] [place] [address] 10/18/2023 10:11:44 10/18/2023 10:31:47 Upper respiratory infection 44601520 J06.9 refill per pt request Spinal dimitri nosis of lumbar region 98310897 M48.061 refill per pt request Dysuria 70917280 R30.0 x1 week of burning sensation with urination- associated symptoms of increase urinary frequency and cloudy appearance -denies of any fever, chills, abdominal/ pelvic pain, hematuria- pt unable to provide urine sample in office-blanca l send out urinalysis with reflex to the lab for pt to drop off urine [id number] Lety Doll MD Main Office [address] [place] [address] 12/02/2023 14:56:59 12/02/2023 15:26:23 Viral upper respiratory tract infection 514861123 J06.9 1.5 weeks of symptoms; cough, congestion [...] no crackles/r aleswill provide albuterol inhaler prn [id number] Lety Doll MD Main Office [address] [address] [place] [address] 04/26/2024 11:24:41 04/26/2024 12:05:02 Hypertensive renal disease 17977509 I12.9 Telemonito ring blood pressure log reviewed with pt. Stable by telemonito ring and is stable on current meds. Pt. is advised to continue current treatment plan , DASH diet and work on weight loss. Repeat cmp and microalbum in as well as lipids. F/u 4 m. Chronic ki dney disease stage 2 805141564 N18.2 F/u with renal. Microalbum in was normal in 12/14, will repeat albumin/cr eatinine ratio. Hyperlipidemia 61631342 E78.00 Continue atorvastat in and low fat diet. Repeat fasting lipids. Impaired f asting glycemia 571107170 R73.01 Continue low carb diet and weight loss. Repeat fasting labs and A1c. [id number] Lety Doll MD Main Office [address] [place] [address] 06/06/2024 08:58:17 06/06/2024 09:37:50 Strain of rotator cuff of shoulder 526756204 S46.011A Recommend antiinflam matory and icing 3 [...] Member ID Guarantor Name 10/18/2023 1 MEDICARE B-MA: [facility] [id number] [facility] 10/18/2023 2 FORMERLY [facility] INDEMNITY PLAN - UNICARE [id number] 2 [facility] [id number] [facility] 12/02/2023 1 MEDICARE B-ID: [facility] [id number] Lesa [facility] 12/02/2023 2 FORMERLY [facility] INDEMNITY PLAN - UNICARE [id number] 2 [facility] [id number] Lesa Mejia 12/28/2023 1 MEDICARE B-ID: [facility] Lesa Mejia [id number] Lesa Mejia 12/28/2023 2 [facility] [id number] 2 Lesa Mejia [id number] Lesa Mejia 04/26/2024 1 MEDICARE B-ID: [facility] Lesa Mejia [id number] Lesa Mejia 04/26/2024 2 [facility] [id number] Lesa Mejia [id number] Lesa Mejia 06/06/2024 1 MEDICARE B-ID: [facility] Lesa Mejia [id number] Lesa Mejia 06/06/2024 2 [facility] [id number] 2 Lesa Mejia [id number] Lesa Mejia Notes Date Note Type [...] pain, fever, chills, fatigue. COLTEN GARCIA [address], [address], [facility] [place], [place] 10/18/2023 10:33:46 12/02/2023 text/html Lesa is a 78y r old F who presents for URI symptoms x1.5 weeks. Reports of initially having a cough, congestion, and fatigue. Has been completing conservative measurements and reports of feeling improvements since symptom onset. Reports the cough, congestion, and fatigue have almost completely resolved. Is experiencing occasional SOB throughout the day. COLTEN GARCIA [address], [address], [facility] [place], [place] 12/02/2023 15:29:42 12/28/2023 text/html Medicare Annual Wellness [...] pick them up Hearing:wears hearing aids; Saw foil operator earlier this year. Vision:no vision problems; Had [...] April of 2023. Pt. was discharged from [facility] care.GERD stable with PPI.Last bone density was [...] past for carpal tunnel. Bryant Beauchamp PA-C [address] [address], [place], [address], [facility] [place], [place] 12/28/2023 14:51:36 04/26/2024 text/html Hypertension F/UReported bypatient.Associated Symptoms:no dizziness; no lightheadedness; no chest pain; no shortness of breath; no palpitations; no edema; no calf pain with exertion Lifestyle:limiting/jacob iding salt;not exercising regularly Medications:taking medications as directed; no side effects from medication; checks blood pressure at home, range:Notes:Pt. is on [employer] telemonitoring. Readings reviewed and were mostly under [...] and losartan 100 mg. Bryant Beauchamp PA-C [address] [facility] [address], [place], [address], [facility] [place] 04/26/2024 12:52:12 06/06/2024 text/html 78 year old fema le c/o anterior R. shoulder pain started after she had hand surgery. Pain is worse with rotation and at night. Bryant Beauchamp PA-C [address] [facility] [address], [place], [address], [facility] 06/06/2024 11:29:04 OBGyn Episode No OBEpisode recorded.
--- NOTE | 2024-07-13 10:36 | P.CONAN_ITS ---
Documented by User: Lorenza Gonzalez NP 07/13/24 10:37 HPI - Anesthesia Eval Consult details Narrative: 78yo F for Right Intra-Articular Hip Steroid Injection s/p spinal stim impant 05/2023 with GA-ETT 7.5 PMFSH Active Problems Active Problems: All Active Problems Right hip pain (Acute) Osteoarthritis of right hip (Acute) Chronic low back pain (Acute) Lumbar degenerative disc disease (Acute) Radiculopathy, lumbar region (Acute) Postherpetic polyneuropathy (Acute) Postlaminectomy syndrome, not elsewhere classified (Acute) Past Medical History Medical History Elevated cholesterol Hypertension Arthritis Postlaminectomy syndrome, not elsewhere classified Postherpetic polyneuropathy Radiculopathy, lumbar region Family History Family history of problems with anesthesia: No Surgical History Surgical History H/O lumpectomy History of surgery History of back surgery History of Problems with Anesthesia: No Social History Social History Alcohol intake: current Alcohol intake frequency: a few times a week Patient Tobacco Use Status: Former Tobacco user Tobacco use type: Cigarette Years Smoked: 30 Second Hand Smoke Exposure: No Substance Use Type: Marijuana Have you been hit, kicked, punched, or otherwise hurt by someone within the past year? If so, by whom?: No Are you DNR?: No Advance Directives: No Advance Directives Information Provided: Yes Meds Allergies Allergy/AdvReac Type Severity Reaction Status Date / Time No Known Allergies Allergy Verified 06/29/24 09:55 Home Medications ?Medication ?Instructions ?Recorded ?Confirmed ?Last Taken ?Type atorvastatin 40 mg tablet 40 mg PO BEDTIME 02/04/23 07/14/24 07/13/24 History bupropion HCl 300 mg 24 hr tablet, 300 mg PO QAM 02/04/23 07/14/24 07/13/24 History extended release hydrochlorothiazide 25 mg tablet 25 mg PO DAILY 02/04/23 07/14/24 07/13/24 History famotidine 40 mg tablet 40 mg PO DAILY 01/07/14/24 07/13/24 History lidocaine 5 % topical patch 1 patch topical DAILY 03/09/23 07/14/24 Unknown History mirabegron 50 mg tablet,extended 50 mg PO DAILY 05/20/23 07/14/24 07/13/24 History release 24 hr (Myrbetriq) Tylenol 2 tab PO DAILY PRN Pain 06/11/23 07/14/24 07/13/24 History amlodipine 10 mg tablet 5 mg PO DAILY 06/17/23 07/14/24 07/13/24 History losartan 50 mg tablet 50 mg PO DAILY 06/17/23 07/14/24 07/13/24 History celecoxib 200 mg capsule (Celebrex) 200 mg PO DAILY 06/29/24 07/14/24 07/13/24 History Exam Height,Weight and Vital Signs: Height 5 ft 2 in Weight 77.111 kg Assessment and Plan Assessment Anesthesia Assessment: Chart Reviewed Final Anesthetic Review Family History of Problems with Anesthesia: No History of Problems with Anesthesia: No Documented by User: Anna Gasca MD 07/14/24 07:31 [facility] Past Medical History Medical History Elevated cholesterol Hypertension Arthritis Postlaminectomy syndrome, not elsewhere classified Postherpetic polyneuropathy Radiculopathy, lumbar region Surgical History Surgical History H/O lumpectomy History of surgery History of back surgery Social History Social History Alcohol intake: current Alcohol intake frequency: a few times a week Patient Tobacco Use Status: Former Tobacco user Tobacco use type: Cigarette Years Smoked: 30 Second Hand Smoke Exposure: No Substance Use Type: Marijuana Have you been hit, kicked, punched, or otherwise hurt by someone within the past year? If so, by whom?: No Are you DNR?: No Advance Directives: No Advance Directives Information Provided: Yes Meds Allergies Allergy/AdvReac Type Severity Reaction Status Date / Time No Known Allergies Allergy Verified 06/29/24 09:55 Home Medications ?Medication ?Instructions ?Recorded ?Confirmed ?Last Taken ?Type atorvastatin 40 mg tablet 40 mg PO BEDTIME 02/04/23 07/14/24 07/13/24 History bupropion HCl 300 mg 24 hr tablet, 300 mg PO QAM 02/04/23 07/14/24 07/13/24 History extended release hydrochlorothiazide 25 mg tablet 25 mg PO DAILY 02/04/23 07/14/24 07/13/24 History famotidine 40 mg tablet 40 mg PO DAILY 03/09/23 07/14/24 07/13/24 History lidocaine 5 % topical patch 1 patch topical DAILY 03/09/23 07/14/24 Unknown History mirabegron 50 mg tablet,extended 50 mg PO DAILY 05/20/23 07/14/24 07/13/24 History release 24 hr (Myrbetriq) Tylenol 2 tab PO DAILY PRN Pain 06/11/23 07/14/24 07/13/24 History amlodipine 10 mg tablet 5 mg PO DAILY 06/17/23 07/14/24 07/13/24 History losartan 50 mg tablet 50 mg PO DAILY 06/17/23 07/14/24 07/13/24 History celecoxib 200 mg capsule (Celebrex) 200 mg PO DAILY 06/29/24 07/14/24 07/13/24 History Exam Airway Mallampati Class: II TM Dist: >3cm Neck ROM: Full Heart: rrrcta Assessment and Plan Assessment Anesthesia Assessment: Anesthesia Plan Discussed Final Anesthetic Review NPO: Yes ASA Class: III Final Preanesthetic Review: No Changes in Pt Med Stat, Meds/Allgs Chart Reviewed, Consent Obtained/Reviewed and Anes Risks/Benef Reviewed Patient Risk: Intermediate Procedure Risk: Low Anesthetic Plan Anesthetic Plan: MAC: Disposition: Standard PACU
--- NOTE | ~2024-07-14 | FL_ITS ---
EXAMINATION: XR FLUOROSCOPY WITH IMAGES CLINICAL INFORMATION: Right hip pain management injection. COMPARISON: None available. TECHNIQUE: Fluoroscopy provided to: Dr. Cedeno Fluoroscopy time: 10.7 seconds DAP: 1.8361 Gycm2 Images: 1 FINDINGS: Solitary spot image taken during right hip intra-articular injection for pain management purposes. Please refer to the full procedural report for details. FL/FL guidance in OR IMPRESSION: Fluoroscopic guidance. Electronically signed by: Nate Marroquin MD 07/14/2024 08:38 AM EDT
[2024-07-14 06:10] VITALS: BP 148/70; PULSE 69; RESP 18; TEMP 36.9; O2SAT 97
[2024-07-14 06:12] VITALS: BMI 31.9
[2024-07-14] MEDS: Lactated Ringers 1,000 ML 100 ML IVCONT (06:25)
--- NOTE | 2024-07-14 07:01 | MHC.SHP ---
Pre-Procedural Eval Section A - 24 Hr Update-Section A only Date of Service: 07/14/24 The patient is an INPATIENT: No Changes since office visit: Yes Patient answered all questions The patient has been examined within 24 hours of the surgical procedure. The History & Physical has been completed within 30 days and I have reviewed it.: No Section B - Complete if H&P > 30 days Chief Complaint: Unilateral primary osteoarthritis, right hip,pain Details of Present Illness: as above Relevant Family History (Specify if Yes): No Relevant Social History: None Present Medications: see Short Stay Collaborative assessment Medical History: Significant History (OA) History of Previous Operations: No relevant previous surgery Allergies: Allergies Allergy/AdvReac Type Severity Reaction Status Date / Time No Known Allergies Allergy Verified 06/29/24 09:55 Review of Systems Sugical H&P ROS: Negative: Constitution, Cardiovascular, Respiratory, Neurological, Psychiatric, Hem-Onc, Allergic/Immunologic, Gastrointestinal, Genitourinary, Integumentary, Endocrine and Eyes/Ears/Nose/Throat and Yes, Specify: Musculoskeletal (OA, postlaminectomy syndrome,DDD) Exam Surgical H&P Exam: Normal: HEENT, Normal: Heart, Normal: Lungs, Normal: Extremities, Normal: Abdomen, Normal: Skin and Normal: Neurological Plan Diagnosis/Plan: Unchanged I have reviewed the history and physical and performed a pertinent physical examination on my patient. No changes have occurred unless specified. Time Spent With Patient Time: Total time managing care of this patient today _5___ minutes.
[2024-07-14 07:54] VITALS: BP 91/42; PULSE 74; RESP 12; TEMP 36.1; O2SAT 97
--- NOTE | 2024-07-14 08:01 | PM.OP ---
Brief Operative Note Date of Service: 07/14/24 Pre-op diagnosis: Right hip osteoarthritis Post-op diagnosis: same Procedure: Right hip intra-articular steroid injection Surgeon: Abdias Cedeno MD Anesthesia: MAC Was an [employer]ards Beveler used for this Procedure?: No Estimated blood loss (mL): 0 Condition: stable Disposition: PACU
--- NOTE | 2024-07-14 08:03 | W.PM.OPN ---
Operative Note Operative Note Date of Service: 07/14/24 Narrative: Right intra-articular hip steroid injection. Patient came to the operating room after informed consent was thoroughly explained to the patient. she was positioned on the left lateral decubitus position on the operating table with the right hip area exposed. ASA monitors were applied and the patient was sedated. Time-out was performed delineating name and date of of the patient, nature of the procedure side and site of the procedure. The patient is nondependent right hip was prepped with ChloraPrep and draped with sterile utility towels. C-arm was brought over the operating field and picture of the right hip joint was demonstrated on the screen. In the projection of the right trochanter 5 mm above the most superior point of right trochanter projection to the skin injection of the local anesthetic mixture of lidocaine 2% and ropivacaine 0.5% one-to-one was performed forming a skin wheal. After that 22 gauge 5 in needle was inserted through the skin wheal and advanced toward the joint under the anterior posterior and lateral views intermittently. When the tip of the needle entered the silhouette of the joint injection of the contrast was performed demonstrating arthrogram. After that 4 cc of ropivacaine 0.5% mixed with Kenalog 40 mg was performed into the joint. The needle was removed sterile Band-Aid was applied. Patient tolerated procedure well.
[2024-07-14 08:09] VITALS: BP 132/65; PULSE 67; RESP 14; TEMP 36.1; O2SAT 97
== END 2024-07-14 08:37 | disposition home or self-care (01) ==
PROVIDERS: PCP Physician Assistant Medical; Visit Provider Anesthesiology
PROC: (CPT 20610; principal; 2024-07-14 07:30)
DX: M25.551 Pain in right hip (principal); M16.11 Unilateral primary osteoarthritis, right hip; M96.1 Postlaminectomy syndrome, not elsewhere classified; I10 Essential (primary) hypertension; E78.00 Pure hypercholesterolemia, unspecified; B02.23 Postherpetic polyneuropathy; M51.369 Other intervertebral disc degeneration, lumbar region without mention of lumbar back pain or lower extremity pain; M54.16 Radiculopathy, lumbar region; G89.29 Other chronic pain; M54.50 Low back pain, unspecified; Z79.899 Other long term (current) drug therapy; Z98.890 Other specified postprocedural states; Z87.891 Personal history of nicotine dependence
CPT/HCPCS: 20610; J2003; J2704; J2795; J3010; J3301; Q9967

== ENCOUNTER → 2024-07-14 05:47 | Outpatient (BNV) | payer MEDICARE, OTHER, SELFPAY | PROVIDERS: PCP Physician Assistant Medical; Visit Provider Anesthesiology | DX: M16.10 Unilateral primary osteoarthritis, unspecified hip (principal) | CPT/HCPCS: 20610; 77002 ==

== ENCOUNTER 2024-08-17 09:39 | Outpatient (AMB) | payer MEDICARE, OTHER, SELFPAY ==
[2024-08-17 09:59] VITALS: BP 162/77; PULSE 82; O2SAT 95; BMI 31.6
--- NOTE | 2024-08-17 09:59 | A.OFFVIS_ITS ---
Vital Signs 08/17/24 09:59 Height 5 ft 2 in Weight 173 lb BMI 31.6 BP 162/77 H Blood Pressure Location Rt brachial Position Sitting Pulse 82 Pulse Source Pulse Oximeter Pulse Oximetry (%) 95 Oxygen Delivery Method Room Air Intake Visit Reasons: S/p (R) Intraarticular Hip Steroid Inj 07/14/24 Bicycle Messenger Required: No Allergies No Known Allergies Allergy (Verified 08/17/24 10:01) HPI Comments Details: Lesa is in my office today after right intra-articular steroid injection. She reported excellent pain relief in the right groin in the right hip area. She reports 80% pain improvement. She reports excellent mobility good activities of daily living excellent pain with mobility. However on the background of reduced pain on the right complains on pain in the left thigh about mid level of the thigh. Is in the projection of iliotibial band and palpation of the iliotibial band is tender. Most likely she has iliotibial band syndrome on the left side. I recommended her to try to continue Celebrex for short period of time no more than 1 week- it is prescribed to her by primary care physician, however if it is not helpful stop Celebrex altogether. I recommend her to try topical capsaicin as well as topical lidocaine [id number]. I also requested her to give her a call to Frank, medical claims representative of [employer] and tried to apply from her spinal cord stimulator paresthesia stimulation on the left side thigh.. status post [employer] SCS implant on 05/11/2023. She reports that [employer] SCS does not help her pain in the right hip however she states that it helps with the pain in the lower lumbar area.. Past Procedures: 05/14/23: Lumbar SCS Trial-85% pain relief 03/02/23: Caudal KATLYN with catheter- 100% pain relief for 2 days, ongoing 40% pain relief PRIOR: Patient is a pleasant 77 years old female with past medical history of lumbar fusion (2020 Dr. Zheng) Co-flex device implant by Dr. Balbuena, arthritis, history of shingles with residual post herpetic neuralgia pain presents today for evaluation for potential spinal cord stimulator. She was referred to our office by Dr. Salguero at [facility]. Her pain is localized to the lower back with radiation to both legs. Pain is aggravated with prolonged standing and walking and relieved with rest or sitting down. Reports occasional and intermittent stabbing and burning pain in the projections of left T9-T10 dermatomes. Back pain is constant and rated at 6/10 on average after taking her medications for pain. She also uses marijuana which she grows at home. Pain affects her daily activities, functioning, mobility and social activities. Denies any fever, weight loss, abdominal or groin pain, weakness, foot drop, bladder or bowel dysfunction or saddle anesthesia. Location Lower back radiates to upper thighs Duration Chronic pain for many years, worse after last back surgery. PHN >15 years Characteristics of symptom or complaint Stabbing, burning, aching, sharp, crushing, wrenching, tight, radiating Aggravating or associated factors Standing, walking, changing positions, cold weather changes, stress Relieving factors Oxycodone, Tylenol, sitting down, lidocaine patches, gabapentin, Flexeril Treatment Injections, PT- completed 2 weeks, massage therapy [facility] Medical History Elevated cholesterol Hypertension Arthritis Postlaminectomy syndrome, not elsewhere classified Postherpetic polyneuropathy Radiculopathy, lumbar region Surgical History H/O lumpectomy History of surgery History of back surgery Social History Alcohol intake: current Alcohol intake frequency: a few times a week Patient Tobacco Use Status: Former Tobacco user Tobacco use type: Cigarette Years Smoked: 30 Second Hand Smoke Exposure: No Substance Use Type: Marijuana Review of Systems Const All systems reviewed & are unremarkable except as noted in HPI and below Physical Exam Vital Signs: Last Vital Signs Pulse 82 08/17/24 09:59 BP 162/77 H 08/17/24 09:59 Pulse Ox 95 08/17/24 09:59 Oxygen Delivery Method Room Air 08/17/24 09:59 BMI result Body Mass Index 31.6 General: Appears afebrile. Alert and oriented. Mood and affect appropriate. Follows and participates in conversation appropriately. Respiratory effort is unlabored. No cough. Able to transition from sit to stand unassisted. Uses cane with ambulation. Ambulates with bilaterally normal heel strike and toe off. Chest Other: Mild TTP and allodynia in the projection of left T9-T10 dermatomes Chest palpation & inspection: normal inspection of the chest, no localized rib tenderness, tenderness no rib xxx, no clavicular xxx, no sternal xxx and no sternoclavicular joint xxx and No rash Back/Spine/Pelvis Other: Limited lumbar ROM due to pain, worse pain with extension. Can flex forward to 65-75 degrees and extend to 5-10 degrees before experiencing lumbar pain. Demonstrates 5/5 strength of quadriceps bilaterally as well as flexion/dorsiflexion of bilateral feet against resistance. 2+ pedal pulses bilaterally. Seated straight leg rise with dorsiflexion negative bilaterally. Diminished patellar and achilles reflexes bilaterally. Facet loading test positive bilaterally. Matt sign, Yg?s, Pelvic compression and Stinchfield tests are negative bilaterally. No groin pain with I/E hip rotations. Valsalva maneuver negative. Cervical Spine: cervical ROM normal and No Cervical spine tenderness Thoracic/Lumbar Spine: thoracic and lumbar spine normal to inspection, Thoracic/lumbar spine scar(s), Lasegue's sign negative, straight leg raise negative bilaterally, pain with thoraco-lumbar ROM, paraspinal muscle tenderness, thoraco-lumbar ROM limited, No thoracic spinal tenderness and lumbar spinal tenderness at L4 and at L5 Pelvis: no buttock tenderness Sacroiliac joints: bilaterally nontender Extrem Other: Lateral and medial rotation of the right thigh severe discomfort in the right groin. Assessment & Plan Assessment & Plan (1) Osteoarthritis of right hip: Code(s): M16.11 - Unilateral primary osteoarthritis, right hip Category: Medical (2) Right hip pain: Code(s): M25.551 - Pain in right hip Category: Medical (3) Lumbar degenerative disc disease: Code(s): M51.36 - Other intervertebral disc degeneration, lumbar region Category: Medical (4) Radiculopathy, lumbar region: Code(s): M54.16 - Radiculopathy, lumbar region Category: Medical (5) Postlaminectomy syndrome, not elsewhere classified: Code(s): M96.1 - Postlaminectomy syndrome, not elsewhere classified Category: Medical (6) Chronic low back pain: Code(s): M54.50 - Low back pain, unspecified; G89.29 - Other chronic pain Category: Medical Plan Status post [employer] SCS implant April of 2023. Excellent results of intra-articular right hip injection. Now on the background of reduced pain in the right hip she complains on pain in the projection of the iliotibial band on the left. She will try topicals on this side. She will contact [employer] medical claims representative and request him to adjust stimulation to make paresthesia stimulation in the projection of the left thigh. Also I recommended her to stop Celebrex if continuation for this medication in short period of time will not help her pain. It is prescribed to her by primary care physician. Patient Instructions: I here by testify that I spent 32 minutes in conversation with this patient as well as planning her care and organizing this note. Coding Level of Care Code Est Pt Level 4 (42071) Diagnoses Osteoarthritis of right hip M16.11 Right hip pain M25.551 Lumbar degenerative disc disease M51.36 Radiculopathy, lumbar region M54.16 Postlaminectomy syndrome, not elsewhere classified M96.1 Chronic low back pain M54.50; G89.29
--- OUTSIDE RECORDS SUMMARY | 2024-08-17 10:46 | XMS_ITS | Data Portability ---
Author Organization [place] - [facility], [facility] Address [address] [place] [address] Care Team Providers Care Scientific Laboratory Supervisor Name Role Phone BRYANT BEAUCHAMP Primary Care Provider [phone] Assessment No assessment recorded. Plan of Treatment Reminders Order Date Submit Date Provider Last Modified By Organization Details Last Modified Time Details Appointments None recorded. Lab None recorded. Referral occupationa l therapist referral - Diagnosis: Dupuytren Contracture RIGHT INDEX FINGER, FLEXOR TENOSYNOVIT IS RIGHT THUMB AND RIGHT MIDDLE FINGER Diagnosis Code 728.6 EVALUATE & Rx Pre op and 48 hour Post op Dupuytren Protocol 2023 024 [email or web address] Not available 4 10:00:22 Procedures None recorded. Surgeries fasciectomy , partial palmar with release of digit (SURG) 2023 024 [email or web address] 15 Not available 4 10:00:05 Imaging XR, shoulder, 2 or more view - R shoulder 4 view rm 214 2024 025 [facility], [address], [facility] [address], [place], [address], 5 15:09:41 Medication Orders None recorded. Patient TargetsNo targets recorded. Patient InstructionsNo instructions recorded. Reason for Referral Occupational Therapist Refer ral for Dupuytren's contracture of finger Diagnosis: Dupuytren Contracture RIGHT INDEX FINGER, FLEXOR TENOSYNOVITIS RIGHT THUMB AND RIGHT MIDDLE FINGERDiagnosis Code 728.6EVALUATE & RxPre op and 48 hour Post op Dupuytren Protocol Referring Physician: Tony Yap, Orthopedic Surgery, Encounter Date: 01/03/2024 Results Created Date Observation Date Name Description Value Unit Range Abnormal Flag Note LastModifiedBy Organization Detail LastModifiedTime 07/01/19 25 06/30/2024 XR, shoul tiki, 2 or more view http:/ [email or web address] ?Encry pted=s hAaTro YD8dLq bEUv6g %2BXZw aYqtaq 0bqfl% 2Fg9IQ a4ajBk vP9nXo QUaueC m3YtLR FvZlgJ JJ8mAn HZtai3 0k3617 AC0Kla nWAVaW lKiQtr MwF INTERFACE [facility] [address] [facility] [address], [place], [address], 06/30/2024 14:40:53 07/01/19 25 06/30/2024 XR, shoul tiki, 2 or more view http:/ [email or web address] ?Encry pted=s hAaTro YD8dLq bEUv6g %2BXZw aYqtaq 0bqfl% 2Fg9IQ a4ajBk vP9nXo QUaueC m3YtLR FvZlgJ JJ8mAn HZtai3 5k4594 AC0Kla nWAVaW lKiQtr MwF INTERFACE [facility] [address] [facility] [address], [address], 06/30/2024 14:40:55 Result Notes Documentation Provider Name and Address Organization Details Recorded Time Xr, Shoulder, 2 Or More View : [email or web address]? Encrypted=kcKrFnmDN0wVujZ Uv6g%7CXOzsXvtwj7djyq%2Fg 0GRa3kwFuuH5eDyROtokBg8Qy WBTiHxqIJM1lXhCTiyx69x495 2NJ7KujkJGOtKuZxMexVeU Not Available [facility] 06/30/2024 14:40: 54 Xr, Shoulder, 2 Or More View : [email or web address]? Encrypted=srSoLlgZQ5rVmdJ Uv6g%1NGKthReiba2tzay%2Fg 5IRd6tdYbpX5cQxEPbzgPy2Ne KTQkUxsGDR3qZnHHnad58w475 2IK1PxfpODPnXzAbQyfWtR Not Available [facility] 06/30/2024 14:40: 55 Problems Name Problem SNOMED Code Status Onset Date Resolution Date Notes Provider Name and Address Organization Details Recorded Time No complaint s 201556369 Active Status: 'I'; Not Available [facility] 4 09:16:05 Carpal tunnel syndrome of right wrist 527293667935 108 Active 2014 Problem Code: G56.01; Problem Code Type: ICD-10; Status: 'A'; Not Available [facility] 4 11:28:08 Problem Notes None recorded. Procedures Surgical History Date Name Laterality Status Provider Name and Address Organization Details Recorded Time 5 Sports Shoulder completed Tasha Lopez MD [address] [facility] [address], [place], [address], [facility] 06/30/2024 15:09:05 5 Hand Surgery completed BHANU RICE [facility] 06/30/2024 14:33:01 Imaging Results None recorded. Procedure Notes None recorded. Medical Equipment None Reported. Allergies Allergen ID Allergen Name Allergen Category Reaction Reaction Severity Criticality Documentation Date Start Date Code Code System Note Provider Name and Address Organization Details Recorded Time 785269 Hayfever medicatio n other moderate Not available 06/30/2024 11402 UNK BHANU RICE [facility] 5 14:33:00 Medications Name Sig Start Date Stop Date Status Note LastModified by Organization Details LastModified Time losartan 50 mg tablet TAKE 1 TABLET BY MOUTH EVERY DAY 06/30 completed Not Available Not Available Not Available celecoxib 200 mg capsule TAKE 1 CAPSULE BY MOUTH EVERY DAY active Not Available Not Available No t Available atorvastati n 40 mg tablet TAKE 1 TABLET BY MOUTH EVERY DAY active Not Available Not Available No t Available anastrozole 1 mg tablet TAKE 1 TABLET BY MOUTH EVERY DAY 06/30 completed Not Available Not Available Not Available meloxicam 15 mg tablet 1 TAB BY MOUTH ONCE A DAY NEEDED FOR PAIN, TAKE WITH FOOD active Not Available Not Available No t Available famotidine 40 mg tablet TAKE 1 TABLET BY MOUTH EVERYDAY AT BEDTIME active Not Available Not Available No t Available amlodipine 5 mg tablet TAKE 1 TABLET BY MOUTH EVERY DAY 06/30 completed Not Available Not Available Not Available sulfamethox azole 800 mg-trimetho prim 160 mg tablet TAKE 1 TABLET BY MOUTH EVERY 12 HOURS DIRECTED FOR 3 DAYS 06/30 completed Not Available Not Available Not Available famotidine 20 mg tablet TAKE 1 TABLET (20 MG TOTAL) BY MOUTH ONCE DAILY 06/30 completed Not Available Not Available Not Available exemestane 25 mg tablet TAKE 1 TABLET BY MOUTH EVERY DAY active Not Available Not Available No t Available amlodipine 10 mg tablet TAKE 1 TABLET BY MOUTH EVERY DAY active Not Available Not Available No t Available cephalexin 500 mg capsule PLEASE SEE ATTACHED FOR DETAILED DIRECTION S 06/30 completed Not Available Not Available Not Available lidocaine 5 % topical patch APPLY 1-3 TOPICAL EVERY DAY FOR 30 DAYS. 12 HOURS ON/12 HOURS OFF active Not Available Not Available No t Available gabapentin 300 mg capsule PLEASE TAKE 1 CAPSULE IN THE EVENING NEEDED FOR THE PAIN active Not Available Not Available No t Available hydrochloro thiazide 25 mg tablet TAKE 1 TABLET BY MOUTH EVERY DAY active Not Available Not Available No t Available albuterol sulfate HFA 90 mcg/actuati on aerosol inhaler INHALE 2 PUFFS INTO THE LUNGS EVERY 4 HOURS NEEDED active Not Available Not Available No t Available losartan 100 mg tablet TAKE 1 TABLET BY MOUTH EVERY DAY active Not Available Not Available No t Available oxycodone 5 mg tablet TAKE 1 TABLET BY MOUTH EVERY 6 HOURS FOR 1 DAYS NEEDED FOR PAIN 06/30 completed Not Available Not Available Not Available bupropion HCl XL 300 mg 24 hr tablet, extended release TAKE 1 TABLET BY MOUTH EVERY DAY active Not Available Not Available No t Available oxycodone HCl-oxycodo ne-ASA as directed 1 TABLET Q 4 HOURS PRN PAIN DO NOT DIRVE WHILE ON THIS MED 06/30 completed Statu s: 'Curr ent'; Not Available Not Available Not Available Myrbetriq 50 mg tablet,exte nded release TAKE 1 TABLET BY MOUTH EVERY DAY DO NOT CRUSH OR CHEW active Not Available Not Available No t Available Vitals Date Recorded Body height Body mass index (BMI) Body weight Provider Name and Address Organization Details Last Updated DateTime 06/30/2024 160.02 cm 27.5 kg/m2 86279.82 g BHANU KAPLANRO Replaced by [facility] 06/30/2024 14:33:34 Date Recorded Body height Body mass index (BMI) Body weight Provider Name and Address Organization Details Last Updated DateTime 01/03/2024 160.02 cm 27.5 kg/m2 02367.82 g CHESTER FRANKO Replaced by [facility] 01/03/2024 14:20:23 Social History Question Answer Notes LastModified by FRESS Details LastModified Time Tobacco Smoking Status Former Smoker BHANU DWAYNE potter Replaced by [facility] 06/30/2024 14:33:01 When Did You Quit Smoking? 16+yearssince lastcigarette Information not available 06/30/2024 What Is Your Relationship Status? Information not available 06/30/2024 How Many Years Have You Smoked Tobacco? 40 Information not available 06/30/2024 Sex: Unknown Functional Status Question Answer Note LastModified by [facility] Details LastModified Time How many times per week do you consume alcohol? 1-2 times per week Information not available 06/30/2024 Do you use any illicit or recreational drugs? Yes Information not available 06/30/2024 Do you or have you ever used any other forms of tobacco or nicotine? Yes Information not available 06/30/2024 Do you or have you ever used e-cigarettes or vape? Never used electronic cigarettes Information not available 06/30/2024 Mental Status None recorded. Family History Nothing Reported. Medical History Condition Response Allergies/Hayfever Y Kidney/Bladder Problems Y Autoimmune disease Y Arthritis Y Acid Reflux (GERD) Y Cancer Y Sleep Apnea Y Hypertension Y Gynecological HistoryNo gynecological history recorded. Obstetrics History GPAL:G 0 P 0 0 0 0 Past Encounters Encounter ID Performer Location Encounter Start Date Encounter Closed Date Diagnosis/Indication Diagnosis SNOMED-CT Code Diagnosis ICD10 Code Diagnosis Note [id number] Tony Yap MD [facility] [address] [place] [address] 01/03/2024 13:43:49 02/03/2024 10:59:51 Dupuytren's contracture of finger 493177695 M72.0 Triggering of digit 2399 96253 M65.876 [id number] MD [facility] - [address] [place] [address] 06/30/2024 13:52:21 07/18/2024 15:09:40 Pain of right shoulder joint 9948133244 2739152 M25.511 Health Concerns Section Related Observation LastModified by Organization Detai ls LastModified Time None Recorded Concern Status LastModified by Organization Details LastModified Time None Recorded Advance Directives Directive None Recorded Payers Insurance Date Sequence Insurance Name Policy Number Policy Kwon Covered Member ID Kwon Member ID Guarantor Name 06/30/2024 1 [place]: [facility] [employer] Lesa Mejia [id number] Lesa Mejia 07/18/2024 2 [facility] - [employer] SERVICES PLAN F (MEDICARE SUPPLEMENT) [id number] Lesa Mejia [id number] Lesa Mejia Notes Date Note Type Note Provider Name and Address Organization Details Recorded Time 01/03/2024 text/html Diagnosis: 1. Dupuytren's disease right index finger2. Flexor tenosynovitis right middle finger3. Flexor tenosynovitis right thumbThe patient presents at her request. She has developed a contracture of her right index finger without history of trauma or lives at event. She has triggering of her right middle finger which is been resistant to corticosteroid injection therapy. She has early triggering of her right thumb with a tender nodule at the A1 daja.Past family, medical, social history and review of systems has been reviewed, updated and is located in the patient s chart.Examination: Healthy appearing patient in no apparent distress. Alert and oriented.HEENT: Normocephalic and atraumatic.Heart: Regular rate and rhythm.Lungs: Clear to auscultation bilaterally.Abdomen: Soft and nontender.Neurovascul ar exam: Intact bilateral upper extremitiesExtremitie s: Pretendinous and spiral cord to right index finger with 45 PIP contracture. Crepitus at the A1 pulleys of the right middle finger and right thumb with motion. Provocative testing of her bilateral wrists and digits reveal no instability. No atrophy in either upper extremity. Brisk capillary refill in all digitsPlan:The patient and I discussed the situation at length. I described the nature of Dupuytren's disease and the treatment options. We discussed the nature of surgical intervention and its potential risks including infection, injury to blood vessels, tendons, nerves, incomplete relief of the contacture, stiffness of the fingers, potential need for skin graft and recurrence of the Dupuytren's. All questions were answered. The patient has consented to a partial palmar fasciectomy of the right index finger.We also discussed her flexor tenosynovitis. She would like to proceed with a flexor tenosynovectomy of the right thumb and right middle finger. We discussed the risks involved including infection, injury to blood vessels, tendons, nerves, recurrence of the triggering and stiffness of her fingers. All her questions were answered. Tony Yap MD [address] [place] [address] [address], [place], [address], [facility] 01/03/2024 16:48:59 06/30/2024 text/html Chief Complaint: Right shoulder pain HPI: This is a 78-year-old nsfsb-iyxj-vabkehkt retired [employer] employee who presents to clinic today for evaluation of right shoulder complaints. She underwent a trigger finger surgery 05/16/2024 and notes that she woke up from surgery with pain in the right shoulder, getting gradually worse over the ensuing few days. Theories are that this may have been related to tourniquet or positioning. Initially required support to be able to move the arm, this has improved over time. Still having pain, however. Pain is felt over the anterolateral aspect of the shoulder, occasionally anteriorly. This is exacerbated by overhead reach and lifting. Denies crepitus. Denies numbness or tingling. She is been taking Celebrex and Tylenol for this. PMH: Arthritis, hypertension, inflammatory joint disease, hypercholesterolemia, sleep apnea, kidney/bladder problems, history of cancer PSH: Lumbar surgery x 2, implant in lumbar spine 2022, trigger finger surgery 05/16/2024 Meds: Albuterol, amlodipine, famotidine, exemestane, hydrochlorothiazide, losartan, Myrbetriq, gabapentin Allergies: No known drug allergies Social Hx: Retired [employer] employee. Single, with children. Drinks alcohol. Denies tobacco use. Family Hx: noncontributory ROS: Negative x12 except as noted above in the HPI Past family, medical, social history and review of systems have been reviewed and updated on the medical history sheet saved to the patient's chart. A 12-point review of systems is negative x12 except as noted above and/or on the medical history sheet. Examination: Pleasant 78-year-old woman in no acute distress. 5 feet 3 inches, 155 pounds. On exam of the right upper extremity, skin over the shoulder is intact. No effusion, no gross atrophy. Tender to palpation of the bicipital groove. Active and passive forward elevation 165, external rotation 65, internal rotation L4. 5/5 strength with scaption, IR, ER. Does have some pain with empty can testing as well as with external rotation. Pain, no weakness with bearhug maneuver. Positive Yergason's. Sensation intact in an axillary distribution. Fires EPL, FPL and intrinsics. Hand is warm and well-perfused. Imaginv of the Right shoulder ordered and obtained at [facility] today were reviewed during the visit. These demonstrate good preservation of glenohumeral joint space. Moderate AC arthrosis. Type II acromion. Humeral head centered on axillary view. No proximal migration humeral head. No dystrophic calcium deposition. Impression: 78-year-old hnqum-sxrw-lnlgwdox woman with right shoulder pain following hand surgery 05/16/2024. Exam today suspicious for inflammation and/or strain of anterior superior structures including rotator cuff and/or biceps. Plan: Findings and options for management reviewed with the patient. Would recommend starting with a course of conservative treatment. She has gotten great relief from Celebrex and the certainly continue this. Will forward with cortisone injection today. Encourage gentle range of motion exercises for the shoulder. For occasional aches and pains, the patient can take qpkm-cah-jkdmphe medication such as Tylenol or anti-inflammatories as needed; risks and benefits of medication discussed. Should call with more persistent pain. We will leave follow up open ended at this point. However should symptoms worsen or fail to improve to the patient's satisfaction, she is encouraged to give the office a call to be seen back for further evaluation and management. [employer] [facility] speech recognition blood donor recruiter software was used to create portions of this document. An attempt at proofreading has been made to minimize errors. Please call for corrections. Tasha Lopez MD [address] [place] [address] [address] [facility], [place], [address], [facility] 07/18/2024 14:35:18 OBGyn Episode No OBEpisode recorded.
== END 2024-08-17 10:30 | disposition home or self-care (01) ==
LOC: HO.PMC 09:40
PROVIDERS: PCP Physician Assistant Medical; Visit Provider Anesthesiology
DX: M16.11 Unilateral primary osteoarthritis, right hip (principal); M25.551 Pain in right hip; M51.369 Other intervertebral disc degeneration, lumbar region without mention of lumbar back pain or lower extremity pain; M54.16 Radiculopathy, lumbar region; M96.1 Postlaminectomy syndrome, not elsewhere classified; M54.50 Low back pain, unspecified; G89.29 Other chronic pain
CPT/HCPCS: 99214

== ENCOUNTER → 2024-08-17 09:39 | Outpatient (BNVA) | payer MEDICARE, OTHER, SELFPAY | PROVIDERS: PCP Physician Assistant Medical; Visit Provider Anesthesiology | DX: M16.11 Unilateral primary osteoarthritis, right hip (principal); M25.551 Pain in right hip; M51.369 Other intervertebral disc degeneration, lumbar region without mention of lumbar back pain or lower extremity pain; M54.16 Radiculopathy, lumbar region | CPT/HCPCS: 99212 ==

== ENCOUNTER 2024-11-01 14:36 | Outpatient (AMB) | payer MEDICARE, OTHER, SELFPAY ==
[2024-11-01 14:37] VITALS: BP 157/65; PULSE 86; RESP 16; O2SAT 94; BMI 29.3
--- NOTE | 2024-11-01 14:37 | A.OFFVIS_ITS ---
Vital Signs 11/01/24 14:37 Height 5 ft 2 in Weight 160 lb BMI 29.3 BP 157/65 H Blood Pressure Location Rt brachial Position Sitting Respiration 16 Pulse 86 Pulse Source Pulse Oximeter Pulse Oximetry (%) 94 Oxygen Delivery Method Room Air Intake Visit Reasons: Procedure Discussion: Dx SI Joint Inj Type Copy Examiner Required: No Accompanied by: Daughter Allergies No Known Allergies Allergy (Verified 11/01/24 14:44) HPI Comments Details: Lesa is back in my office to discuss further treatment for left iliotibial band syndrome. Sensation of the painful band from the left trochanter to the left knee. Unfortunately not very much I can offer to this patient with this condition short of serious physical therapy. I will send her to physical therapy in [facility], I will request him to try physical therapy exercises as well as a iontophoresis with potassium iodine as well as deep warming of the muscles with ultrasound. She has good results of the intra-articular left hip steroid injection, her pain in the groin is all gone. status post Nevro SCS implant on 05/11/2023. She reports that Nevro SCS does not help her pain in the right hip however she states that it helps with the pain in the lower lumbar area.. Past Procedures: 05/14/23: Lumbar SCS Trial-85% pain relief 03/02/23: Caudal KATLYN with catheter- 100% pain relief for 2 days, ongoing 40% pain relief PRIOR: Patient is a pleasant 77 years old female with past medical history of lumbar fusion (2020 Dr. Zheng) Co-flex device implant by Dr. Balbuena, arthritis, history of shingles with residual post herpetic neuralgia pain presents today for evaluation for potential spinal cord stimulator. She was referred to our office by Dr. Salguero at [facility] . Her pain is localized to the lower back with radiation to both legs. Pain is aggravated with prolonged standing and walking and relieved with rest or sitting down. Reports occasional and intermittent stabbing and burning pain in the projections of left T9-T10 dermatomes. Back pain is constant and rated at 6/10 on average after taking her medications for pain. She also uses marijuana which she grows at home. Pain affects her daily activities, functioning, mobility and social activities. Denies any fever, weight loss, abdominal or groin pain, weakness, foot drop, bladder or bowel dysfunction or saddle anesthesia. Location Lower back radiates to upper thighs Duration Chronic pain for many years, worse after last back surgery. PHN >15 years Characteristics of symptom or complaint Stabbing, burning, aching, sharp, crushing, wrenching, tight, radiating Aggravating or associated factors Standing, walking, changing positions, cold weather changes, stress Relieving factors Oxycodone, Tylenol, sitting down, lidocaine patches, gabapentin, Flexeril Treatment Injections, PT- completed 2 weeks, massage therapy [facility] Medical History Elevated cholesterol Hypertension Arthritis Postlaminectomy syndrome, not elsewhere classified Postherpetic polyneuropathy Radiculopathy, lumbar region Surgical History H/O lumpectomy History of surgery History of back surgery Social History Alcohol intake: current Alcohol intake frequency: a few times a week Patient Tobacco Use Status: Former Tobacco user Tobacco use type: Cigarette Years Smoked: 30 Second Hand Smoke Exposure: No Substance Use Type: Marijuana Review of Systems Const All systems reviewed & are unremarkable except as noted in HPI and below Physical Exam Vital Signs: Last Vital Signs Resp 16 11/01/24 14:37 BMI result Body Mass Index 31.8 General: Appears afebrile. Alert and oriented. Mood and affect appropriate. Follows and participates in conversation appropriately. Respiratory effort is unlabored. No cough. Able to transition from sit to stand unassisted. Uses cane with ambulation. Ambulates with bilaterally normal heel strike and toe off. Chest Other: Mild TTP and allodynia in the projection of left T9-T10 dermatomes Chest palpation & inspection: normal inspection of the chest, no localized rib tenderness, tenderness no rib xxx, no clavicular xxx, no sternal xxx and no sternoclavicular joint xxx and No rash Back/Spine/Pelvis Other: Limited lumbar ROM due to pain, worse pain with extension. Can flex forward to 65-75 degrees and extend to 5-10 degrees before experiencing lumbar pain. Demonstrates 5/5 strength of quadriceps bilaterally as well as fle xion/dorsiflexion of bilateral feet against resistance. 2+ pedal pulses bilaterally. Seated straight leg rise with dorsiflexion negative bilaterally. Diminished patellar and achilles reflexes bilaterally. Facet loading test positive bilaterally. Matt sign, Yg?s, Pelvic compression and Stinchfield tests are negative bilaterally. No groin pain with I/E hip rotations. Valsalva maneuver negative. Cervical Spine: cervical ROM normal and No Cervical spine tenderness Thoracic/Lumbar Spine: thoracic and lumbar spine normal to inspection, Thoracic/lumbar spine scar(s), Lasegue's sign negative, straight leg raise negative bilaterally, pain with thoraco-lumbar ROM, paraspinal muscle tenderness, thoraco-lumbar ROM limited, No thoracic spinal tenderness and lumbar spinal tenderness at L4 and at L5 Pelvis: no buttock tenderness Sacroiliac joints: bilaterally nontender Extrem Other: Lateral and medial rotation of the right thigh severe discomfort in the right groin. Assessment & Plan Assessment & Plan (1) Iliotibial band syndrome, left leg: Code(s): M76.32 - Iliotibial band syndrome, left leg Category: Medical (2) Osteoarthritis of right hip: Code(s): M16.11 - Unilateral primary osteoarthritis, right hip Category: Medical (3) Right hip pain: Code(s): M25.551 - Pain in right hip Category: Medical (4) Lumbar degenerative disc disease: Code(s): M51.36 - Other intervertebral disc degeneration, lumbar region Category: Medical (5) Radiculopathy, lumbar region: Code(s): M54.16 - Radiculopathy, lumbar region Category: Medical (6) Postlaminectomy syndrome, not elsewhere classified: Code(s): M96.1 - Postlaminectomy syndrome, not elsewhere classified Category: Medical (7) Chronic low back pain: Code(s): M54.50 - Low back pain, unspecified; G89.29 - Other chronic pain Category: Medical Plan Status post Nevro SCS implant April of 2023. Excellent results of intra-articular right hip injection. Now on the background of reduced pain in the right hip she complains on pain in the projection of the iliotibial band on the left. She tried topicals on this side. It was not helpful. She contacted [facility] cuevas trying to spread the stimulation on the painful area but it was not effective. I spoke with Frank [employer] sales representative consultant and I explained to him that I want to send her for physical therapy with physical modalities such as ultrasound and iontophoresis and his recommendations were to stop the device during the application of the energy on the left thigh. Orders: Orders PT Evaluation and Treatment Today M76.32 - Iliotibial band syndrome, left leg Patient Instructions: I here by testify that I spent 38 minutes in conversation with this patient as well as planning her care and organizing this note. Coding Level of Care Code Est Pt Level 4 (38368) Diagnoses Iliotibial band syndrome, left leg M76.32 Osteoarthritis of right hip M16.11 Right hip pain M25.551 Lumbar degenerative disc disease M51.36 Radiculopathy, lumbar region M54.16 Postlaminectomy syndrome, not elsewhere classified M96.1 Chronic low back pain M54.50; G89.29
--- OUTSIDE RECORDS SUMMARY | 2024-11-01 17:51 | XMS_ITS | Clinical Summary ---
Author Organization [facility] Address [address] [place] [address] Care Team Providers Care Er Tech Name Role Phone Nahid Geiger MD Primary Care Provider [phone] Social History Tobacco Use Types Packs/Day Years [...] 1-dose 75+ series) 2021 COVID-19 Vaccine ( - season) 2024 03/26/2020 Influenza Vaccine (#1) 2024 0, 10/11/2018, 11/03/2017, Additional history exists DTap / Tdap / Td (3 - Td or Tdap) 05/26/2027 05/25/2017, 12/28/2007 Pneumococcal Vaccine Completed 12/19/2015, 12/07/19 15 Hepatitis B Vaccines Aged Out No long er eligible based on patient's age to complete this topic RSV Ped < 20 months Aged Out No longe r eligible based on patient's age to complete this topic Care Teams Er Tech Relationship Specialty Start Date End Date Nahid Geiger MD [address] [id number] PCP - General Internal Medicine 09/19/19
--- OUTSIDE RECORDS SUMMARY | 2024-11-01 17:51 | XMS_ITS | Clinical Summary ---
Author Organization [facility] Address [address] [place] [phone] Phone Care Team Providers Care Product Development Intern Name Role Phone America Hall Primary Care Provider + [phone] Allergies Active Allergy Reactions Criticality Noted Date [...] (one) time each day 4 Active Methylcobalamin ([id number] PO) Take by mouth Active VITAMIN D PO Take by mouth Act martine Calcium Carbonate Antacid (TUMS PO) Take by mouth Active Active Problems Problem Noted Date Diagnosed Date Chronic kidney disease, stage 2 (mild) 5 Acid reflux 02/26/2023 Arthritis 02/26/2023 Hyperlipidemia 02/26/2023 Hypertension 02/26/2023 Mild major depression 02/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 [address] [phone] Rikki Malagon MD [address] [phone] Health Maintenance Due Date Last Done Comments Influenza Vaccine (#1) 2024 , 11/23/2019, 10/11/2018, Additional history exists Pneumococcal Vaccine: 50+ Years Completed 12/19/2015, 12/06/2014 Pneumococcal Vaccine: Peds (0 to 5 Years) and At-Risk Patients (6 to 49 Years) Discontinued 12/19/2015, 12/06/2014 Hepatitis B Vaccine Aged Out No longe r eligible based on patient's age to complete this topic Insurance Medicare Medicare [facility] Medicare Un[employer] Care Teams Product Development Intern Relationship Specialty Start Date End Date America Hall PA [address] PCP - General Physician [employer] Head Inspector And Adjuster 04/25/24
== END 2024-11-01 14:54 | disposition home or self-care (01) ==
LOC: HO.PMC 14:36
PROVIDERS: PCP Physician Assistant Medical; Visit Provider Anesthesiology
DX: M76.32 Iliotibial band syndrome, left leg (principal); M16.11 Unilateral primary osteoarthritis, right hip; M25.551 Pain in right hip; M51.369 Other intervertebral disc degeneration, lumbar region without mention of lumbar back pain or lower extremity pain; M54.16 Radiculopathy, lumbar region; M96.1 Postlaminectomy syndrome, not elsewhere classified; M54.50 Low back pain, unspecified; G89.29 Other chronic pain
CPT/HCPCS: 99214

== ENCOUNTER → 2024-11-01 14:36 | Outpatient (BNVA) | payer MEDICARE, OTHER, SELFPAY | PROVIDERS: PCP Physician Assistant Medical; Visit Provider Anesthesiology | DX: M76.32 Iliotibial band syndrome, left leg (principal); M16.11 Unilateral primary osteoarthritis, right hip; M25.551 Pain in right hip; M51.360 Other intervertebral disc degeneration, lumbar region with discogenic back pain only; M96.1 Postlaminectomy syndrome, not elsewhere classified; G89.29 Other chronic pain | CPT/HCPCS: 99212 ==